=== PATIENT | female | born 1955 | race Caucasian/White ===

== ENCOUNTER 2017-11-04 03:56 | Inpatient (IN) | payer MEDICAID ==
[~2017-11-04] VITALS: Ht 172.7 cm; Wt 124.8 kg
[2017-11-04 04:44] LABS: Hematocrit 39.7 % (36.0-46.0); Hemoglobin 13.3 g/dL (12.2-16.2); Mean Corpuscular Hgb Conc. 33.5 g/dL (32.0-36.0); Mean Corpuscular Volume 98.5 fL (80.0-100.0); Platelet Count (auto) 104 10^3/uL (140-450); Red Blood Cells 4.03 10^6/uL (4.0-5.20); Red Cell Distribution Width 14.5 % (11.8-14.3); White Blood Cell 3.3 10^3/uL (4.4-10.8)
[2017-11-04] MEDS ORDERED: cloNIDine HCL 0.1 MG TAB PO ONE ×2 (04:45→05:15)
[2017-11-04 05:01] LABS: Basophils % (manual) 0 (0.0-2.0); Blast Cells 0; Metamyelocytes % 0; Myelocytes % 0; Promyelocytes % 0; Reactive Lymphocytes 0
[2017-11-04 05:15] LABS: Albumin 3.6 g/dL (3.4-5.0); BUN/Creatinine Ratio 11.1; Bilirubin, Total 0.9 mg/dL (0.2-1.0); Calcium 8.6 mg/dL (8.5-10.1); Potassium 4.1 mmol/L (3.5-5.1)
[2017-11-04 06:27] LABS: Band Neutrophils % (manual) 2; Eosinophils % (manual) 1 (0-7); Lymphocytes % (manual) 14 (10.0-50.0); Monocytes % (manual) 3 (0-12)
[2017-11-04 07:11] LABS: Urine Bacteria None Seen /hpf (None Seen)
[2017-11-04] MEDS ORDERED: SPIRONOLACTONE 25 MG TAB PO ONE (07:30)
[2017-11-04] MEDS ORDERED: FUROSEMIDE 40 MG/4 ML VIAL IV ONE (07:30)
[2017-11-04 07:32] LABS: Urine Blood 1+ /uL (Negative)
[2017-11-04 07:35] LABS: Urine WBC 1 /hpf (0 - 5)
[2017-11-04] MEDS ORDERED: IOHEXOL 350 MG/ML 100ML IJ ONE (08:56)
[2017-11-04] MEDS ORDERED: ACETAMINOPHEN 500 MG TAB PO ONE (09:15)
[2017-11-04] MEDS ORDERED: PROMETHAZINE HCL 25 MG/ML 1ML IV PRN (12:45)
[2017-11-04] MEDS ORDERED: HYDROcodone-ACET 5/325MG TAB PO PRN (12:45)
[2017-11-04] MEDS ORDERED: LORazepam 0.5 MG TAB PO PRN (12:45)
[2017-11-04] MEDS ORDERED: LACTULOSE 20Gm/30ML SOLN PO PRN (12:45)
[2017-11-04] MEDS ORDERED: NITROGLYCERIN 0.4 MG SL TAB SL PRN (12:45)
[2017-11-04] MEDS ORDERED: MORPHINE SULFATE 10 MG/ML INJ 1ML SDV IV PRN ×2 (12:45)
[2017-11-04] MEDS ORDERED: BENAZEPRIL HCL 10 MG TAB PO ONE (13:00)
[2017-11-04] MEDS ORDERED: METOPROLOL TARTRATE 50 MG TAB PO ONE (13:00)
[2017-11-04] MEDS ORDERED: ENALAPRIL MALEATE 2.5 MG TAB PO SCH (13:00)
[2017-11-04] MEDS ORDERED: CARVEDILOL 3.125 MG TAB PO SCH (13:00)
[2017-11-04] MEDS: NITROGLYCERIN 0.2MG/HR TOPICAL PATCH TD SCH (13:15)
[2017-11-04] MEDS: GABAPENTIN 300 MG CAP PO SCH ×2 (13:15→22:28)
[2017-11-04 13:18] LABS: Alcohol, Urine < 3.0 mg/dL (0-5); Amphetamine Screen, Urine NEGATIVE (NEGATIVE); Barbiturate Scree,Urine NEGATIVE (NEGATIVE); Benzodiazephine Screen, Urine NEGATIVE (NEGATIVE); Cannabinoid Screen, Urine NEGATIVE (NEGATIVE); Cocaine Screen, Urine NEGATIVE (NEGATIVE); Opiate Scree,Urine NEGATIVE (NEGATIVE); Phencyclidine Screen, Urine NEGATIVE (NEGATIVE)
[2017-11-04] MEDS: SODIUM CHLOR 0.9% PF (SALINE LOCK) 10ML VIAL IV SCH ×2 (15:17→22:28)
[2017-11-04] MEDS ORDERED: ENALAPRIL MALEATE 10 MG TAB PO ONE (15:45)
[2017-11-04 17:00] VITALS: BP 146/81
[2017-11-04] MEDS ORDERED: GLIM4TAB42 PO (17:08)
[2017-11-04] MEDS ORDERED: FURO40TA PO (17:08)
[2017-11-04] MEDS ORDERED: BENA20TA14 PO (17:08)
[2017-11-04] MEDS ORDERED: SIMV10TA84 PO (17:08)
[2017-11-04] MEDS ORDERED: POTA10TA51 PO (17:08)
[2017-11-04] MEDS ORDERED: METO-159 PO (17:08)
[2017-11-04] MEDS ORDERED: METF-371 PO (17:08)
[2017-11-04] MEDS ORDERED: GABA100C9 PO (17:08)
[2017-11-04] MEDS ORDERED: SITA100T7 PO (17:08)
[2017-11-04] MEDS: FUROSEMIDE 40 MG/4 ML VIAL IV SCH (17:37)
[2017-11-04] MEDS ORDERED: INSLANTI SC (20:22)
[2017-11-04] MEDS ORDERED: FUROSEMIDE 40 MG/4 ML VIAL IV SCH (22:00)
[2017-11-04] MEDS: InsuLIN REG 1unit/0.01ml Soln (100units/ml) SC SCH (22:00)
[2017-11-04] MEDS ORDERED: DEXTROSE (50%) 50ML SYRG IV PRN (22:15)
[2017-11-04 22:16] VITALS: BP 139/74
[2017-11-04] MEDS: ATORVASTATIN 20 MG TAB PO SCH (22:28)
[2017-11-04] MEDS: METOPROLOL TARTRATE 50 MG TAB PO SCH (22:29)
[2017-11-04] MEDS: ACCU-CHEK COMFORT CURVE STRIP VI SCH (22:29)
[2017-11-04] MEDS: POTASSIUM CHL 20 Meq TABLET PO SCH (22:30)
[2017-11-05] MEDS: TEMAZEPAM 15 MG CAP PO PRN ×2 (00:50→21:42)
[2017-11-05 04:50] VITALS: BP 123/58
[2017-11-05] MEDS: SODIUM CHLOR 0.9% PF (SALINE LOCK) 10ML VIAL IV SCH ×3 (05:59→21:43)
[2017-11-05] MEDS: FUROSEMIDE 40 MG/4 ML VIAL IV SCH ×2 (06:00→17:59)
[2017-11-05] MEDS: ACCU-CHEK COMFORT CURVE STRIP VI SCH ×4 (06:01→21:43)
[2017-11-05] MEDS: InsuLIN REG 1unit/0.01ml Soln (100units/ml) SC SCH ×4 (06:21→22:00)
[2017-11-05] MEDS: INSULIN DETEMIR(LEVEMIR) 1unit/0.01ml Soln (100units/ml) SC SCH (06:21)
[2017-11-05 07:24] LABS: Basophils # (auto) 0 uL; Basophils % (auto) 0.6 % (0.0-2.0); Eosinophils # (auto) 0 uL; Eosinophils % (auto) 0.5 % (0.0-7.0); Hematocrit 39.6 % (36.0-46.0); Hemoglobin 13.3 g/dL (12.2-16.2); Lymphocytes # (auto) 0.7 uL; Lymphocytes % (auto) 24.5 % (10.0-50.0); Mean Corpuscular Hemoglobin 32.9 pg (28.0-32.0); Mean Corpuscular Hgb Conc. 33.7 g/dL (32.0-36.0); Mean Corpuscular Volume 97.6 fL (80.0-100.0); Monocytes # (auto) 0.5 uL; Monocytes % (auto) 17.3 % (0.0-12.0); Neutrophils # (auto) 1.6 uL; Neutrophils % (auto) 57.1 % (37.0-80.0); Nucleated Red Blood Cells % 0.1 %; Platelet Count (auto) 98 10^3/uL (140-450); Red Blood Cells 4.05 10^6/uL (4.0-5.20); Red Cell Distribution Width 14.6 % (11.8-14.3); White Blood Cell 2.8 10^3/uL (4.4-10.8)
[2017-11-05 07:47] LABS: Albumin 3.3 g/dL (3.4-5.0); BUN/Creatinine Ratio 14.7; Bilirubin, Total 0.7 mg/dL (0.2-1.0); Calcium 8.7 mg/dL (8.5-10.1); Potassium 3.8 mmol/L (3.5-5.1); Total Protein 7.5 g/dL (6.4-8.2)
[2017-11-05 08:00] VITALS: BP 148/63
[2017-11-05] MEDS ORDERED: ADENOSINE 105 MG in GIVE UN-DILUTED 0 ML IV STA (09:32)
[2017-11-05 10:14] VITALS: BP 151/71
[2017-11-05] MEDS: POTASSIUM CHL 20 Meq TABLET PO SCH ×2 (11:49→21:42)
[2017-11-05] MEDS: GABAPENTIN 300 MG CAP PO SCH ×2 (11:50→21:42)
[2017-11-05] MEDS: BENAZEPRIL HCL 10 MG TAB PO SCH (11:50)
[2017-11-05] MEDS: METOPROLOL TARTRATE 50 MG TAB PO SCH ×2 (11:50→22:06)
[2017-11-05] MEDS: ENOXAPARIN SOD 40 MG/0.4 ML SYRINGE SC SCH (11:51)
[2017-11-05] MEDS: PANTOPRAZOLE 40 MG TAB PO SCH (11:51)
[2017-11-05] MEDS: ENALAPRIL MALEATE 10 MG TAB PO SCH (11:51)
[2017-11-05] MEDS: NITROGLYCERIN 0.2MG/HR TOPICAL PATCH TD SCH (11:51)
[2017-11-05 12:00] VITALS: BP 156/81
[2017-11-05] MEDS: ACETAMINOPHEN 500 MG TAB PO PRN (16:36)
[2017-11-05] MEDS ORDERED: cefTRIAXone 1GM/10ml IVPUSH 10 ML IV ONE (17:15)
[2017-11-05 17:20] VITALS: BP 114/62
[2017-11-05] MEDS ORDERED: ALBUTEROL SULF 2.5 MG/0.5ML(0.5%) NEB SOLN NEB SCH (18:00)
[2017-11-05] MEDS: ALBUTEROL SULF 2.5 MG/0.5ML(0.5%) NEB SOLN NEB SCH ×2 (18:49→22:04)
[2017-11-05] MEDS: ATORVASTATIN 20 MG TAB PO SCH (21:42)
[2017-11-05 22:00] VITALS: BP 139/69
[2017-11-06] MEDS: ALBUTEROL SULF 2.5 MG/0.5ML(0.5%) NEB SOLN NEB SCH ×6 (02:14→23:10)
[2017-11-06 05:00] VITALS: BP 113/44
[2017-11-06 06:24] LABS: Basophils # (auto) 0 uL; Basophils % (auto) 0.5 % (0.0-2.0); Eosinophils # (auto) 0 uL; Hematocrit 38.3 % (36.0-46.0); Hemoglobin 12.7 g/dL (12.2-16.2); Lymphocytes # (auto) 0.8 uL; Lymphocytes % (auto) 28.1 % (10.0-50.0); Mean Corpuscular Hemoglobin 32.3 pg (28.0-32.0); Mean Corpuscular Hgb Conc. 33.1 g/dL (32.0-36.0); Mean Corpuscular Volume 97.5 fL (80.0-100.0); Monocytes # (auto) 0.5 uL; Monocytes % (auto) 16.3 % (0.0-12.0); Neutrophils # (auto) 1.6 uL; Neutrophils % (auto) 54.1 % (37.0-80.0); Nucleated Red Blood Cells % 0.4 %; Platelet Count (auto) 102 10^3/uL (140-450); Red Blood Cells 3.93 10^6/uL (4.0-5.20); Red Cell Distribution Width 14.4 % (11.8-14.3)
[2017-11-06] MEDS: FUROSEMIDE 40 MG/4 ML VIAL IV SCH (06:38)
[2017-11-06] MEDS: ACCU-CHEK COMFORT CURVE STRIP VI SCH ×4 (06:39→22:40)
[2017-11-06] MEDS: SODIUM CHLOR 0.9% PF (SALINE LOCK) 10ML VIAL IV SCH ×3 (06:39→22:39)
[2017-11-06] MEDS: InsuLIN REG 1unit/0.01ml Soln (100units/ml) SC SCH ×4 (06:39→22:40)
[2017-11-06] MEDS: INSULIN DETEMIR(LEVEMIR) 1unit/0.01ml Soln (100units/ml) SC SCH (06:39)
[2017-11-06 06:43] LABS: Albumin 3.1 g/dL (3.4-5.0); BUN/Creatinine Ratio 17.6; Bilirubin, Total 0.7 mg/dL (0.2-1.0); Calcium 8.4 mg/dL (8.5-10.1); Potassium 4.1 mmol/L (3.5-5.1); Total Protein 7.1 g/dL (6.4-8.2)
[2017-11-06 07:57] VITALS: BP 145/66
[2017-11-06] MEDS: ENOXAPARIN SOD 40 MG/0.4 ML SYRINGE SC SCH (08:59)
[2017-11-06] MEDS: GABAPENTIN 300 MG CAP PO SCH ×2 (08:59→22:40)
[2017-11-06] MEDS: BENAZEPRIL HCL 10 MG TAB PO SCH (09:00)
[2017-11-06] MEDS: PANTOPRAZOLE 40 MG TAB PO SCH (09:01)
[2017-11-06] MEDS: POTASSIUM CHL 20 Meq TABLET PO SCH ×2 (09:01→22:39)
[2017-11-06] MEDS: METOPROLOL TARTRATE 50 MG TAB PO SCH ×2 (09:01→22:40)
[2017-11-06] MEDS: ENALAPRIL MALEATE 10 MG TAB PO SCH (09:01)
[2017-11-06] MEDS: cefTRIAXone 1GM/10ml IVPUSH 10 ML IV SCH (09:02)
[2017-11-06] MEDS: NITROGLYCERIN 0.2MG/HR TOPICAL PATCH TD SCH (09:02)
[2017-11-06 12:00] VITALS: BP 141/61
[2017-11-06] MEDS: ACETAMINOPHEN 500 MG TAB PO PRN (12:22)
[2017-11-06 17:00] VITALS: BP 122/66
[2017-11-06] MEDS: ATORVASTATIN 20 MG TAB PO SCH (22:39)
[2017-11-06 23:34] VITALS: BP 148/78
[2017-11-07] MEDS: ALBUTEROL SULF 2.5 MG/0.5ML(0.5%) NEB SOLN NEB SCH ×6 (02:37→22:00)
[2017-11-07 04:55] VITALS: BP 142/83
[2017-11-07 06:06] VITALS: BP 155/73
[2017-11-07] MEDS: SODIUM CHLOR 0.9% PF (SALINE LOCK) 10ML VIAL IV SCH ×2 (06:37→17:42)
[2017-11-07] MEDS: INSULIN DETEMIR(LEVEMIR) 1unit/0.01ml Soln (100units/ml) SC SCH (06:38)
[2017-11-07] MEDS: InsuLIN REG 1unit/0.01ml Soln (100units/ml) SC SCH ×3 (06:38→17:00)
[2017-11-07] MEDS: ACCU-CHEK COMFORT CURVE STRIP VI SCH ×3 (06:38→17:43)
[2017-11-07 08:30] VITALS: BP 146/54
[2017-11-07] MEDS: POTASSIUM CHL 20 Meq TABLET PO SCH (09:12)
[2017-11-07] MEDS: GABAPENTIN 300 MG CAP PO SCH (09:14)
[2017-11-07] MEDS: METOPROLOL TARTRATE 50 MG TAB PO SCH (09:14)
[2017-11-07] MEDS: ENALAPRIL MALEATE 10 MG TAB PO SCH (09:15)
[2017-11-07] MEDS: PANTOPRAZOLE 40 MG TAB PO SCH (09:15)
[2017-11-07] MEDS: BENAZEPRIL HCL 10 MG TAB PO SCH (09:16)
[2017-11-07] MEDS: ENOXAPARIN SOD 40 MG/0.4 ML SYRINGE SC SCH (09:16)
[2017-11-07] MEDS: cefTRIAXone 1GM/10ml IVPUSH 10 ML IV SCH (09:19)
[2017-11-07] MEDS: NITROGLYCERIN 0.2MG/HR TOPICAL PATCH TD SCH (10:00)
[2017-11-07 11:41] VITALS: BP 141/64
[2017-11-07 12:30] VITALS: BP 134/50
== END 2017-11-07 20:40 | disposition home or self-care (01) | DRG 194 ==
LOC: ER 04:02 → TELE 04:03 → TELE-EAST 16:29
PROVIDERS: ADMIT Internal Medicine; ATTEND Internal Medicine
DX: I13.0 Hypertensive heart and chronic kidney disease with heart failure and stage 1 through stage 4 chronic kidney disease, or unspecified chronic kidney disease (principal); E11.21 Type 2 diabetes mellitus with diabetic nephropathy; D69.6 Thrombocytopenia, unspecified; E11.40 Type 2 diabetes mellitus with diabetic neuropathy, unspecified; E44.0 Moderate protein-calorie malnutrition; E11.22 Type 2 diabetes mellitus with diabetic chronic kidney disease; N18.3 Chronic kidney disease, stage 3 (moderate); J20.9 Acute bronchitis, unspecified; I50.33 Acute on chronic diastolic (congestive) heart failure; I16.0 Hypertensive urgency; E66.01 Morbid (severe) obesity due to excess calories; R09.02 Hypoxemia; Z68.41 Body mass index [BMI] 40.0-44.9, adult; Z90.49 Acquired absence of other specified parts of digestive tract; Z79.4 Long term (current) use of insulin; Z79.899 Other long term (current) drug therapy; R09.89 Other specified symptoms and signs involving the circulatory and respiratory systems
CPT/HCPCS: 36415; 36600; 71045; 71275; 78452; 80053; 80061; 80307; 81001; 82550; 82805; 82962; 83735; 83880; 84443; 84484; 85007; 85025; 85027; 85379; 85652; 86141; 87040; 87400; 93005; 93017; 93306; 93970; 94640; 96374; J0153; J1815

== ENCOUNTER 2022-04-24 04:23 | Inpatient (IN) | payer MEDICARE, MEDICAID ==
[2022-04-24] VITALS (30 sets, daily range): BP systolic 127–168; BP diastolic 42–79
[~2022-04-24] VITALS: Ht 167.6 cm; Wt 84.9 kg
[~2022-04-24 04:23] MED LIST: BENA20TA14 PO; FURO1TAB31 PO; GABA100C9 PO; GLIM4TAB42 PO; INSLANTI SC; METF-371 PO; METO-159 PO; POTA10TA51 PO; SIMV10TA84 PO; SITA100T7 PO
[2022-04-24] MEDS ORDERED: ALBUTEROL SULF 2.5 MG/0.5ML(0.5%) NEB SOLN NEB ONE (05:00)
[2022-04-24] MEDS ORDERED: methylPREDNISolone SOD SUCC 125 MG/2 ML VL IV ONE (05:00)
[2022-04-24] MEDS ORDERED: IPRATROPIUM BROM 0.5 MG/2.5ML INH SOL NEB ONE (05:00)
[2022-04-24 05:07] LABS: Basophils # (auto) 0 10 ^3/uL (0-0.2); Basophils % (auto) 0.1 % (0.0-2.0); Eosinophils # (auto) 0.2 10 ^3/uL (0-0.8); Eosinophils % (auto) 1.9 % (0.0-7.0); Lymphocytes % (auto) 7.9 % (10.0-50.0); Mean Corpuscular Hemoglobin 30.1 pg (28.0-32.0); Mean Corpuscular Hgb Conc. 31.7 g/dL (32.0-36.0); Monocytes # (auto) 0.8 10 ^3/uL (0-1.3); Monocytes % (auto) 5.7 % (0.0-12.0); Neutrophils # (auto) 11.2 10 ^3/uL (1.6-8.6); Neutrophils % (auto) 84.4 % (37.0-80.0); Red Blood Cells 4.32 10^6/uL (4.0-5.20); Red Cell Distribution Width 15.9 % (11.8-14.3); White Blood Cell 13.2 10^3/uL (4.4-10.8)
[2022-04-24] MEDS ORDERED: AZITHROMYCIN 500MG/ 250ML 250 ML IV ONE (05:45)
[2022-04-24] MEDS ORDERED: cefTRIAXone 1GM/50ML D5W 50 ML IV ONE (05:45)
[2022-04-24 06:13] LABS: Albumin 2.2 g/dL (3.4-5.0); Calcium 8.4 mg/dL (8.5-10.1); Magnesium 3.2 mg/dL (1.6-2.6); Potassium 4.6 mmol/L (3.5-5.1)
[2022-04-24 06:16] LABS: Bilirubin, Total 1.8 mg/dL (0.2-1.0); Total Protein 8.2 g/dL (6.4-8.2)
[2022-04-24 06:18] LABS: BUN/Creatinine Ratio 40.8
[2022-04-24 07:00] LABS: Partial Thromboplastin Time 31.6 sec (23.6-33.0)
[2022-04-24 07:24] LABS: Urine Bacteria MANY /hpf (None Seen); Urine Blood 3+ /uL (Negative); Urine Budding Yeast OCCASIONAL /hpf (None Seen); Urine Mucus FEW (None Seen); Urine Specific Gravity 1.017 (1.001-1.035); Urine WBC 423 /hpf (0 - 5); Urine WBC Clumps PRESENT /hpf (None Seen)
[2022-04-24] MEDS ORDERED: ONDANSETRON HCL 4 MG/2 ML VIAL IV PRN (11:15)
[2022-04-24] MEDS ORDERED: DEXTROSE (50%) 50ML SYRG IV PRN (11:15)
[2022-04-24] MEDS ORDERED: MORPHINE SULFATE INJ 2 MG/ml SYRG IV PRN ×2 (11:15)
[2022-04-24] MEDS ORDERED: FUROSEMIDE 40 MG/4 ML VIAL IV ONE (11:15)
[2022-04-24] MEDS ORDERED: NITROGLYCERIN 0.4 MG SL TAB SL PRN (11:15)
[2022-04-24 11:32] LABS: Cholesterol 83 mg/dL (< 200)
[2022-04-24 11:35] LABS: HDL Cholesterol 19 mg/dL (40-59); LDL Cholesterol 51 mg/dL (< 100); Triglycerides 162 mg/dL (< 150)
[2022-04-24] MEDS: IPRATROPIUM BROM 0.5 MG/2.5ML INH SOL NEB SCH ×2 (11:57→19:57)
[2022-04-24] MEDS: ALBUTEROL SULF 2.5 MG/0.5ML(0.5%) NEB SOLN NEB SCH ×2 (11:57→19:57)
[2022-04-24] MEDS: ACCU-CHEK COMFORT CURVE STRIP VI SCH ×3 (13:09→22:13)
[2022-04-24] MEDS: InsuLIN REG 1unit/0.01ml Soln (100units/ml) SC SCH ×3 (13:43→22:16)
[2022-04-24] MEDS ORDERED: HEPARIN SODIUM (PORCINE) 5000 UNITS/ML 1ML VIAL IV ONE (15:45)
[2022-04-24 17:01] LABS: Basophils # (auto) 0.1 10 ^3/uL (0-0.2); Basophils % (auto) 1.6 % (0.0-2.0); Eosinophils # (auto) 0 10 ^3/uL (0-0.8); Hematocrit 40.8 % (36.0-46.0); Hemoglobin 12.9 g/dL (12.2-16.2); Lymphocytes # (auto) 0.3 10 ^3/uL (0.4-5.4); Lymphocytes % (auto) 3.7 % (10.0-50.0); Mean Corpuscular Hemoglobin 30.4 pg (28.0-32.0); Mean Corpuscular Hgb Conc. 31.6 g/dL (32.0-36.0); Mean Corpuscular Volume 96.2 fL (80.0-100.0); Monocytes # (auto) 0.2 10 ^3/uL (0-1.3); Monocytes % (auto) 2.1 % (0.0-12.0); Neutrophils # (auto) 8.4 10 ^3/uL (1.6-8.6); Neutrophils % (auto) 92.6 % (37.0-80.0); Nucleated Red Blood Cells % 0.4 %; Red Blood Cells 4.25 10^6/uL (4.0-5.20); Red Cell Distribution Width 15.9 % (11.8-14.3)
[2022-04-24] MEDS: HEPARIN DRIP/D5W 100UNITS/ML 250 ML IV SCH (17:04)
[2022-04-24 17:35] LABS: INR 1.36 (0.9-1.15); Partial Thromboplastin Time 30.9 sec (23.6-33.0)
[2022-04-24] MEDS ORDERED: LORazepam 2MG/ML-1ML VIAL IV ONE (18:00)
[2022-04-24] MEDS ORDERED: FUROSEMIDE 20 MG/2 ML VIAL IV ONE (18:00)
[2022-04-24 19:00] LABS: Urine Bacteria FEW /hpf (None Seen); Urine Blood 3+ /uL (Negative); Urine Mucus FEW (None Seen); Urine WBC 219 /hpf (0 - 5); Urine WBC Clumps PRESENT /hpf (None Seen)
[2022-04-24] MEDS ORDERED: LIDOCAINE 1% (LOCAL ANESTH.) PF 5ml SDV ID ONE (19:30)
[2022-04-24 19:36] LABS: Protein, Urine 20.1 mg/dL (0.0-11.9)
[2022-04-24] MEDS ORDERED: HEPARIN SODIUM (PORCINE) 5000 UNITS/ML 1ML VIAL SC SCH (22:00)
[2022-04-24] MEDS: SODIUM CHLOR 0.9% PF (SALINE LOCK) 10ML VIAL/SYR IV SCH (22:12)
[2022-04-24 23:36] LABS: Basophils # (auto) 0 10 ^3/uL (0-0.2); Basophils % (auto) 0.3 % (0.0-2.0); Eosinophils # (auto) 0 10 ^3/uL (0-0.8); Hematocrit 39.5 % (36.0-46.0); Hemoglobin 12.3 g/dL (12.2-16.2); Lymphocytes # (auto) 0.6 10 ^3/uL (0.4-5.4); Lymphocytes % (auto) 4.7 % (10.0-50.0); Mean Corpuscular Hemoglobin 30.3 pg (28.0-32.0); Mean Corpuscular Hgb Conc. 31.1 g/dL (32.0-36.0); Mean Corpuscular Volume 97.4 fL (80.0-100.0); Monocytes # (auto) 0.5 10 ^3/uL (0-1.3); Monocytes % (auto) 4.7 % (0.0-12.0); Neutrophils # (auto) 10.6 10 ^3/uL (1.6-8.6); Neutrophils % (auto) 90.3 % (37.0-80.0); Nucleated Red Blood Cells % 0.2 %; Red Blood Cells 4.05 10^6/uL (4.0-5.20); Red Cell Distribution Width 16.2 % (11.8-14.3); White Blood Cell 11.7 10^3/uL (4.4-10.8)
[2022-04-24 23:51] LABS: INR 1.37 (0.9-1.15); Partial Thromboplastin Time 53.8 sec (23.6-33.0)
[2022-04-25] VITALS (54 sets, daily range): BP systolic 89–162; BP diastolic 38–81
[2022-04-25] MEDS: guaiFENesin-DM 100/10mg/5ml SYR PO PRN ×3 (00:01→16:08)
[2022-04-25] MEDS: ALBUTEROL SULF 2.5 MG/0.5ML(0.5%) NEB SOLN NEB SCH ×4 (01:50→22:22)
[2022-04-25 05:30] LABS: Basophils # (auto) 0.1 10 ^3/uL (0-0.2); Basophils % (auto) 0.5 % (0.0-2.0); Eosinophils # (auto) 0 10 ^3/uL (0-0.8); Hemoglobin 12.1 g/dL (12.2-16.2); Lymphocytes # (auto) 0.5 10 ^3/uL (0.4-5.4); Lymphocytes % (auto) 3.9 % (10.0-50.0); Mean Corpuscular Hemoglobin 31.4 pg (28.0-32.0); Mean Corpuscular Hgb Conc. 32.8 g/dL (32.0-36.0); Mean Corpuscular Volume 95.8 fL (80.0-100.0); Monocytes # (auto) 0.6 10 ^3/uL (0-1.3); Neutrophils # (auto) 11.6 10 ^3/uL (1.6-8.6); Neutrophils % (auto) 90.6 % (37.0-80.0); Nucleated Red Blood Cells % 0.2 %; Red Blood Cells 3.87 10^6/uL (4.0-5.20); Red Cell Distribution Width 15.8 % (11.8-14.3); White Blood Cell 12.8 10^3/uL (4.4-10.8)
[2022-04-25 05:42] LABS: INR 1.38 (0.9-1.15); Partial Thromboplastin Time 48.1 sec (23.6-33.0)
[2022-04-25 05:56] LABS: Albumin 2.1 g/dL (3.4-5.0); Calcium 8.6 mg/dL (8.5-10.1); Potassium 4.4 mmol/L (3.5-5.1)
[2022-04-25] MEDS ORDERED: methylPREDNISolone SOD SUCC 125 MG/2 ML VL IV SCH (06:00)
[2022-04-25 06:04] LABS: BUN/Creatinine Ratio 53.6; Bilirubin, Direct 0.5 mg/dL (0-0.2); Bilirubin, Total 0.8 mg/dL (0.2-1.0); Phosphorus 5.9 mg/dL (2.5-4.90); Total Protein 7.7 g/dL (6.4-8.2); Uric Acid 22.5 mg/dL (2.6-6.0)
[2022-04-25] MEDS: HEPARIN DRIP/D5W 100UNITS/ML 250 ML IV SCH (06:15)
[2022-04-25] MEDS: InsuLIN REG 1unit/0.01ml Soln (100units/ml) SC SCH ×4 (06:42→22:41)
[2022-04-25] MEDS: ACCU-CHEK COMFORT CURVE STRIP VI SCH ×4 (06:42→22:40)
[2022-04-25] MEDS: IPRATROPIUM BROM 0.5 MG/2.5ML INH SOL NEB SCH ×3 (07:09→22:22)
[2022-04-25] MEDS ORDERED: cefTRIAXone 1GM/50ML D5W 50 ML IV SCH (09:00)
[2022-04-25] MEDS ORDERED: FUROSEMIDE 20 MG/2 ML VIAL IV ONE (09:45)
[2022-04-25] MEDS ORDERED: ENOXAPARIN SOD 40 MG/0.4 ML SYRINGE SC SCH (10:00)
[2022-04-25] MEDS ORDERED: AZITHROMYCIN 500MG/ 250ML 250 ML IV SCH (10:00)
[2022-04-25] MEDS: SODIUM CHLOR 0.9% PF (SALINE LOCK) 10ML VIAL/SYR IV SCH ×2 (10:10→21:21)
[2022-04-25] MEDS: LORazepam 2MG/ML-1ML VIAL IV PRN ×2 (10:18)
[2022-04-25] MEDS: INSULIN LANTUS (GLARGINE) 1 /0.01ml (100units/ml) SC SCH (10:18)
[2022-04-25 11:13] LABS: INR 1.37 (0.9-1.15)
[2022-04-25] MEDS ORDERED: FUROSEMIDE 40 MG/4 ML VIAL IV ONE (11:15)
[2022-04-25] MEDS ORDERED: FAMOTIDINE (10MG/ML) 2ML VL IV ONE (11:15)
[2022-04-25] MEDS: PIPERACILLIN-TAZOB 2.25GM 50 ML IV SCH ×2 (12:00→18:21)
[2022-04-25] MEDS ORDERED: LORazepam 2MG/ML-1ML VIAL IV PRN (14:15)
[2022-04-25] MEDS: hydrALAZINE HCL 20 MG/ML VL IV PRN (14:36)
[2022-04-25] MEDS ORDERED: ETOMIDATE (2MG/ML) 20ML VIAL IV ONE (16:45)
[2022-04-25] MEDS ORDERED: SUCCINYLCHOLINE CHLORIDE 20 MG/ML 10ML VIAL IV ONE ×2 (16:45→17:45)
[2022-04-25] MEDS ORDERED: PROPOFOL 100 ML IV ONE (17:39)
[2022-04-25] MEDS: PROPOFOL 100 ML IV SCH ×3 (17:45→22:15)
[2022-04-25] MEDS: MIDAZOLAM DRIP 50 mg/50mL 50 ML IV SCH ×3 (18:00→22:15)
[2022-04-25] MEDS ORDERED: MIDAZOLAM DRIP 50 mg/50mL 50 ML IV ONE (18:12)
[2022-04-25] MEDS ORDERED: fentaNYL Drip 2500mCg/250mlNS 250 ML IV SCH ×2 (18:15→22:15)
[2022-04-25] MEDS ORDERED: fentaNYL Drip 2500mCg/250mlNS 250 ML IV ONE (18:22)
[2022-04-25] MEDS ORDERED: ROCURONIUM 10MG/ML 10ML VIAL IV ONE (19:00)
[2022-04-25] MEDS ORDERED: ROCURONIUM 10MG/ML 10ML VIAL IV PRN (19:00)
[2022-04-25] MEDS: NOREPINEPHRINE 8 MG/250ML KIT 250 ML IV SCH (19:21)
[2022-04-25 19:22] LABS: INR 1.38 (0.9-1.15); Partial Thromboplastin Time 60.6 sec (23.6-33.0)
[2022-04-25] MEDS: methylPREDNISolone SOD SUCC 40 MG/ML VL IV SCH (21:48)
[2022-04-25] MEDS ORDERED: PROPOFOL 100 ML IV SCH (22:15)
[2022-04-25] MEDS: fentaNYL Drip 2500mCg/250mlNS 250 ML IV SCH (22:15)
[2022-04-25] MEDS ORDERED: MIDAZOLAM DRIP 50 mg/50mL 50 ML IV SCH (22:15)
[2022-04-26] VITALS (98 sets, daily range): BP systolic 96–144; BP diastolic 37–77
[2022-04-26 01:17] LABS: INR 1.41 (0.9-1.15)
[2022-04-26 01:19] LABS: Partial Thromboplastin Time 77.7 sec (23.6-33.0)
[2022-04-26] MEDS: PIPERACILLIN-TAZOB 2.25GM 50 ML IV SCH ×5 (02:46→23:41)
[2022-04-26] MEDS: PROPOFOL 100 ML IV SCH ×3 (02:47→18:25)
[2022-04-26] MEDS: MIDAZOLAM DRIP 50 mg/50mL 50 ML IV SCH ×5 (02:48→22:11)
[2022-04-26 04:56] LABS: Basophils # (auto) 0 10 ^3/uL (0-0.2); Basophils % (auto) 0.3 % (0.0-2.0); Eosinophils # (auto) 0 10 ^3/uL (0-0.8); Hematocrit 37.9 % (36.0-46.0); Hemoglobin 11.9 g/dL (12.2-16.2); Lymphocytes # (auto) 0.3 10 ^3/uL (0.4-5.4); Lymphocytes % (auto) 2.1 % (10.0-50.0); Mean Corpuscular Hemoglobin 30.3 pg (28.0-32.0); Mean Corpuscular Hgb Conc. 31.3 g/dL (32.0-36.0); Mean Corpuscular Volume 96.7 fL (80.0-100.0); Monocytes # (auto) 0.6 10 ^3/uL (0-1.3); Monocytes % (auto) 3.7 % (0.0-12.0); Neutrophils # (auto) 14.3 10 ^3/uL (1.6-8.6); Neutrophils % (auto) 93.9 % (37.0-80.0); Nucleated Red Blood Cells % 0.2 %; Red Blood Cells 3.92 10^6/uL (4.0-5.20); Red Cell Distribution Width 16.9 % (11.8-14.3); White Blood Cell 15.3 10^3/uL (4.4-10.8)
[2022-04-26 05:13] LABS: Potassium 4.3 mmol/L (3.5-5.1)
[2022-04-26 05:19] LABS: BUN/Creatinine Ratio 59.3; Total Protein 7.3 g/dL (6.4-8.2)
[2022-04-26 05:35] LABS: INR 1.44 (0.9-1.15); Partial Thromboplastin Time 39.3 sec (23.6-33.0)
[2022-04-26] MEDS: ACCU-CHEK COMFORT CURVE STRIP VI SCH ×4 (05:42→21:55)
[2022-04-26] MEDS: InsuLIN REG 1unit/0.01ml Soln (100units/ml) SC SCH ×4 (05:43→21:54)
[2022-04-26] MEDS: ALBUTEROL SULF 2.5 MG/0.5ML(0.5%) NEB SOLN NEB SCH ×3 (06:43→20:36)
[2022-04-26] MEDS: IPRATROPIUM BROM 0.5 MG/2.5ML INH SOL NEB SCH ×3 (06:43→20:36)
[2022-04-26] MEDS ORDERED: FUROSEMIDE 20 MG/2 ML VIAL IV SCH (10:00)
[2022-04-26] MEDS: SODIUM CHLOR 0.9% PF (SALINE LOCK) 10ML VIAL/SYR IV SCH ×2 (10:00→21:50)
[2022-04-26] MEDS: INSULIN LANTUS (GLARGINE) 1 /0.01ml (100units/ml) SC SCH (11:12)
[2022-04-26] MEDS: FAMOTIDINE (10MG/ML) 2ML VL IV SCH (11:31)
[2022-04-26] MEDS: methylPREDNISolone SOD SUCC 40 MG/ML VL IV SCH ×2 (11:31→21:49)
[2022-04-26] MEDS ORDERED: FUROSEMIDE 40 MG/4 ML VIAL IV ONE (13:00)
[2022-04-26] MEDS ORDERED: Glucerna 1.2 Cal 1Liter BOTTLE GT SCH (13:00)
[2022-04-26] MEDS: HEPARIN DRIP/D5W 100UNITS/ML 250 ML IV SCH (13:15)
[2022-04-26] MEDS: fentaNYL Drip 2500mCg/250mlNS 250 ML IV SCH (13:59)
[2022-04-26] MEDS: NOREPINEPHRINE 8 MG/250ML KIT 250 ML IV SCH (19:00)
[2022-04-27] VITALS (85 sets, daily range): BP systolic 100–126; BP diastolic 38–47
[2022-04-27] MEDS: MIDAZOLAM DRIP 50 mg/50mL 50 ML IV SCH ×3 (03:25→13:45)
[2022-04-27] MEDS: PROPOFOL 100 ML IV SCH (04:10)
[2022-04-27 05:25] LABS: Basophils # (auto) 0 10 ^3/uL (0-0.2); Basophils % (auto) 0.2 % (0.0-2.0); Eosinophils # (auto) 0 10 ^3/uL (0-0.8); Hemoglobin 10.7 g/dL (12.2-16.2); Lymphocytes # (auto) 0.2 10 ^3/uL (0.4-5.4)
[2022-04-27 05:32] LABS: Hematocrit 33.6 % (36.0-46.0); Lymphocytes % (auto) 2.6 % (10.0-50.0); Mean Corpuscular Hemoglobin 31.2 pg (28.0-32.0); Mean Corpuscular Hgb Conc. 31.8 g/dL (32.0-36.0); Mean Corpuscular Volume 98.1 fL (80.0-100.0); Monocytes # (auto) 0.3 10 ^3/uL (0-1.3); Monocytes % (auto) 3.6 % (0.0-12.0); Neutrophils # (auto) 8.2 10 ^3/uL (1.6-8.6); Neutrophils % (auto) 93.6 % (37.0-80.0); Nucleated Red Blood Cells % 0.3 %; Red Blood Cells 3.43 10^6/uL (4.0-5.20); White Blood Cell 8.8 10^3/uL (4.4-10.8)
[2022-04-27 05:39] LABS: INR 1.27 (0.9-1.15); Partial Thromboplastin Time 30.2 sec (23.6-33.0)
[2022-04-27 06:01] LABS: BUN/Creatinine Ratio 48.3; Calcium 9.3 mg/dL (8.5-10.1); Potassium 4.7 mmol/L (3.5-5.1)
[2022-04-27] MEDS: ALBUTEROL SULF 2.5 MG/0.5ML(0.5%) NEB SOLN NEB SCH ×3 (06:05→18:49)
[2022-04-27] MEDS: IPRATROPIUM BROM 0.5 MG/2.5ML INH SOL NEB SCH ×3 (06:05→18:49)
[2022-04-27] MEDS: PIPERACILLIN-TAZOB 2.25GM 50 ML IV SCH ×4 (06:11→23:56)
[2022-04-27] MEDS: ACCU-CHEK COMFORT CURVE STRIP VI SCH ×4 (06:15→21:41)
[2022-04-27] MEDS: InsuLIN REG 1unit/0.01ml Soln (100units/ml) SC SCH ×4 (06:17→21:57)
[2022-04-27] MEDS ORDERED: FUROSEMIDE 20 MG/2 ML VIAL IV SCH (10:00)
[2022-04-27] MEDS: BUMETANIDE INJECTION 12.5 MG in GIVE UN-DILUTED 0 ML IV SCH ×2 (11:38→21:43)
[2022-04-27] MEDS: methylPREDNISolone SOD SUCC 40 MG/ML VL IV SCH ×2 (11:43→21:42)
[2022-04-27] MEDS: FAMOTIDINE (10MG/ML) 2ML VL IV SCH (11:43)
[2022-04-27] MEDS: NOREPINEPHRINE 8 MG/250ML KIT 250 ML IV SCH (19:00)
[2022-04-27] MEDS: SODIUM CHLOR 0.9% PF (SALINE LOCK) 10ML VIAL/SYR IV SCH ×2 (19:20→21:41)
[2022-04-27] MEDS: INSULIN LANTUS (GLARGINE) 1 /0.01ml (100units/ml) SC SCH (21:55)
[2022-04-27] MEDS: fentaNYL Drip 2500mCg/250mlNS 250 ML IV SCH (22:15)
[2022-04-28] VITALS (58 sets, daily range): BP systolic 113–163; BP diastolic 46–76
[2022-04-28] MEDS: MIDAZOLAM DRIP 50 mg/50mL 50 ML IV SCH ×2 (03:22→09:34)
[2022-04-28] MEDS: ACCU-CHEK COMFORT CURVE STRIP VI SCH ×4 (04:47→21:51)
[2022-04-28] MEDS: PIPERACILLIN-TAZOB 2.25GM 50 ML IV SCH ×4 (04:47→23:41)
[2022-04-28] MEDS: InsuLIN REG 1unit/0.01ml Soln (100units/ml) SC SCH ×4 (04:55→21:51)
[2022-04-28 05:28] LABS: Basophils # (auto) 0 10 ^3/uL (0-0.2); Eosinophils # (auto) 0 10 ^3/uL (0-0.8); Lymphocytes # (auto) 0.2 10 ^3/uL (0.4-5.4); Mean Corpuscular Hemoglobin 30.8 pg (28.0-32.0); Monocytes # (auto) 0.3 10 ^3/uL (0-1.3); Neutrophils # (auto) 7.3 10 ^3/uL (1.6-8.6); Nucleated Red Blood Cells % 0.2 %; White Blood Cell 7.8 10^3/uL (4.4-10.8)
[2022-04-28 05:32] LABS: Basophils % (auto) 0.4 % (0.0-2.0); Hematocrit 33.4 % (36.0-46.0); Hemoglobin 10.6 g/dL (12.2-16.2); Lymphocytes % (auto) 2.4 % (10.0-50.0); Mean Corpuscular Hgb Conc. 31.7 g/dL (32.0-36.0); Mean Corpuscular Volume 97.1 fL (80.0-100.0); Monocytes % (auto) 3.6 % (0.0-12.0); Neutrophils % (auto) 93.6 % (37.0-80.0); Red Blood Cells 3.44 10^6/uL (4.0-5.20); Red Cell Distribution Width 17.4 % (11.8-14.3)
[2022-04-28 05:34] LABS: BUN/Creatinine Ratio 44.7; Calcium 9.3 mg/dL (8.5-10.1); INR 1.27 (0.9-1.15); Partial Thromboplastin Time 27.6 sec (23.6-33.0); Potassium 4.8 mmol/L (3.5-5.1)
[2022-04-28] MEDS: IPRATROPIUM BROM 0.5 MG/2.5ML INH SOL NEB SCH ×3 (06:36→18:14)
[2022-04-28] MEDS: ALBUTEROL SULF 2.5 MG/0.5ML(0.5%) NEB SOLN NEB SCH ×3 (06:36→18:14)
[2022-04-28] MEDS ORDERED: SODIUM BICARBONATE 8.4% INJ 50ML SYRINGE ONE (08:44)
[2022-04-28] MEDS ORDERED: SODIUM BICARBONATE 8.4 % INJ 50ML VIAL IV ONE (08:45)
[2022-04-28] MEDS: FAMOTIDINE (10MG/ML) 2ML VL IV SCH (09:32)
[2022-04-28] MEDS: methylPREDNISolone SOD SUCC 40 MG/ML VL IV SCH ×2 (09:33→21:49)
[2022-04-28] MEDS: INSULIN LANTUS (GLARGINE) 1 /0.01ml (100units/ml) SC SCH ×2 (10:00→21:50)
[2022-04-28] MEDS: DOPamine 1600MCG/ML D5W 250 ML IV SCH ×2 (10:15→21:55)
[2022-04-28] MEDS ORDERED: FUROSEMIDE 100 MG/10ML VIAL IV ONE (13:00)
[2022-04-28] MEDS ORDERED: IODIXANOL 320MG/ML 100ML BTL IV ONE (15:04)
[2022-04-28] MEDS ORDERED: LIDOCAINE 2%HCL (LOCAL ANESTH.) INJ 10ml MDV ONE (15:05)
[2022-04-28] MEDS ORDERED: HEPARIN SODIUM (PORCINE) 5000 UNITS/ML 1ML VIAL ONE (15:37)
[2022-04-28] MEDS: SODIUM CHLOR 0.9% PF (SALINE LOCK) 10ML VIAL/SYR IV SCH ×2 (16:53→21:49)
[2022-04-28] MEDS: ALBUMIN 25% 50 ML IV SCH ×2 (17:27→20:51)
[2022-04-28] MEDS: NOREPINEPHRINE 8 MG/250ML KIT 250 ML IV SCH (19:00)
[2022-04-28] MEDS: PROPOFOL 100 ML IV SCH (22:15)
[2022-04-28] MEDS: fentaNYL Drip 2500mCg/250mlNS 250 ML IV SCH (23:41)
[2022-04-29] VITALS (85 sets, daily range): BP systolic 113–170; BP diastolic 49–76
[2022-04-29] MEDS: ALBUMIN 25% 50 ML IV SCH (01:44)
[2022-04-29 05:37] LABS: Basophils # (auto) 0 10 ^3/uL (0-0.2); Basophils % (auto) 0.2 % (0.0-2.0); Eosinophils # (auto) 0 10 ^3/uL (0-0.8); Lymphocytes # (auto) 0.2 10 ^3/uL (0.4-5.4); Monocytes # (auto) 0.3 10 ^3/uL (0-1.3); Nucleated Red Blood Cells % 0.2 %
[2022-04-29 05:40] LABS: Hematocrit 35.1 % (36.0-46.0); Hemoglobin 11.2 g/dL (12.2-16.2); Lymphocytes % (auto) 2.9 % (10.0-50.0); Mean Corpuscular Hemoglobin 30.6 pg (28.0-32.0); Mean Corpuscular Volume 95.6 fL (80.0-100.0); Monocytes % (auto) 5.8 % (0.0-12.0); Neutrophils # (auto) 5.5 10 ^3/uL (1.6-8.6); Neutrophils % (auto) 91.1 % (37.0-80.0); Red Blood Cells 3.68 10^6/uL (4.0-5.20); Red Cell Distribution Width 16.9 % (11.8-14.3)
[2022-04-29 05:58] LABS: Potassium 4.5 mmol/L (3.5-5.1)
[2022-04-29] MEDS: ALBUTEROL SULF 2.5 MG/0.5ML(0.5%) NEB SOLN NEB SCH ×3 (06:01→18:29)
[2022-04-29] MEDS: IPRATROPIUM BROM 0.5 MG/2.5ML INH SOL NEB SCH ×3 (06:01→18:29)
[2022-04-29 06:05] LABS: Albumin 2.6 g/dL (3.4-5.0); BUN/Creatinine Ratio 51.8; Bilirubin, Total 1.6 mg/dL (0.2-1.0); Calcium 9.5 mg/dL (8.5-10.1); Total Protein 7.3 g/dL (6.4-8.2)
[2022-04-29] MEDS ORDERED: ALBUMIN 25% 100 ML IV ONE (06:15)
[2022-04-29] MEDS ORDERED: ALBUMIN 25% 0 ML IV ONE (06:20)
[2022-04-29] MEDS: PIPERACILLIN-TAZOB 2.25GM 50 ML IV SCH ×4 (06:24→23:46)
[2022-04-29] MEDS: ACCU-CHEK COMFORT CURVE STRIP VI SCH ×4 (06:24→22:38)
[2022-04-29] MEDS: InsuLIN REG 1unit/0.01ml Soln (100units/ml) SC SCH ×4 (06:25→22:41)
[2022-04-29] MEDS: MIDAZOLAM DRIP 50 mg/50mL 50 ML IV SCH (06:27)
[2022-04-29] MEDS ORDERED: SODIUM CHL 0.9% 1000 ML BAG XX ONE (07:00)
[2022-04-29] MEDS: BUMETANIDE INJECTION 12.5 MG in GIVE UN-DILUTED 0 ML IV SCH (08:30)
[2022-04-29] MEDS: INSULIN LANTUS (GLARGINE) 1 /0.01ml (100units/ml) SC SCH ×2 (10:00→22:42)
[2022-04-29] MEDS: methylPREDNISolone SOD SUCC 40 MG/ML VL IV SCH ×2 (10:00→22:37)
[2022-04-29] MEDS: FAMOTIDINE (10MG/ML) 2ML VL IV SCH (10:00)
[2022-04-29] MEDS: NOREPINEPHRINE 8 MG/250ML KIT 250 ML IV SCH (19:00)
[2022-04-29] MEDS: SODIUM CHLOR 0.9% PF (SALINE LOCK) 10ML VIAL/SYR IV SCH ×2 (20:01→22:38)
[2022-04-29] MEDS: PROPOFOL 100 ML IV SCH (22:15)
[2022-04-29] MEDS: fentaNYL Drip 2500mCg/250mlNS 250 ML IV SCH (22:15)
[2022-04-29 22:17] LABS: Basophils # (auto) 0 10 ^3/uL (0-0.2); Eosinophils # (auto) 0 10 ^3/uL (0-0.8); Eosinophils % (auto) 0.1 % (0.0-7.0); Lymphocytes # (auto) 0.1 10 ^3/uL (0.4-5.4); Monocytes # (auto) 0.2 10 ^3/uL (0-1.3); Monocytes % (auto) 2.9 % (0.0-12.0); Neutrophils % (auto) 94.8 % (37.0-80.0)
[2022-04-29 22:18] LABS: Basophils % (auto) 0.2 % (0.0-2.0); Hematocrit 33.8 % (36.0-46.0); Hemoglobin 10.8 g/dL (12.2-16.2); Mean Corpuscular Hemoglobin 30.4 pg (28.0-32.0); Mean Corpuscular Volume 94.8 fL (80.0-100.0); Neutrophils # (auto) 5.9 10 ^3/uL (1.6-8.6); Nucleated Red Blood Cells % 0.2 %; Red Blood Cells 3.56 10^6/uL (4.0-5.20); Red Cell Distribution Width 16.2 % (11.8-14.3); White Blood Cell 6.2 10^3/uL (4.4-10.8)
[2022-04-30] VITALS (104 sets, daily range): BP systolic 128–176; BP diastolic 51–75
[2022-04-30] MEDS: IPRATROPIUM BROM 0.5 MG/2.5ML INH SOL NEB SCH ×4 (00:24→18:18)
[2022-04-30] MEDS: ALBUTEROL SULF 2.5 MG/0.5ML(0.5%) NEB SOLN NEB SCH ×4 (00:24→18:18)
[2022-04-30] MEDS: fentaNYL Drip 2500mCg/250mlNS 250 ML IV SCH (01:58)
[2022-04-30] MEDS: PIPERACILLIN-TAZOB 2.25GM 50 ML IV SCH ×4 (05:25→23:45)
[2022-04-30] MEDS: BUMETANIDE INJECTION 12.5 MG in GIVE UN-DILUTED 0 ML IV SCH ×2 (05:25→17:16)
[2022-04-30 05:45] LABS: Basophils # (auto) 0 10 ^3/uL (0-0.2); Eosinophils # (auto) 0 10 ^3/uL (0-0.8); Hemoglobin 11.7 g/dL (12.2-16.2); Lymphocytes # (auto) 0.2 10 ^3/uL (0.4-5.4); Monocytes # (auto) 0.2 10 ^3/uL (0-1.3); Neutrophils % (auto) 92.5 % (37.0-80.0)
[2022-04-30 05:50] LABS: Basophils % (auto) 0.2 % (0.0-2.0); Hematocrit 36.1 % (36.0-46.0); Lymphocytes % (auto) 3.2 % (10.0-50.0); Mean Corpuscular Hemoglobin 30.7 pg (28.0-32.0); Mean Corpuscular Hgb Conc. 32.2 g/dL (32.0-36.0); Mean Corpuscular Volume 95.3 fL (80.0-100.0); Monocytes % (auto) 4.1 % (0.0-12.0); Neutrophils # (auto) 4.9 10 ^3/uL (1.6-8.6); Nucleated Red Blood Cells % 0.1 %; Red Blood Cells 3.79 10^6/uL (4.0-5.20); Red Cell Distribution Width 16.5 % (11.8-14.3); White Blood Cell 5.3 10^3/uL (4.4-10.8)
[2022-04-30 05:53] LABS: BUN/Creatinine Ratio 47.3; Calcium 9.5 mg/dL (8.5-10.1); Potassium 4.5 mmol/L (3.5-5.1)
[2022-04-30] MEDS: ACCU-CHEK COMFORT CURVE STRIP VI SCH ×4 (07:49→21:22)
[2022-04-30] MEDS: InsuLIN REG 1unit/0.01ml Soln (100units/ml) SC SCH ×4 (07:51→21:24)
[2022-04-30] MEDS ORDERED: ALBUMIN 25% 100 ML IV PRN (09:15)
[2022-04-30] MEDS ORDERED: metOLazone 5 MG TAB PO ONE (09:15)
[2022-04-30] MEDS: FAMOTIDINE (10MG/ML) 2ML VL IV SCH (09:54)
[2022-04-30] MEDS: SODIUM CHLOR 0.9% PF (SALINE LOCK) 10ML VIAL/SYR IV SCH ×2 (09:55→21:30)
[2022-04-30] MEDS: methylPREDNISolone SOD SUCC 40 MG/ML VL IV SCH ×2 (09:55→21:30)
[2022-04-30] MEDS: INSULIN LANTUS (GLARGINE) 1 /0.01ml (100units/ml) SC SCH ×2 (09:59→21:22)
[2022-04-30] MEDS: MIDAZOLAM DRIP 50 mg/50mL 50 ML IV SCH ×2 (12:53→23:49)
[2022-04-30 13:03] LABS: Hemoglobin 11.4 g/dL (12.2-16.2)
[2022-04-30 13:07] LABS: Hematocrit 35.4 % (36.0-46.0)
[2022-04-30 18:10] LABS: Hematocrit 35.3 % (36.0-46.0); Hemoglobin 11.3 g/dL (12.2-16.2)
[2022-04-30] MEDS: NOREPINEPHRINE 8 MG/250ML KIT 250 ML IV SCH (19:00)
[2022-04-30] MEDS: PROPOFOL 100 ML IV SCH (22:15)
[2022-05-01] VITALS (95 sets, daily range): BP systolic 78–177; BP diastolic 41–78
[2022-05-01 00:53] LABS: Hemoglobin 11.8 g/dL (12.2-16.2)
[2022-05-01 00:55] LABS: Hematocrit 36.5 % (36.0-46.0)
[2022-05-01] MEDS: hydrALAZINE HCL 20 MG/ML VL IV PRN (01:04)
[2022-05-01 01:11] LABS: BUN/Creatinine Ratio 51.5; Calcium 9.8 mg/dL (8.5-10.1); Potassium 4.9 mmol/L (3.5-5.1)
[2022-05-01] MEDS: ALBUTEROL SULF 2.5 MG/0.5ML(0.5%) NEB SOLN NEB SCH ×3 (05:38→18:21)
[2022-05-01] MEDS: IPRATROPIUM BROM 0.5 MG/2.5ML INH SOL NEB SCH ×3 (05:38→18:21)
[2022-05-01] MEDS: PIPERACILLIN-TAZOB 2.25GM 50 ML IV SCH ×3 (05:38→18:31)
[2022-05-01] MEDS: InsuLIN REG 1unit/0.01ml Soln (100units/ml) SC SCH ×3 (05:43→18:00)
[2022-05-01] MEDS: ACCU-CHEK COMFORT CURVE STRIP VI SCH ×2 (05:57→11:15)
[2022-05-01] MEDS ORDERED: LABETALOL HCL 5 MG/ML 4ML SYRINGE IV ONE (06:30)
[2022-05-01] MEDS ORDERED: SODIUM CHL 0.9% 1000 ML BAG XX ONE (07:00)
[2022-05-01] MEDS: fentaNYL Drip 2500mCg/250mlNS 250 ML IV SCH (07:20)
[2022-05-01] MEDS: methylPREDNISolone SOD SUCC 40 MG/ML VL IV SCH (10:10)
[2022-05-01] MEDS: SODIUM CHLOR 0.9% PF (SALINE LOCK) 10ML VIAL/SYR IV SCH ×2 (10:10→22:34)
[2022-05-01] MEDS: FAMOTIDINE (10MG/ML) 2ML VL IV SCH ×2 (10:10→18:25)
[2022-05-01] MEDS: INSULIN LANTUS (GLARGINE) 1 /0.01ml (100units/ml) SC SCH ×2 (10:14→21:17)
[2022-05-01] MEDS ORDERED: TPN PER PHARMACY 0 ML IV SCH (11:00)
[2022-05-01 12:01] LABS: Albumin 2.5 g/dL (3.4-5.0); Calcium 9.7 mg/dL (8.5-10.1); Magnesium 2.9 mg/dL (1.6-2.6); Potassium 4.7 mmol/L (3.5-5.1)
[2022-05-01 12:10] LABS: Bilirubin, Total 1.4 mg/dL (0.2-1.0); Phosphorus 7.6 mg/dL (2.5-4.90)
[2022-05-01 12:47] LABS: BUN/Creatinine Ratio 56.6
[2022-05-01] MEDS: MIDAZOLAM DRIP 50 mg/50mL 50 ML IV SCH (15:36)
[2022-05-01] MEDS: FUROSEMIDE 100 MG/10ML VIAL IV SCH (18:00)
[2022-05-01] MEDS ORDERED: ALBUMIN 25% 100 ML IV ONE ×2 (18:00→20:00)
[2022-05-01] MEDS: NOREPINEPHRINE 8 MG/250ML KIT 250 ML IV SCH (19:00)
[2022-05-01] MEDS ORDERED: TPN PER PHARMACY IV NR ×7 (20:00)
[2022-05-01] MEDS ORDERED: EPOETIN ALFA-EPBX 10,000 UNIT/1ML VIAL SC ONE (21:00)
[2022-05-01] MEDS: PROPOFOL 100 ML IV SCH (22:15)
[2022-05-02] VITALS (102 sets, daily range): BP systolic 86–158; BP diastolic 31–58
[2022-05-02] MEDS ORDERED: DEXTROSE (50%) 50ML SYRG IV SCH
[2022-05-02] MEDS: fentaNYL Drip 2500mCg/250mlNS 250 ML IV SCH ×2 (02:48→15:23)
[2022-05-02] MEDS: MIDAZOLAM DRIP 50 mg/50mL 50 ML IV SCH ×2 (02:49→15:04)
[2022-05-02 05:10] LABS: Basophils # (auto) 0 10 ^3/uL (0-0.2); Hemoglobin 10.4 g/dL (12.2-16.2); Lymphocytes # (auto) 0.8 10 ^3/uL (0.4-5.4); Neutrophils # (auto) 7.8 10 ^3/uL (1.6-8.6); Red Cell Distribution Width 17.1 % (11.8-14.3)
[2022-05-02 05:20] LABS: Basophils % (auto) 0.1 % (0.0-2.0); Eosinophils # (auto) 0.3 10 ^3/uL (0-0.8); Eosinophils % (auto) 3.3 % (0.0-7.0); Hematocrit 33.2 % (36.0-46.0); Mean Corpuscular Hemoglobin 30.5 pg (28.0-32.0); Mean Corpuscular Hgb Conc. 31.4 g/dL (32.0-36.0); Neutrophils % (auto) 78.6 % (37.0-80.0); Nucleated Red Blood Cells % 0.3 %; Red Blood Cells 3.42 10^6/uL (4.0-5.20)
[2022-05-02 05:28] LABS: Potassium 4.6 mmol/L (3.5-5.1)
[2022-05-02 05:33] LABS: Albumin 3.2 g/dL (3.4-5.0); BUN/Creatinine Ratio 35.5; Calcium 9.2 mg/dL (8.5-10.1); Magnesium 2.5 mg/dL (1.6-2.6)
[2022-05-02 05:36] LABS: Bilirubin, Total 1.6 mg/dL (0.2-1.0); Phosphorus 6.9 mg/dL (2.5-4.90); Total Protein 6.9 g/dL (6.4-8.2)
[2022-05-02] MEDS: FUROSEMIDE 100 MG/10ML VIAL IV SCH ×2 (06:15→17:49)
[2022-05-02] MEDS: PIPERACILLIN-TAZOB 2.25GM 50 ML IV SCH ×4 (06:16→17:49)
[2022-05-02] MEDS: ACCU-CHEK COMFORT CURVE STRIP VI SCH ×4 (06:17→17:49)
[2022-05-02] MEDS: ALBUTEROL SULF 2.5 MG/0.5ML(0.5%) NEB SOLN NEB SCH ×3 (06:33→18:24)
[2022-05-02] MEDS: IPRATROPIUM BROM 0.5 MG/2.5ML INH SOL NEB SCH ×3 (06:33→18:24)
[2022-05-02] MEDS: InsuLIN REG 1unit/0.01ml Soln (100units/ml) SC SCH ×3 (06:51→17:53)
[2022-05-02] MEDS ORDERED: SODIUM CHL 0.9% 1000 ML BAG XX ONE (07:00)
[2022-05-02] MEDS ORDERED: ALBUMIN 25% 100 ML IV ONE (10:34)
[2022-05-02] MEDS: NOREPINEPHRINE 8 MG/250ML KIT 250 ML IV SCH (10:59)
[2022-05-02] MEDS: SODIUM CHLOR 0.9% PF (SALINE LOCK) 10ML VIAL/SYR IV SCH ×2 (11:58→22:00)
[2022-05-02 15:23] LABS: Hepatitis A Ab IgM Negative; Hepatitis B Core IgM Negative
[2022-05-02 15:53] LABS: Hepatitis C Antibody Negative (Negative)
[2022-05-02] MEDS: PROPOFOL 100 ML IV SCH (18:00)
[2022-05-02] MEDS: TPN PER PHARMACY IV NR ×9 (20:19)
[2022-05-02] MEDS: INSULIN LANTUS (GLARGINE) 1 /0.01ml (100units/ml) SC SCH (22:36)
[2022-05-03] VITALS (106 sets, daily range): BP systolic 99–183; BP diastolic 41–77
[2022-05-03] MEDS: PIPERACILLIN-TAZOB 2.25GM 50 ML IV SCH ×4 (00:06→17:46)
[2022-05-03] MEDS: InsuLIN REG 1unit/0.01ml Soln (100units/ml) SC SCH ×4 (00:07→17:51)
[2022-05-03] MEDS: ACCU-CHEK COMFORT CURVE STRIP VI SCH ×4 (00:08→18:07)
[2022-05-03] MEDS: MIDAZOLAM DRIP 50 mg/50mL 50 ML IV SCH (04:53)
[2022-05-03] MEDS: ALBUTEROL SULF 2.5 MG/0.5ML(0.5%) NEB SOLN NEB SCH ×4 (05:52→23:59)
[2022-05-03] MEDS: IPRATROPIUM BROM 0.5 MG/2.5ML INH SOL NEB SCH ×4 (05:52→23:58)
[2022-05-03 06:04] LABS: Basophils # (auto) 0 10 ^3/uL (0-0.2); Basophils % (auto) 0.2 % (0.0-2.0); Eosinophils # (auto) 0.6 10 ^3/uL (0-0.8); Lymphocytes # (auto) 0.7 10 ^3/uL (0.4-5.4); Monocytes # (auto) 0.9 10 ^3/uL (0-1.3)
[2022-05-03 06:07] LABS: Eosinophils % (auto) 4.4 % (0.0-7.0); Hematocrit 35.1 % (36.0-46.0); Hemoglobin 11.2 g/dL (12.2-16.2); Lymphocytes % (auto) 5.3 % (10.0-50.0); Mean Corpuscular Hemoglobin 30.3 pg (28.0-32.0); Mean Corpuscular Volume 94.7 fL (80.0-100.0); Monocytes % (auto) 6.7 % (0.0-12.0); Neutrophils # (auto) 10.7 10 ^3/uL (1.6-8.6); Neutrophils % (auto) 83.4 % (37.0-80.0); Nucleated Red Blood Cells % 0.2 %; Red Blood Cells 3.71 10^6/uL (4.0-5.20); Red Cell Distribution Width 16.5 % (11.8-14.3); White Blood Cell 12.8 10^3/uL (4.4-10.8)
[2022-05-03] MEDS: FUROSEMIDE 100 MG/10ML VIAL IV SCH ×2 (06:19→17:48)
[2022-05-03 06:25] LABS: Calcium 8.8 mg/dL (8.5-10.1); Magnesium 2.2 mg/dL (1.6-2.6); Potassium 3.9 mmol/L (3.5-5.1)
[2022-05-03 06:29] LABS: BUN/Creatinine Ratio 28.7; Phosphorus 4.6 mg/dL (2.5-4.90); Total Protein 7.1 g/dL (6.4-8.2)
[2022-05-03] MEDS: INSULIN LANTUS (GLARGINE) 1 /0.01ml (100units/ml) SC SCH ×2 (10:12→22:08)
[2022-05-03] MEDS: FAMOTIDINE (10MG/ML) 2ML VL IV SCH (10:13)
[2022-05-03] MEDS: SODIUM CHLOR 0.9% PF (SALINE LOCK) 10ML VIAL/SYR IV SCH ×2 (10:13→22:07)
[2022-05-03] MEDS ORDERED: METOCLOPRAMIDE HCL 5MG/ml INJ 2ml VIAL IV ONE (10:45)
[2022-05-03] MEDS ORDERED: DEXTROSE (50%) 50ML SYRG IV PRN (10:45)
[2022-05-03] MEDS: LABETALOL HCL 5 MG/ML 4ML SYRINGE IV PRN (11:07)
[2022-05-03] MEDS: fentaNYL Drip 2500mCg/250mlNS 250 ML IV SCH ×2 (11:42→22:57)
[2022-05-03] MEDS ORDERED: Glucerna 1.2 Cal 1Liter BOTTLE GT SCH (12:30)
[2022-05-03] MEDS: METOCLOPRAMIDE HCL 5MG/ml INJ 2ml VIAL IV SCH ×2 (14:09→22:07)
[2022-05-03] MEDS: TPN PER PHARMACY IV NR ×9 (19:21)
[2022-05-03] MEDS ORDERED: TPN PER PHARMACY IV NR ×10 (20:00)
[2022-05-03] MEDS: PROPOFOL 100 ML IV SCH (22:15)
[2022-05-04] VITALS (101 sets, daily range): BP systolic 83–158; BP diastolic 39–76
[2022-05-04] MEDS: ACCU-CHEK COMFORT CURVE STRIP VI SCH ×4 (00:07→17:37)
[2022-05-04] MEDS: PIPERACILLIN-TAZOB 2.25GM 50 ML IV SCH ×4 (00:07→21:42)
[2022-05-04] MEDS: InsuLIN REG 1unit/0.01ml Soln (100units/ml) SC SCH ×4 (00:16→17:37)
[2022-05-04 05:03] LABS: Eosinophils # (auto) 0.7 10 ^3/uL (0-0.8); Hemoglobin 11.7 g/dL (12.2-16.2); Monocytes # (auto) 1.1 10 ^3/uL (0-1.3); Neutrophils % (auto) 79.4 % (37.0-80.0)
[2022-05-04 05:05] LABS: Basophils # (auto) 0 10 ^3/uL (0-0.2); Basophils % (auto) 0.3 % (0.0-2.0); Eosinophils % (auto) 5.6 % (0.0-7.0); Hematocrit 35.7 % (36.0-46.0); Lymphocytes # (auto) 0.7 10 ^3/uL (0.4-5.4); Lymphocytes % (auto) 5.5 % (10.0-50.0); Mean Corpuscular Hemoglobin 30.8 pg (28.0-32.0); Mean Corpuscular Hgb Conc. 32.8 g/dL (32.0-36.0); Mean Corpuscular Volume 93.8 fL (80.0-100.0); Monocytes % (auto) 9.2 % (0.0-12.0); Neutrophils # (auto) 9.5 10 ^3/uL (1.6-8.6); Nucleated Red Blood Cells % 0.2 %; Red Blood Cells 3.81 10^6/uL (4.0-5.20); Red Cell Distribution Width 16.3 % (11.8-14.3)
[2022-05-04 05:18] LABS: Albumin 2.6 g/dL (3.4-5.0); Magnesium 2.2 mg/dL (1.6-2.6); Potassium 4.1 mmol/L (3.5-5.1)
[2022-05-04 05:21] LABS: BUN/Creatinine Ratio 31.7; Bilirubin, Total 2.1 mg/dL (0.2-1.0); Phosphorus 8.3 mg/dL (2.5-4.90); Total Protein 7.1 g/dL (6.4-8.2)
[2022-05-04] MEDS: FUROSEMIDE 100 MG/10ML VIAL IV SCH ×2 (05:43→17:38)
[2022-05-04] MEDS: METOCLOPRAMIDE HCL 5MG/ml INJ 2ml VIAL IV SCH ×3 (05:44→22:45)
[2022-05-04] MEDS: IPRATROPIUM BROM 0.5 MG/2.5ML INH SOL NEB SCH ×3 (05:47→18:16)
[2022-05-04] MEDS: ALBUTEROL SULF 2.5 MG/0.5ML(0.5%) NEB SOLN NEB SCH ×3 (05:47→18:16)
[2022-05-04] MEDS ORDERED: SODIUM CHL 0.9% 1000 ML BAG XX ONE (07:00)
[2022-05-04] MEDS ORDERED: DEXTROSE (50%) 50ML SYRG IV PRN (09:45)
[2022-05-04] MEDS: INSULIN LANTUS (GLARGINE) 1 /0.01ml (100units/ml) SC SCH ×2 (09:50→22:05)
[2022-05-04] MEDS: SODIUM CHLOR 0.9% PF (SALINE LOCK) 10ML VIAL/SYR IV SCH ×2 (09:51→22:45)
[2022-05-04] MEDS: FAMOTIDINE (10MG/ML) 2ML VL IV SCH (09:51)
[2022-05-04] MEDS: ALBUMIN 25% 100 ML IV SCH ×2 (11:00→12:00)
[2022-05-04] MEDS: fentaNYL Drip 2500mCg/250mlNS 250 ML IV SCH (13:43)
[2022-05-04] MEDS: FLUCONAZOLE 200MG/100ML 100 ML IV SCH (14:39)
[2022-05-04] MEDS ORDERED: TPN PER PHARMACY IV NR ×10 (20:00)
[2022-05-04] MEDS ORDERED: EPOETIN ALFA-EPBX 10,000 UNIT/1ML VIAL SC ONE (21:00)
[2022-05-04] MEDS: MIDAZOLAM DRIP 50 mg/50mL 50 ML IV SCH (22:15)
[2022-05-04] MEDS: PROPOFOL 100 ML IV SCH (22:15)
[2022-05-05] VITALS (102 sets, daily range): BP systolic 105–184; BP diastolic 44–67
[2022-05-05] MEDS: PIPERACILLIN-TAZOB 2.25GM 50 ML IV SCH ×4 (00:28→18:11)
[2022-05-05] MEDS: ACCU-CHEK COMFORT CURVE STRIP VI SCH ×4 (00:29→18:00)
[2022-05-05] MEDS: InsuLIN REG 1unit/0.01ml Soln (100units/ml) SC SCH ×4 (00:34→18:00)
[2022-05-05] MEDS: fentaNYL Drip 2500mCg/250mlNS 250 ML IV SCH (05:11)
[2022-05-05 05:20] LABS: Albumin 2.7 g/dL (3.4-5.0); BUN/Creatinine Ratio 26.5; Magnesium 2.2 mg/dL (1.6-2.6); Potassium 3.8 mmol/L (3.5-5.1)
[2022-05-05 05:26] LABS: Bilirubin, Total 1.8 mg/dL (0.2-1.0); Phosphorus 5.4 mg/dL (2.5-4.90); Total Protein 6.2 g/dL (6.4-8.2)
[2022-05-05] MEDS: FUROSEMIDE 100 MG/10ML VIAL IV SCH ×2 (05:49→18:12)
[2022-05-05] MEDS: METOCLOPRAMIDE HCL 5MG/ml INJ 2ml VIAL IV SCH ×3 (05:49→21:30)
[2022-05-05] MEDS: ALBUTEROL SULF 2.5 MG/0.5ML(0.5%) NEB SOLN NEB SCH ×3 (06:16→19:43)
[2022-05-05] MEDS: IPRATROPIUM BROM 0.5 MG/2.5ML INH SOL NEB SCH ×3 (06:16→19:43)
[2022-05-05 06:57] LABS: Hemoglobin 9.5 g/dL (12.2-16.2); White Blood Cell 4.6 10^3/uL (4.4-10.8)
[2022-05-05 06:59] LABS: Hematocrit 28.9 % (36.0-46.0); Red Blood Cells 3.08 10^6/uL (4.0-5.20); Red Cell Distribution Width 16.4 % (11.8-14.3)
[2022-05-05 07:04] LABS: Basophils % (manual) 0 (0.0-2.0); Blast Cells 0; Metamyelocytes % 0; Myelocytes % 0; Promyelocytes % 0; Reactive Lymphocytes 0
[2022-05-05 07:31] LABS: Band Neutrophils % (manual) 3; Eosinophils % (manual) 4 (0-7); Lymphocytes % (manual) 12 (10.0-50.0); Monocytes % (manual) 16 (0-12)
[2022-05-05] MEDS: INSULIN LANTUS (GLARGINE) 1 /0.01ml (100units/ml) SC SCH ×2 (10:00→21:38)
[2022-05-05] MEDS: FAMOTIDINE (10MG/ML) 2ML VL IV SCH (10:03)
[2022-05-05] MEDS: FLUCONAZOLE 200MG/100ML 100 ML IV SCH (10:03)
[2022-05-05] MEDS: SODIUM CHLOR 0.9% PF (SALINE LOCK) 10ML VIAL/SYR IV SCH ×2 (10:03→21:30)
[2022-05-05] MEDS: LABETALOL HCL 5 MG/ML 4ML SYRINGE IV PRN ×3 (14:50→15:56)
[2022-05-05] MEDS: PROPOFOL 100 ML IV SCH (22:15)
[2022-05-05] MEDS: MIDAZOLAM DRIP 50 mg/50mL 50 ML IV SCH (22:15)
[2022-05-06] VITALS (101 sets, daily range): BP systolic 107–182; BP diastolic 45–80
[2022-05-06] MEDS: PIPERACILLIN-TAZOB 2.25GM 50 ML IV SCH ×4 (00:32→17:26)
[2022-05-06 04:51] LABS: White Blood Cell 4.2 10^3/uL (4.4-10.8)
[2022-05-06 04:54] LABS: Hematocrit 30.7 % (36.0-46.0); Mean Corpuscular Hemoglobin 30.6 pg (28.0-32.0); Mean Corpuscular Hgb Conc. 32.7 g/dL (32.0-36.0); Mean Corpuscular Volume 93.6 fL (80.0-100.0); Red Blood Cells 3.28 10^6/uL (4.0-5.20)
[2022-05-06 05:00] LABS: Basophils % (manual) 0 (0.0-2.0); Blast Cells 0; Metamyelocytes % 0; Myelocytes % 0; Promyelocytes % 0; Reactive Lymphocytes 0
[2022-05-06 05:03] LABS: Calcium 8.9 mg/dL (8.5-10.1)
[2022-05-06 05:04] LABS: BUN/Creatinine Ratio 29.6
[2022-05-06] MEDS ORDERED: HEPARIN SODIUM (PORCINE) 5000 UNITS/ML 1ML VIAL ONE (05:14)
[2022-05-06] MEDS: ACCU-CHEK COMFORT CURVE STRIP VI SCH ×4 (06:00→17:27)
[2022-05-06] MEDS: InsuLIN REG 1unit/0.01ml Soln (100units/ml) SC SCH ×4 (06:00→17:27)
[2022-05-06] MEDS: IPRATROPIUM BROM 0.5 MG/2.5ML INH SOL NEB SCH ×3 (06:28→18:36)
[2022-05-06] MEDS: ALBUTEROL SULF 2.5 MG/0.5ML(0.5%) NEB SOLN NEB SCH ×3 (06:28→18:36)
[2022-05-06] MEDS: METOCLOPRAMIDE HCL 5MG/ml INJ 2ml VIAL IV SCH ×3 (06:36→22:48)
[2022-05-06] MEDS: FUROSEMIDE 100 MG/10ML VIAL IV SCH (06:36)
[2022-05-06 07:11] LABS: Band Neutrophils % (manual) 2; Eosinophils % (manual) 1 (0-7); Lymphocytes % (manual) 19 (10.0-50.0); Monocytes % (manual) 4 (0-12)
[2022-05-06] MEDS: FAMOTIDINE (10MG/ML) 2ML VL IV SCH (09:26)
[2022-05-06] MEDS: FLUCONAZOLE 200MG/100ML 100 ML IV SCH (09:27)
[2022-05-06] MEDS: INSULIN LANTUS (GLARGINE) 1 /0.01ml (100units/ml) SC SCH (10:00)
[2022-05-06] MEDS: LABETALOL HCL 5 MG/ML 4ML SYRINGE IV PRN ×2 (10:27→17:21)
[2022-05-06] MEDS: SODIUM CHLOR 0.9% PF (SALINE LOCK) 10ML VIAL/SYR IV SCH ×2 (10:29→22:00)
[2022-05-06] MEDS: BUMETANIDE INJECTION 12.5 MG in GIVE UN-DILUTED 0 ML IV SCH (14:51)
[2022-05-06] MEDS: fentaNYL Drip 2500mCg/250mlNS 250 ML IV SCH (22:15)
[2022-05-06] MEDS: PROPOFOL 100 ML IV SCH (22:15)
[2022-05-06] MEDS: MIDAZOLAM DRIP 50 mg/50mL 50 ML IV SCH (22:15)
[2022-05-07] VITALS (105 sets, daily range): BP systolic 133–183; BP diastolic 56–79
[2022-05-07] MEDS: LABETALOL HCL 5 MG/ML 4ML SYRINGE IV PRN ×3 (03:34→23:13)
[2022-05-07 04:54] LABS: Basophils # (auto) 0.1 10 ^3/uL (0-0.2); Eosinophils # (auto) 0.3 10 ^3/uL (0-0.8); Monocytes # (auto) 0.7 10 ^3/uL (0-1.3); Nucleated Red Blood Cells % 0.1 %
[2022-05-07 04:55] LABS: Eosinophils % (auto) 5.1 % (0.0-7.0); Hematocrit 32.5 % (36.0-46.0); Hemoglobin 10.7 g/dL (12.2-16.2); Lymphocytes # (auto) 0.7 10 ^3/uL (0.4-5.4); Lymphocytes % (auto) 10.5 % (10.0-50.0); Mean Corpuscular Hemoglobin 30.5 pg (28.0-32.0); Mean Corpuscular Volume 92.5 fL (80.0-100.0); Neutrophils # (auto) 4.5 10 ^3/uL (1.6-8.6); Neutrophils % (auto) 72.4 % (37.0-80.0); Red Blood Cells 3.52 10^6/uL (4.0-5.20); Red Cell Distribution Width 16.8 % (11.8-14.3); White Blood Cell 6.2 10^3/uL (4.4-10.8)
[2022-05-07 05:15] LABS: Potassium 3.4 mmol/L (3.5-5.1)
[2022-05-07 05:22] LABS: BUN/Creatinine Ratio 29.6; Calcium 8.8 mg/dL (8.5-10.1)
[2022-05-07] MEDS: PIPERACILLIN-TAZOB 2.25GM 50 ML IV SCH ×3 (06:00→12:40)
[2022-05-07] MEDS: InsuLIN REG 1unit/0.01ml Soln (100units/ml) SC SCH ×4 (06:00→17:18)
[2022-05-07] MEDS: ACCU-CHEK COMFORT CURVE STRIP VI SCH ×4 (06:00→18:00)
[2022-05-07] MEDS: METOCLOPRAMIDE HCL 5MG/ml INJ 2ml VIAL IV SCH ×3 (06:00→22:00)
[2022-05-07] MEDS: IPRATROPIUM BROM 0.5 MG/2.5ML INH SOL NEB SCH ×3 (06:21→18:39)
[2022-05-07] MEDS: ALBUTEROL SULF 2.5 MG/0.5ML(0.5%) NEB SOLN NEB SCH ×3 (06:21→18:39)
[2022-05-07] MEDS: BUMETANIDE INJECTION 12.5 MG in GIVE UN-DILUTED 0 ML IV SCH (08:19)
[2022-05-07] MEDS: FAMOTIDINE (10MG/ML) 2ML VL IV SCH (09:35)
[2022-05-07] MEDS: POTASSIUM CHL 20MEQ/100ML 100 ML IV SCH ×2 (09:36→12:39)
[2022-05-07] MEDS: FLUCONAZOLE 200MG/100ML 100 ML IV SCH (09:36)
[2022-05-07] MEDS: SODIUM CHLOR 0.9% PF (SALINE LOCK) 10ML VIAL/SYR IV SCH ×2 (09:39→22:00)
[2022-05-07] MEDS ORDERED: levoFLOXacin 500MG 100 ML IV ONE (13:30)
[2022-05-07] MEDS: ceFAZolin 1GM/50ML 50 ML IV SCH ×2 (15:53→22:30)
[2022-05-07] MEDS: PROPOFOL 100 ML IV SCH (22:15)
[2022-05-07] MEDS: MIDAZOLAM DRIP 50 mg/50mL 50 ML IV SCH (22:15)
[2022-05-07] MEDS: fentaNYL Drip 2500mCg/250mlNS 250 ML IV SCH (22:15)
[2022-05-08] VITALS (105 sets, daily range): BP systolic 113–175; BP diastolic 52–84
[2022-05-08] MEDS: IPRATROPIUM BROM 0.5 MG/2.5ML INH SOL NEB SCH ×3 (05:48→18:13)
[2022-05-08] MEDS: ALBUTEROL SULF 2.5 MG/0.5ML(0.5%) NEB SOLN NEB SCH ×3 (05:48→18:13)
[2022-05-08] MEDS: ACCU-CHEK COMFORT CURVE STRIP VI SCH ×4 (06:00→18:03)
[2022-05-08] MEDS: METOCLOPRAMIDE HCL 5MG/ml INJ 2ml VIAL IV SCH ×3 (06:00→20:48)
[2022-05-08] MEDS: InsuLIN REG 1unit/0.01ml Soln (100units/ml) SC SCH ×4 (06:00→18:01)
[2022-05-08] MEDS: BUMETANIDE INJECTION 12.5 MG in GIVE UN-DILUTED 0 ML IV SCH (08:12)
[2022-05-08 08:29] LABS: BUN/Creatinine Ratio 31.5; Calcium 9.7 mg/dL (8.5-10.1); Potassium 3.6 mmol/L (3.5-5.1)
[2022-05-08 08:34] LABS: Basophils # (auto) 0.1 10 ^3/uL (0-0.2); Basophils % (auto) 0.8 % (0.0-2.0); Eosinophils # (auto) 0.2 10 ^3/uL (0-0.8); Eosinophils % (auto) 1.9 % (0.0-7.0); Hemoglobin 10.9 g/dL (12.2-16.2); Lymphocytes # (auto) 0.7 10 ^3/uL (0.4-5.4); Lymphocytes % (auto) 6.7 % (10.0-50.0); Mean Corpuscular Hgb Conc. 33.2 g/dL (32.0-36.0); Mean Corpuscular Volume 93.4 fL (80.0-100.0); Monocytes # (auto) 0.9 10 ^3/uL (0-1.3); Monocytes % (auto) 8.5 % (0.0-12.0); Neutrophils # (auto) 8.7 10 ^3/uL (1.6-8.6); Neutrophils % (auto) 82.1 % (37.0-80.0); Nucleated Red Blood Cells % 0.1 %; Red Blood Cells 3.53 10^6/uL (4.0-5.20); Red Cell Distribution Width 17.5 % (11.8-14.3); White Blood Cell 10.6 10^3/uL (4.4-10.8)
[2022-05-08] MEDS: FLUCONAZOLE 200MG/100ML 100 ML IV SCH (08:35)
[2022-05-08] MEDS: ceFAZolin 1GM/50ML 50 ML IV SCH (09:41)
[2022-05-08] MEDS ORDERED: levoFLOXacin 250MG 50 ML IV SCH (10:00)
[2022-05-08] MEDS: SODIUM CHLOR 0.9% PF (SALINE LOCK) 10ML VIAL/SYR IV SCH ×2 (10:00→20:50)
[2022-05-08] MEDS: FAMOTIDINE (10MG/ML) 2ML VL IV SCH (10:41)
[2022-05-08] MEDS ORDERED: diphenhdrAMINE HCL 50 MG/1 ML VL IV ONE (12:00)
[2022-05-08] MEDS: DOXYCYCLINE 100MG/250ML 250 ML IV SCH (12:43)
[2022-05-08] MEDS: LABETALOL HCL 5 MG/ML 4ML SYRINGE IV PRN (14:39)
[2022-05-08] MEDS: fentaNYL Drip 2500mCg/250mlNS 250 ML IV SCH (20:48)
[2022-05-08] MEDS: MIDAZOLAM DRIP 50 mg/50mL 50 ML IV SCH (20:49)
[2022-05-08] MEDS: PROPOFOL 100 ML IV SCH (20:49)
[2022-05-09] VITALS (71 sets, daily range): BP systolic 90–164; BP diastolic 39–70
[2022-05-09] MEDS: DOXYCYCLINE 100MG/250ML 250 ML IV SCH ×3 (01:42→23:25)
[2022-05-09] MEDS: InsuLIN REG 1unit/0.01ml Soln (100units/ml) SC SCH ×4 (01:43→18:00)
[2022-05-09 05:17] LABS: Basophils # (auto) 0.2 10 ^3/uL (0-0.2); Basophils % (auto) 1.3 % (0.0-2.0); Eosinophils # (auto) 0.3 10 ^3/uL (0-0.8); Hematocrit 30.9 % (36.0-46.0); Hemoglobin 10.1 g/dL (12.2-16.2); Lymphocytes # (auto) 1.2 10 ^3/uL (0.4-5.4); Lymphocytes % (auto) 9.3 % (10.0-50.0); Mean Corpuscular Hemoglobin 30.7 pg (28.0-32.0); Mean Corpuscular Hgb Conc. 32.7 g/dL (32.0-36.0); Mean Corpuscular Volume 94.1 fL (80.0-100.0); Monocytes % (auto) 7.3 % (0.0-12.0); Neutrophils # (auto) 10.6 10 ^3/uL (1.6-8.6); Neutrophils % (auto) 80.1 % (37.0-80.0); Nucleated Red Blood Cells % 0.2 %; Red Blood Cells 3.28 10^6/uL (4.0-5.20); Red Cell Distribution Width 17.6 % (11.8-14.3); White Blood Cell 13.2 10^3/uL (4.4-10.8)
[2022-05-09 05:40] LABS: Calcium 9.2 mg/dL (8.5-10.1); Potassium 3.3 mmol/L (3.5-5.1)
[2022-05-09] MEDS: METOCLOPRAMIDE HCL 5MG/ml INJ 2ml VIAL IV SCH (06:00)
[2022-05-09] MEDS: ACCU-CHEK COMFORT CURVE STRIP VI SCH ×4 (06:00→18:00)
[2022-05-09] MEDS: IPRATROPIUM BROM 0.5 MG/2.5ML INH SOL NEB SCH ×3 (06:10→18:29)
[2022-05-09] MEDS: ALBUTEROL SULF 2.5 MG/0.5ML(0.5%) NEB SOLN NEB SCH ×3 (06:10→18:29)
[2022-05-09] MEDS ORDERED: BENZOCAINE (DENTAL) 20 % SPRAY 60ML MT ONE (08:50)
[2022-05-09] MEDS ORDERED: SODIUM CHLORIDE LOCK 0 ML ONE (08:50)
[2022-05-09] MEDS ORDERED: EPINEPHrine HCL 1 MG/1 ML AMP ONE (08:51)
[2022-05-09] MEDS ORDERED: MIDAZOLAM HCL 5 MG/ML-1ML VIAL ONE (08:51)
[2022-05-09] MEDS ORDERED: GLYCOPYRROLATE 0.2 MG/ML 1ML VIAL ONE (08:51)
[2022-05-09] MEDS ORDERED: LIDOCAINE HCL 2% TOP JELLY 5ML TOP ONE (08:51)
[2022-05-09] MEDS ORDERED: fentaNYL CITRATE 100 MCG/2 ML VL ONE (08:52)
[2022-05-09] MEDS ORDERED: SODIUM CHL 0.9% 1000 ML BAG XX ONE (10:00)
[2022-05-09] MEDS: SODIUM CHLOR 0.9% PF (SALINE LOCK) 10ML VIAL/SYR IV SCH ×2 (10:10→22:00)
[2022-05-09] MEDS: FAMOTIDINE (10MG/ML) 2ML VL IV SCH (10:25)
[2022-05-09] MEDS: FLUCONAZOLE 200MG/100ML 100 ML IV SCH (10:25)
[2022-05-09] MEDS ORDERED: ALBUMIN 25% 100 ML IV ONE (10:30)
[2022-05-09] MEDS: ALBUMIN 25% 100 ML IV SCH ×2 (13:00→22:34)
[2022-05-09] MEDS ORDERED: NOREPINEPHRINE 8 MG/250ML KIT 250 ML IV PRN (13:30)
[2022-05-09] MEDS ORDERED: EPOETIN ALFA-EPBX 10,000 UNIT/1ML VIAL SC ONE (21:00)
[2022-05-09] MEDS: fentaNYL Drip 2500mCg/250mlNS 250 ML IV SCH (22:15)
[2022-05-09] MEDS: PROPOFOL 100 ML IV SCH (22:15)
[2022-05-09] MEDS: MIDAZOLAM DRIP 50 mg/50mL 50 ML IV SCH (22:15)
[2022-05-10] VITALS (61 sets, daily range): BP systolic 102–143; BP diastolic 39–56
[2022-05-10] MEDS: ACCU-CHEK COMFORT CURVE STRIP VI SCH ×4 (01:14→17:40)
[2022-05-10] MEDS: InsuLIN REG 1unit/0.01ml Soln (100units/ml) SC SCH ×4 (01:14→17:41)
[2022-05-10 05:48] LABS: Basophils # (auto) 0.1 10 ^3/uL (0-0.2); Basophils % (auto) 0.6 % (0.0-2.0); Eosinophils # (auto) 0.3 10 ^3/uL (0-0.8); Hemoglobin 9.9 g/dL (12.2-16.2); Lymphocytes # (auto) 1.1 10 ^3/uL (0.4-5.4); Lymphocytes % (auto) 10.4 % (10.0-50.0); Monocytes # (auto) 0.9 10 ^3/uL (0-1.3); Red Cell Distribution Width 17.3 % (11.8-14.3)
[2022-05-10 05:50] LABS: Eosinophils % (auto) 3.1 % (0.0-7.0); Hematocrit 29.5 % (36.0-46.0); Mean Corpuscular Hemoglobin 31.5 pg (28.0-32.0); Mean Corpuscular Hgb Conc. 33.6 g/dL (32.0-36.0); Mean Corpuscular Volume 93.6 fL (80.0-100.0); Monocytes % (auto) 8.6 % (0.0-12.0); Neutrophils # (auto) 8.1 10 ^3/uL (1.6-8.6); Neutrophils % (auto) 77.3 % (37.0-80.0); Nucleated Red Blood Cells % 0.1 %; Red Blood Cells 3.15 10^6/uL (4.0-5.20); White Blood Cell 10.5 10^3/uL (4.4-10.8)
[2022-05-10] MEDS: IPRATROPIUM BROM 0.5 MG/2.5ML INH SOL NEB SCH ×3 (05:58→18:02)
[2022-05-10] MEDS: ALBUTEROL SULF 2.5 MG/0.5ML(0.5%) NEB SOLN NEB SCH ×3 (05:58→18:02)
[2022-05-10 06:01] LABS: Albumin 3.2 g/dL (3.4-5.0); Calcium 9.8 mg/dL (8.5-10.1); Potassium 3.5 mmol/L (3.5-5.1)
[2022-05-10 06:04] LABS: BUN/Creatinine Ratio 19.7; Bilirubin, Total 1.9 mg/dL (0.2-1.0); Total Protein 8.6 g/dL (6.4-8.2)
[2022-05-10] MEDS: SODIUM CHLOR 0.9% PF (SALINE LOCK) 10ML VIAL/SYR IV SCH ×2 (09:43→21:28)
[2022-05-10] MEDS: FAMOTIDINE (10MG/ML) 2ML VL IV SCH (09:43)
[2022-05-10] MEDS: FLUCONAZOLE 200MG/100ML 100 ML IV SCH (09:43)
[2022-05-10] MEDS: DOXYCYCLINE 100MG/250ML 250 ML IV SCH (11:45)
[2022-05-10 15:08] LABS: Urine Bacteria NONE SEEN /hpf (None Seen); Urine Blood 2+ /uL (Negative); Urine Specific Gravity 1.024 (1.001-1.035); Urine WBC 1534 /hpf (0 - 5); Urine WBC Clumps PRESENT /hpf (None Seen)
[2022-05-10] MEDS: Vital AF 1.2 Cal 1 liter bottle GT SCH (15:30)
[2022-05-10] MEDS: PROPOFOL 100 ML IV SCH (22:15)
[2022-05-10] MEDS: MIDAZOLAM DRIP 50 mg/50mL 50 ML IV SCH (22:15)
[2022-05-10] MEDS: fentaNYL Drip 2500mCg/250mlNS 250 ML IV SCH (22:49)
[2022-05-11] VITALS (88 sets, daily range): BP systolic 101–150; BP diastolic 35–69
[2022-05-11] MEDS: DOXYCYCLINE 100MG/250ML 250 ML IV SCH ×3 (00:16→22:50)
[2022-05-11] MEDS: ACCU-CHEK COMFORT CURVE STRIP VI SCH ×5 (00:16→22:54)
[2022-05-11] MEDS: InsuLIN REG 1unit/0.01ml Soln (100units/ml) SC SCH ×5 (00:17→22:54)
[2022-05-11 05:11] LABS: Basophils # (auto) 0.1 10 ^3/uL (0-0.2); Eosinophils # (auto) 0.4 10 ^3/uL (0-0.8); Lymphocytes # (auto) 1.2 10 ^3/uL (0.4-5.4); Monocytes # (auto) 0.6 10 ^3/uL (0-1.3); Nucleated Red Blood Cells % 0.1 %; White Blood Cell 8.3 10^3/uL (4.4-10.8)
[2022-05-11 05:14] LABS: Basophils % (auto) 0.8 % (0.0-2.0); Eosinophils % (auto) 4.6 % (0.0-7.0); Hematocrit 30.3 % (36.0-46.0); Mean Corpuscular Hemoglobin 30.8 pg (28.0-32.0); Mean Corpuscular Hgb Conc. 33.1 g/dL (32.0-36.0); Mean Corpuscular Volume 93.2 fL (80.0-100.0); Neutrophils # (auto) 6.1 10 ^3/uL (1.6-8.6); Neutrophils % (auto) 73.6 % (37.0-80.0); Red Blood Cells 3.25 10^6/uL (4.0-5.20); Red Cell Distribution Width 16.9 % (11.8-14.3)
[2022-05-11 05:22] LABS: BUN/Creatinine Ratio 22.3; Calcium 9.5 mg/dL (8.5-10.1); Potassium 3.6 mmol/L (3.5-5.1)
[2022-05-11] MEDS: IPRATROPIUM BROM 0.5 MG/2.5ML INH SOL NEB SCH ×3 (05:52→18:36)
[2022-05-11] MEDS: ALBUTEROL SULF 2.5 MG/0.5ML(0.5%) NEB SOLN NEB SCH ×3 (05:52→18:36)
[2022-05-11] MEDS: FLUCONAZOLE 200MG/100ML 100 ML IV SCH (09:40)
[2022-05-11] MEDS: FAMOTIDINE (10MG/ML) 2ML VL IV SCH (09:40)
[2022-05-11] MEDS: SODIUM CHLOR 0.9% PF (SALINE LOCK) 10ML VIAL/SYR IV SCH ×2 (09:41→20:39)
[2022-05-11] MEDS ORDERED: LOPERAMIDE 1 mg/7.5ml ORAL soln PO PRN (10:45)
[2022-05-11 13:47] LABS: INR 1.3 (0.9-1.15); Partial Thromboplastin Time 35.8 sec (24.6-33.4)
[2022-05-12] VITALS (84 sets, daily range): BP systolic 84–164; BP diastolic 38–65
[2022-05-12] MEDS: InsuLIN REG 1unit/0.01ml Soln (100units/ml) SC SCH ×3 (05:06→18:37)
[2022-05-12] MEDS: ACCU-CHEK COMFORT CURVE STRIP VI SCH ×3 (06:14→18:36)
[2022-05-12] MEDS ORDERED: SODIUM CHL 0.9% 1000 ML BAG XX ONE (07:00)
[2022-05-12] MEDS: LIDOCAINE 1%HCL (LOCAL ANESTH) 10 ML MDV ONE ×2 (07:08→08:43)
[2022-05-12] MEDS: EPINEPHrine HCL 1 MG/1 ML AMP ONE ×2 (07:08→08:43)
[2022-05-12] MEDS ORDERED: ceFAZolin 1GM/50ML 100 ML IV ONE (07:10)
[2022-05-12] MEDS ORDERED: fentaNYL CITRATE 100 MCG/2 ML VL ONE (07:58)
[2022-05-12] MEDS ORDERED: MIDAZOLAM HCL 2MG/2ML 2ml VIAL (1mg/ml) ONE (07:58)
[2022-05-12] MEDS ORDERED: PROPOFOL 10 MG/ML 20 ML IV ONE (07:58)
[2022-05-12] MEDS ORDERED: ROCURONIUM 10MG/ML 10ML VIAL IV ONE (07:58)
[2022-05-12] MEDS ORDERED: PHENYLEPHRINE HCL 10 MG/ML VL ONE (07:58)
[2022-05-12 10:20] LABS: Basophils # (auto) 0.1 10 ^3/uL (0-0.2); Basophils % (auto) 0.6 % (0.0-2.0); Eosinophils # (auto) 0.5 10 ^3/uL (0-0.8); Eosinophils % (auto) 6.2 % (0.0-7.0); Hematocrit 31.4 % (36.0-46.0); Hemoglobin 10.4 g/dL (12.2-16.2); Lymphocytes # (auto) 1.1 10 ^3/uL (0.4-5.4); Lymphocytes % (auto) 13.9 % (10.0-50.0); Mean Corpuscular Hemoglobin 31.2 pg (28.0-32.0); Mean Corpuscular Hgb Conc. 32.9 g/dL (32.0-36.0); Mean Corpuscular Volume 94.6 fL (80.0-100.0); Monocytes # (auto) 0.7 10 ^3/uL (0-1.3); Monocytes % (auto) 8.5 % (0.0-12.0); Neutrophils # (auto) 5.7 10 ^3/uL (1.6-8.6); Neutrophils % (auto) 70.8 % (37.0-80.0); Nucleated Red Blood Cells % 0.1 %; Red Blood Cells 3.32 10^6/uL (4.0-5.20); Red Cell Distribution Width 16.7 % (11.8-14.3); White Blood Cell 8.1 10^3/uL (4.4-10.8)
[2022-05-12] MEDS: FAMOTIDINE (10MG/ML) 2ML VL IV SCH (10:24)
[2022-05-12] MEDS: FLUCONAZOLE 200MG/100ML 100 ML IV SCH (10:25)
[2022-05-12 10:32] LABS: BUN/Creatinine Ratio 28.8; Calcium 9.4 mg/dL (8.5-10.1); Potassium 3.7 mmol/L (3.5-5.1)
[2022-05-12] MEDS: SODIUM CHLOR 0.9% PF (SALINE LOCK) 10ML VIAL/SYR IV SCH ×2 (10:47→22:33)
[2022-05-12 10:54] LABS: INR 1.22 (0.9-1.15); Partial Thromboplastin Time 36.2 sec (24.6-33.4)
[2022-05-12] MEDS: DOXYCYCLINE 100MG/250ML 250 ML IV SCH (11:41)
[2022-05-12 16:48] LABS: Basophils # (auto) 0 10 ^3/uL (0-0.2); Basophils % (auto) 0.6 % (0.0-2.0); Eosinophils # (auto) 0.1 10 ^3/uL (0-0.8); Eosinophils % (auto) 3.8 % (0.0-7.0); Hemoglobin 10.3 g/dL (12.2-16.2); Lymphocytes # (auto) 0.8 10 ^3/uL (0.4-5.4); Lymphocytes % (auto) 26.9 % (10.0-50.0); Mean Corpuscular Hemoglobin 30.2 pg (28.0-32.0); Mean Corpuscular Hgb Conc. 32.1 g/dL (32.0-36.0); Mean Corpuscular Volume 93.9 fL (80.0-100.0); Monocytes # (auto) 0 10 ^3/uL (0-1.3); Monocytes % (auto) 0.7 % (0.0-12.0); Nucleated Red Blood Cells % 0.2 %; Red Blood Cells 3.41 10^6/uL (4.0-5.20); Red Cell Distribution Width 17.3 % (11.8-14.3)
[2022-05-12] MEDS: IPRATROPIUM BROM 0.5 MG/2.5ML INH SOL NEB SCH (18:19)
[2022-05-12] MEDS: ALBUTEROL SULF 2.5 MG/0.5ML(0.5%) NEB SOLN NEB SCH (18:19)
[2022-05-12] MEDS ORDERED: EPOETIN ALFA-EPBX 10,000 UNIT/1ML VIAL SC ONE (21:00)
[2022-05-13] VITALS (99 sets, daily range): BP systolic 100–141; BP diastolic 38–62
[2022-05-13] MEDS: ACCU-CHEK COMFORT CURVE STRIP VI SCH ×4 (00:41→18:07)
[2022-05-13] MEDS: InsuLIN REG 1unit/0.01ml Soln (100units/ml) SC SCH ×4 (01:02→18:11)
[2022-05-13] MEDS: fentaNYL Drip 2500mCg/250mlNS 250 ML IV SCH ×2 (04:44→22:15)
[2022-05-13 05:14] LABS: Basophils # (auto) 0.1 10 ^3/uL (0-0.2); Eosinophils # (auto) 0.5 10 ^3/uL (0-0.8); Eosinophils % (auto) 5.9 % (0.0-7.0); Hemoglobin 10.2 g/dL (12.2-16.2); Nucleated Red Blood Cells % 0.1 %
[2022-05-13 05:16] LABS: Hematocrit 31.5 % (36.0-46.0); Lymphocytes # (auto) 1.6 10 ^3/uL (0.4-5.4); Lymphocytes % (auto) 19.4 % (10.0-50.0); Mean Corpuscular Hemoglobin 30.6 pg (28.0-32.0); Mean Corpuscular Hgb Conc. 32.3 g/dL (32.0-36.0); Mean Corpuscular Volume 94.5 fL (80.0-100.0); Monocytes % (auto) 11.5 % (0.0-12.0); Neutrophils # (auto) 5.3 10 ^3/uL (1.6-8.6); Neutrophils % (auto) 62.2 % (37.0-80.0); Red Blood Cells 3.34 10^6/uL (4.0-5.20); Red Cell Distribution Width 17.1 % (11.8-14.3); White Blood Cell 8.4 10^3/uL (4.4-10.8)
[2022-05-13 05:34] LABS: Potassium 3.9 mmol/L (3.5-5.1)
[2022-05-13 05:40] LABS: Albumin 2.8 g/dL (3.4-5.0); BUN/Creatinine Ratio 21.3; Calcium 8.9 mg/dL (8.5-10.1)
[2022-05-13 05:43] LABS: Bilirubin, Total 1.4 mg/dL (0.2-1.0); Total Protein 8.2 g/dL (6.4-8.2)
[2022-05-13] MEDS: ALBUTEROL SULF 2.5 MG/0.5ML(0.5%) NEB SOLN NEB SCH ×3 (06:20→18:24)
[2022-05-13] MEDS: IPRATROPIUM BROM 0.5 MG/2.5ML INH SOL NEB SCH ×3 (06:20→18:25)
[2022-05-13] MEDS: PROPOFOL 100 ML IV SCH (07:43)
[2022-05-13] MEDS: MIDAZOLAM DRIP 50 mg/50mL 50 ML IV SCH (07:43)
[2022-05-13] MEDS: FLUCONAZOLE 200MG/100ML 100 ML IV SCH (10:51)
[2022-05-13] MEDS: FAMOTIDINE (10MG/ML) 2ML VL IV SCH (10:51)
[2022-05-13] MEDS: DOXYCYCLINE 100MG/250ML 250 ML IV SCH ×3 (10:51→23:44)
[2022-05-13] MEDS: SODIUM CHLOR 0.9% PF (SALINE LOCK) 10ML VIAL/SYR IV SCH ×2 (10:51→22:00)
[2022-05-13] MEDS ORDERED: ENOXAPARIN SOD 40 MG/0.4 ML SYRINGE SC ONE (15:15)
[2022-05-13] MEDS ORDERED: ENOXAPARIN SOD 30 MG/0.3 ML SYRINGE SC SCH (16:00)
[2022-05-14] VITALS (102 sets, daily range): BP systolic 98–148; BP diastolic 38–66
[2022-05-14] MEDS: InsuLIN REG 1unit/0.01ml Soln (100units/ml) SC SCH ×4 (01:05→18:00)
[2022-05-14] MEDS: fentaNYL Drip 2500mCg/250mlNS 250 ML IV SCH ×2 (01:50→20:01)
[2022-05-14] MEDS: IPRATROPIUM BROM 0.5 MG/2.5ML INH SOL NEB SCH ×3 (06:00→18:04)
[2022-05-14] MEDS: ACCU-CHEK COMFORT CURVE STRIP VI SCH ×4 (06:00→18:00)
[2022-05-14] MEDS: ALBUTEROL SULF 2.5 MG/0.5ML(0.5%) NEB SOLN NEB SCH ×3 (06:00→18:04)
[2022-05-14 08:07] LABS: Basophils # (auto) 0 10 ^3/uL (0-0.2); Eosinophils # (auto) 0.4 10 ^3/uL (0-0.8); Lymphocytes # (auto) 1.1 10 ^3/uL (0.4-5.4); Monocytes # (auto) 0.6 10 ^3/uL (0-1.3); Neutrophils # (auto) 3.5 10 ^3/uL (1.6-8.6); White Blood Cell 5.6 10^3/uL (4.4-10.8)
[2022-05-14 08:13] LABS: Basophils % (auto) 0.7 % (0.0-2.0); Eosinophils % (auto) 7.1 % (0.0-7.0); Hemoglobin 8.9 g/dL (12.2-16.2); Lymphocytes % (auto) 19.2 % (10.0-50.0); Mean Corpuscular Hemoglobin 30.4 pg (28.0-32.0); Mean Corpuscular Volume 95.3 fL (80.0-100.0); Nucleated Red Blood Cells % 0.2 %; Red Blood Cells 2.94 10^6/uL (4.0-5.20); Red Cell Distribution Width 18.2 % (11.8-14.3)
[2022-05-14 09:03] LABS: Albumin 2.3 g/dL (3.4-5.0); Calcium 8.8 mg/dL (8.5-10.1); Potassium 3.7 mmol/L (3.5-5.1)
[2022-05-14 09:08] LABS: BUN/Creatinine Ratio 25.6; Total Protein 7.8 g/dL (6.4-8.2)
[2022-05-14] MEDS: FAMOTIDINE (10MG/ML) 2ML VL IV SCH (09:10)
[2022-05-14] MEDS: FLUCONAZOLE 200MG/100ML 100 ML IV SCH (09:10)
[2022-05-14] MEDS: SODIUM CHLOR 0.9% PF (SALINE LOCK) 10ML VIAL/SYR IV SCH ×2 (09:11→22:20)
[2022-05-14 10:04] LABS: % Iron Saturation 65.5 % (15-50)
[2022-05-14] MEDS: DOXYCYCLINE 100MG/250ML 250 ML IV SCH (12:07)
[2022-05-14] MEDS: Vital AF 1.2 Cal 1 liter bottle GT SCH (13:01)
[2022-05-14] MEDS ORDERED: PANTOPRAZOLE 40 MG/10 ML VIAL INJ IV ONE (16:00)
[2022-05-14] MEDS: PROPOFOL 100 ML IV SCH (21:10)
[2022-05-14] MEDS ORDERED: diphenhdrAMINE HCL 25 MG CAP PO ONE ×2 (21:30→22:26)
[2022-05-14] MEDS: MIDAZOLAM DRIP 50 mg/50mL 50 ML IV SCH (22:15)
[2022-05-14] MEDS: PANTOPRAZOLE 40 MG/10 ML VIAL INJ IV SCH (22:20)
[2022-05-15] VITALS (73 sets, daily range): BP systolic 96–145; BP diastolic 37–60
[2022-05-15] MEDS: IPRATROPIUM BROM 0.5 MG/2.5ML INH SOL NEB PRN (00:22)
[2022-05-15] MEDS: ALBUTEROL SULF 2.5 MG/0.5ML(0.5%) NEB SOLN NEB PRN (00:22)
[2022-05-15] MEDS: DOXYCYCLINE 100MG/250ML 250 ML IV SCH ×3 (00:41→23:30)
[2022-05-15] MEDS: ACCU-CHEK COMFORT CURVE STRIP VI SCH ×5 (00:41→23:31)
[2022-05-15 04:40] LABS: Basophils # (auto) 0 10 ^3/uL (0-0.2); Eosinophils # (auto) 0.3 10 ^3/uL (0-0.8); Hemoglobin 8.3 g/dL (12.2-16.2); Lymphocytes # (auto) 1.4 10 ^3/uL (0.4-5.4); Monocytes # (auto) 0.6 10 ^3/uL (0-1.3); Nucleated Red Blood Cells % 0.2 %
[2022-05-15 04:41] LABS: Basophils % (auto) 0.6 % (0.0-2.0); Eosinophils % (auto) 5.8 % (0.0-7.0); Hematocrit 24.6 % (36.0-46.0); Lymphocytes % (auto) 25.1 % (10.0-50.0); Mean Corpuscular Hemoglobin 31.9 pg (28.0-32.0); Mean Corpuscular Hgb Conc. 33.9 g/dL (32.0-36.0); Mean Corpuscular Volume 94.2 fL (80.0-100.0); Monocytes % (auto) 11.7 % (0.0-12.0); Neutrophils # (auto) 3.1 10 ^3/uL (1.6-8.6); Neutrophils % (auto) 56.8 % (37.0-80.0); Red Blood Cells 2.61 10^6/uL (4.0-5.20); Red Cell Distribution Width 17.3 % (11.8-14.3); White Blood Cell 5.5 10^3/uL (4.4-10.8)
[2022-05-15 04:56] LABS: BUN/Creatinine Ratio 26.9; Calcium 8.8 mg/dL (8.5-10.1); Potassium 3.9 mmol/L (3.5-5.1)
[2022-05-15] MEDS: InsuLIN REG 1unit/0.01ml Soln (100units/ml) SC SCH ×5 (05:38→23:40)
[2022-05-15] MEDS: FLUCONAZOLE 200MG/100ML 100 ML IV SCH (11:40)
[2022-05-15] MEDS: SUCRALFATE 1 GM/10 ML ORAL SUSP GT SCH ×2 (11:40→17:12)
[2022-05-15] MEDS: SODIUM CHLOR 0.9% PF (SALINE LOCK) 10ML VIAL/SYR IV SCH ×2 (11:40→22:00)
[2022-05-15] MEDS: PANTOPRAZOLE 40 MG/10 ML VIAL INJ IV SCH ×2 (11:40→23:29)
[2022-05-15] MEDS: METOCLOPRAMIDE HCL 5MG/ml INJ 2ml VIAL IV SCH ×2 (13:40→23:29)
[2022-05-15] MEDS: ALBUTEROL SULF 2.5 MG/0.5ML(0.5%) NEB SOLN NEB SCH ×3 (15:09→18:12)
[2022-05-15] MEDS: IPRATROPIUM BROM 0.5 MG/2.5ML INH SOL NEB SCH ×3 (15:09→18:12)
[2022-05-15] MEDS: MIDAZOLAM DRIP 50 mg/50mL 50 ML IV SCH (22:15)
[2022-05-15] MEDS: fentaNYL Drip 2500mCg/250mlNS 250 ML IV SCH (22:15)
[2022-05-15] MEDS: PROPOFOL 100 ML IV SCH (22:15)
[2022-05-16] VITALS (62 sets, daily range): BP systolic 100–167; BP diastolic 38–70
[2022-05-16 06:00] LABS: Potassium 4.1 mmol/L (3.5-5.1)
[2022-05-16] MEDS: METOCLOPRAMIDE HCL 5MG/ml INJ 2ml VIAL IV SCH ×3 (06:00→22:13)
[2022-05-16] MEDS: ACCU-CHEK COMFORT CURVE STRIP VI SCH ×3 (06:00→18:36)
[2022-05-16 06:05] LABS: BUN/Creatinine Ratio 27.8; Calcium 8.7 mg/dL (8.5-10.1)
[2022-05-16] MEDS: InsuLIN REG 1unit/0.01ml Soln (100units/ml) SC SCH ×3 (06:30→18:00)
[2022-05-16] MEDS: IPRATROPIUM BROM 0.5 MG/2.5ML INH SOL NEB SCH ×3 (06:52→19:48)
[2022-05-16] MEDS: ALBUTEROL SULF 2.5 MG/0.5ML(0.5%) NEB SOLN NEB SCH ×3 (06:52→19:48)
[2022-05-16] MEDS ORDERED: SODIUM CHL 0.9% 1000 ML BAG XX ONE (07:00)
[2022-05-16 13:55] LABS: Basophils # (auto) 0.1 10 ^3/uL (0-0.2); Eosinophils # (auto) 0.2 10 ^3/uL (0-0.8); Eosinophils % (auto) 3.8 % (0.0-7.0); Hematocrit 30.9 % (36.0-46.0); Hemoglobin 10.1 g/dL (12.2-16.2); Lymphocytes # (auto) 0.9 10 ^3/uL (0.4-5.4); Lymphocytes % (auto) 14.3 % (10.0-50.0); Mean Corpuscular Hemoglobin 30.1 pg (28.0-32.0); Mean Corpuscular Hgb Conc. 32.6 g/dL (32.0-36.0); Mean Corpuscular Volume 92.5 fL (80.0-100.0); Monocytes # (auto) 0.8 10 ^3/uL (0-1.3); Neutrophils # (auto) 4.4 10 ^3/uL (1.6-8.6); Neutrophils % (auto) 67.9 % (37.0-80.0); Nucleated Red Blood Cells % 0.3 %; Red Blood Cells 3.35 10^6/uL (4.0-5.20); Red Cell Distribution Width 17.3 % (11.8-14.3); White Blood Cell 6.4 10^3/uL (4.4-10.8)
[2022-05-16 14:09] LABS: INR 1.23 (0.9-1.15); Partial Thromboplastin Time 32.7 sec (24.6-33.4)
[2022-05-16] MEDS: SUCRALFATE 1 GM/10 ML ORAL SUSP GT SCH ×3 (17:00→18:35)
[2022-05-16] MEDS: DOXYCYCLINE 100MG/250ML 250 ML IV SCH (18:24)
[2022-05-16] MEDS: FLUCONAZOLE 200MG/100ML 100 ML IV SCH (18:26)
[2022-05-16] MEDS: SODIUM CHLOR 0.9% PF (SALINE LOCK) 10ML VIAL/SYR IV SCH ×2 (18:27→22:13)
[2022-05-16] MEDS: PANTOPRAZOLE 40 MG/10 ML VIAL INJ IV SCH ×2 (18:27→22:13)
[2022-05-16] MEDS: MIDAZOLAM DRIP 50 mg/50mL 50 ML IV SCH (22:15)
[2022-05-16] MEDS: fentaNYL Drip 2500mCg/250mlNS 250 ML IV SCH (22:15)
[2022-05-16] MEDS: PROPOFOL 100 ML IV SCH (22:15)
[2022-05-16] MEDS ORDERED: ONDANSETRON HCL 4 MG/2 ML VIAL ONE (23:09)
[2022-05-17] VITALS (46 sets, daily range): BP systolic 90–162; BP diastolic 9–69
[2022-05-17] MEDS: ACCU-CHEK COMFORT CURVE STRIP VI SCH ×4 (00:30→18:20)
[2022-05-17] MEDS: InsuLIN REG 1unit/0.01ml Soln (100units/ml) SC SCH ×4 (00:30→18:18)
[2022-05-17] MEDS: ONDANSETRON HCL 4 MG/2 ML VIAL IV PRN (03:10)
[2022-05-17] MEDS: ALBUTEROL SULF 2.5 MG/0.5ML(0.5%) NEB SOLN NEB PRN (03:11)
[2022-05-17] MEDS: IPRATROPIUM BROM 0.5 MG/2.5ML INH SOL NEB PRN (03:11)
[2022-05-17] MEDS: MORPHINE SULFATE INJ 2 MG/ml SYRG IV PRN (03:20)
[2022-05-17 05:20] LABS: Basophils # (auto) 0.1 10 ^3/uL (0-0.2); Eosinophils # (auto) 0.3 10 ^3/uL (0-0.8); Eosinophils % (auto) 5.6 % (0.0-7.0); Hemoglobin 9.3 g/dL (12.2-16.2); Lymphocytes % (auto) 16.6 % (10.0-50.0); Mean Corpuscular Hemoglobin 30.5 pg (28.0-32.0); Mean Corpuscular Hgb Conc. 33.1 g/dL (32.0-36.0); Monocytes # (auto) 0.7 10 ^3/uL (0-1.3); Monocytes % (auto) 12.5 % (0.0-12.0); Neutrophils # (auto) 3.8 10 ^3/uL (1.6-8.6); Neutrophils % (auto) 64.3 % (37.0-80.0); Nucleated Red Blood Cells % 0.2 %; Red Blood Cells 3.04 10^6/uL (4.0-5.20); Red Cell Distribution Width 16.8 % (11.8-14.3); White Blood Cell 5.9 10^3/uL (4.4-10.8)
[2022-05-17 05:45] LABS: Calcium 8.7 mg/dL (8.5-10.1); Potassium 3.7 mmol/L (3.5-5.1)
[2022-05-17] MEDS: IPRATROPIUM BROM 0.5 MG/2.5ML INH SOL NEB SCH ×3 (06:20→18:25)
[2022-05-17] MEDS: ALBUTEROL SULF 2.5 MG/0.5ML(0.5%) NEB SOLN NEB SCH ×3 (06:20→18:25)
[2022-05-17] MEDS: METOCLOPRAMIDE HCL 5MG/ml INJ 2ml VIAL IV SCH ×3 (06:26→21:54)
[2022-05-17] MEDS ORDERED: NOREPINEPHRINE 8 MG/250ML KIT 250 ML IV ONE (06:50)
[2022-05-17] MEDS: SUCRALFATE 1 GM/10 ML ORAL SUSP GT SCH ×3 (07:00→16:59)
[2022-05-17] MEDS: FLUCONAZOLE 200MG/100ML 100 ML IV SCH (09:21)
[2022-05-17] MEDS: PANTOPRAZOLE 40 MG/10 ML VIAL INJ IV SCH ×2 (09:21→21:54)
[2022-05-17] MEDS: SODIUM CHLOR 0.9% PF (SALINE LOCK) 10ML VIAL/SYR IV SCH ×2 (09:22→21:54)
[2022-05-17] MEDS: DOXYCYCLINE 100MG/250ML 250 ML IV SCH ×2 (11:06)
[2022-05-17] MEDS ORDERED: LIDOCAINE 2%HCL (LOCAL ANESTH.) INJ 20ML MDV ONE (13:30)
[2022-05-17] MEDS ORDERED: HEPARIN SODIUM (PORCINE) 5000 UNITS/ML 1ML VIAL ONE (13:41)
[2022-05-17] MEDS ORDERED: fentaNYL CITRATE 100 MCG/2 ML VL ONE (13:42)
[2022-05-17] MEDS ORDERED: MIDAZOLAM HCL 2MG/2ML 2ml VIAL (1mg/ml) ONE (13:42)
[2022-05-18] VITALS (32 sets, daily range): BP systolic 113–141; BP diastolic 46–67
[2022-05-18] MEDS: DOXYCYCLINE 100MG/250ML 250 ML IV SCH ×2 (00:31→11:31)
[2022-05-18] MEDS: ACCU-CHEK COMFORT CURVE STRIP VI SCH ×4 (00:48→17:36)
[2022-05-18] MEDS: InsuLIN REG 1unit/0.01ml Soln (100units/ml) SC SCH ×4 (00:49→17:37)
[2022-05-18] MEDS: PROPOFOL 100 ML IV SCH ×2 (00:50→22:15)
[2022-05-18] MEDS: fentaNYL Drip 2500mCg/250mlNS 250 ML IV SCH ×2 (00:50→22:15)
[2022-05-18] MEDS: MIDAZOLAM DRIP 50 mg/50mL 50 ML IV SCH ×2 (00:51→22:15)
[2022-05-18 05:04] LABS: Eosinophils # (auto) 0.3 10 ^3/uL (0-0.8); Hematocrit 24.6 % (36.0-46.0); Hemoglobin 8.2 g/dL (12.2-16.2); Lymphocytes # (auto) 1.1 10 ^3/uL (0.4-5.4); Monocytes # (auto) 0.5 10 ^3/uL (0-1.3); White Blood Cell 4.4 10^3/uL (4.4-10.8)
[2022-05-18 05:06] LABS: Basophils # (auto) 0.1 10 ^3/uL (0-0.2); Basophils % (auto) 1.3 % (0.0-2.0); Eosinophils % (auto) 6.8 % (0.0-7.0); Mean Corpuscular Hemoglobin 30.8 pg (28.0-32.0); Mean Corpuscular Hgb Conc. 33.5 g/dL (32.0-36.0); Mean Corpuscular Volume 91.9 fL (80.0-100.0); Monocytes % (auto) 11.3 % (0.0-12.0); Neutrophils # (auto) 2.4 10 ^3/uL (1.6-8.6); Neutrophils % (auto) 55.6 % (37.0-80.0); Nucleated Red Blood Cells % 0.7 %; Red Blood Cells 2.67 10^6/uL (4.0-5.20); Red Cell Distribution Width 16.2 % (11.8-14.3)
[2022-05-18 05:19] LABS: Calcium 8.4 mg/dL (8.5-10.1); Potassium 3.6 mmol/L (3.5-5.1)
[2022-05-18 05:22] LABS: BUN/Creatinine Ratio 22.7
[2022-05-18] MEDS: SUCRALFATE 1 GM/10 ML ORAL SUSP GT SCH ×3 (05:54→18:04)
[2022-05-18] MEDS: METOCLOPRAMIDE HCL 5MG/ml INJ 2ml VIAL IV SCH ×3 (05:54→20:14)
[2022-05-18] MEDS ORDERED: SODIUM CHL 0.9% 1000 ML BAG XX ONE (07:00)
[2022-05-18] MEDS: ALBUTEROL SULF 2.5 MG/0.5ML(0.5%) NEB SOLN NEB SCH ×3 (07:22→20:34)
[2022-05-18] MEDS: IPRATROPIUM BROM 0.5 MG/2.5ML INH SOL NEB SCH ×3 (07:23→20:34)
[2022-05-18] MEDS: FLUCONAZOLE 200MG/100ML 100 ML IV SCH (09:46)
[2022-05-18] MEDS: PANTOPRAZOLE 40 MG/10 ML VIAL INJ IV SCH ×2 (09:46→20:15)
[2022-05-18] MEDS: SODIUM CHLOR 0.9% PF (SALINE LOCK) 10ML VIAL/SYR IV SCH (09:47)
[2022-05-18] MEDS ORDERED: EPOETIN ALFA-EPBX 10,000 UNIT/1ML VIAL SC ONE (21:00)
[2022-05-19] VITALS (29 sets, daily range): BP systolic 111–146; BP diastolic 51–75
[2022-05-19] MEDS: DOXYCYCLINE 100MG/250ML 250 ML IV SCH ×2 (00:35→11:50)
[2022-05-19] MEDS: SODIUM CHLOR 0.9% PF (SALINE LOCK) 10ML VIAL/SYR IV SCH ×3 (00:35→22:48)
[2022-05-19] MEDS: ACCU-CHEK COMFORT CURVE STRIP VI SCH ×4 (00:35→17:24)
[2022-05-19] MEDS: InsuLIN REG 1unit/0.01ml Soln (100units/ml) SC SCH ×4 (00:49→17:20)
[2022-05-19 05:03] LABS: Basophils # (auto) 0 10 ^3/uL (0-0.2); Basophils % (auto) 0.8 % (0.0-2.0); Eosinophils # (auto) 0.3 10 ^3/uL (0-0.8); Eosinophils % (auto) 5.8 % (0.0-7.0); Hematocrit 27.2 % (36.0-46.0); Hemoglobin 9.2 g/dL (12.2-16.2); Lymphocytes % (auto) 22.6 % (10.0-50.0); Mean Corpuscular Hemoglobin 30.7 pg (28.0-32.0); Mean Corpuscular Hgb Conc. 33.8 g/dL (32.0-36.0); Mean Corpuscular Volume 90.8 fL (80.0-100.0); Monocytes # (auto) 0.7 10 ^3/uL (0-1.3); Monocytes % (auto) 16.3 % (0.0-12.0); Neutrophils # (auto) 2.4 10 ^3/uL (1.6-8.6); Neutrophils % (auto) 54.5 % (37.0-80.0); Nucleated Red Blood Cells % 0.6 %; Red Cell Distribution Width 16.3 % (11.8-14.3); White Blood Cell 4.5 10^3/uL (4.4-10.8)
[2022-05-19 05:21] LABS: BUN/Creatinine Ratio 13.9; Calcium 8.6 mg/dL (8.5-10.1); Potassium 3.4 mmol/L (3.5-5.1)
[2022-05-19] MEDS: SUCRALFATE 1 GM/10 ML ORAL SUSP GT SCH ×2 (05:44→11:44)
[2022-05-19] MEDS: METOCLOPRAMIDE HCL 5MG/ml INJ 2ml VIAL IV SCH ×3 (05:44→22:00)
[2022-05-19] MEDS: ALBUTEROL SULF 2.5 MG/0.5ML(0.5%) NEB SOLN NEB SCH ×3 (05:49→18:23)
[2022-05-19] MEDS: IPRATROPIUM BROM 0.5 MG/2.5ML INH SOL NEB SCH ×3 (05:49→18:23)
[2022-05-19] MEDS: Vital AF 1.2 Cal 1 liter bottle GT SCH (06:09)
[2022-05-19] MEDS: PANTOPRAZOLE 40 MG/10 ML VIAL INJ IV SCH ×2 (09:21→22:45)
[2022-05-19] MEDS: FLUCONAZOLE 200MG/100ML 100 ML IV SCH (09:21)
[2022-05-19] MEDS: fentaNYL Drip 2500mCg/250mlNS 250 ML IV SCH (22:00)
[2022-05-19] MEDS: PROPOFOL 100 ML IV SCH (22:15)
[2022-05-19] MEDS: MIDAZOLAM DRIP 50 mg/50mL 50 ML IV SCH (22:15)
[2022-05-20] VITALS (29 sets, daily range): BP systolic 107–157; BP diastolic 31–74
[2022-05-20] MEDS: ACCU-CHEK COMFORT CURVE STRIP VI SCH ×4 (00:01→17:22)
[2022-05-20] MEDS: InsuLIN REG 1unit/0.01ml Soln (100units/ml) SC SCH ×4 (00:12→17:20)
[2022-05-20 05:10] LABS: BUN/Creatinine Ratio 15.8; Calcium 8.8 mg/dL (8.5-10.1); Potassium 3.2 mmol/L (3.5-5.1)
[2022-05-20] MEDS: ALBUTEROL SULF 2.5 MG/0.5ML(0.5%) NEB SOLN NEB SCH ×3 (05:34→18:51)
[2022-05-20] MEDS: IPRATROPIUM BROM 0.5 MG/2.5ML INH SOL NEB SCH ×3 (05:34→18:51)
[2022-05-20] MEDS: METOCLOPRAMIDE HCL 5MG/ml INJ 2ml VIAL IV SCH ×4 (05:47→20:19)
[2022-05-20] MEDS: SUCRALFATE 1 GM/10 ML ORAL SUSP GT SCH ×3 (05:47→16:43)
[2022-05-20] MEDS: FLUCONAZOLE 200MG/100ML 100 ML IV SCH (09:09)
[2022-05-20] MEDS: SODIUM CHLOR 0.9% PF (SALINE LOCK) 10ML VIAL/SYR IV SCH ×2 (09:09→22:00)
[2022-05-20] MEDS: PANTOPRAZOLE 40 MG/10 ML VIAL INJ IV SCH ×2 (09:09→22:45)
[2022-05-20] MEDS: DOXYCYCLINE 100MG/250ML 250 ML IV SCH ×2 (11:34)
[2022-05-20] MEDS: MIDAZOLAM DRIP 50 mg/50mL 50 ML IV SCH (20:17)
[2022-05-20] MEDS: fentaNYL Drip 2500mCg/250mlNS 250 ML IV SCH (20:17)
[2022-05-20] MEDS: PROPOFOL 100 ML IV SCH (20:17)
[2022-05-21] VITALS (26 sets, daily range): BP systolic 96–145; BP diastolic 34–70
[2022-05-21] MEDS: ACCU-CHEK COMFORT CURVE STRIP VI SCH ×4 (01:52→17:47)
[2022-05-21] MEDS: IPRATROPIUM BROM 0.5 MG/2.5ML INH SOL NEB SCH ×3 (05:53→17:37)
[2022-05-21] MEDS: ALBUTEROL SULF 2.5 MG/0.5ML(0.5%) NEB SOLN NEB SCH ×3 (05:53→17:37)
[2022-05-21] MEDS: InsuLIN REG 1unit/0.01ml Soln (100units/ml) SC SCH ×4 (06:00→17:47)
[2022-05-21] MEDS: SUCRALFATE 1 GM/10 ML ORAL SUSP GT SCH ×3 (07:00→17:00)
[2022-05-21] MEDS: FLUCONAZOLE 200MG/100ML 100 ML IV SCH (09:12)
[2022-05-21] MEDS: PANTOPRAZOLE 40 MG/10 ML VIAL INJ IV SCH ×2 (09:13→22:00)
[2022-05-21] MEDS: SODIUM CHLOR 0.9% PF (SALINE LOCK) 10ML VIAL/SYR IV SCH ×2 (09:13→22:00)
[2022-05-21] MEDS: DOXYCYCLINE 100MG/250ML 250 ML IV SCH ×2 (12:48)
[2022-05-21] MEDS: METOCLOPRAMIDE HCL 5MG/ml INJ 2ml VIAL IV SCH ×2 (16:56→22:00)
[2022-05-21] MEDS: MIDAZOLAM DRIP 50 mg/50mL 50 ML IV SCH (22:15)
[2022-05-21] MEDS: fentaNYL Drip 2500mCg/250mlNS 250 ML IV SCH (22:15)
[2022-05-21] MEDS: PROPOFOL 100 ML IV SCH (22:15)
[2022-05-22] VITALS (22 sets, daily range): BP systolic 89–154; BP diastolic 35–69
[2022-05-22] MEDS: DOXYCYCLINE 100MG/250ML 250 ML IV SCH ×2 (00:22→12:14)
[2022-05-22] MEDS: ONDANSETRON HCL 4 MG/2 ML VIAL IV PRN (00:35)
[2022-05-22] MEDS: MORPHINE SULFATE INJ 2 MG/ml SYRG IV PRN (02:21)
[2022-05-22] MEDS: ACCU-CHEK COMFORT CURVE STRIP VI SCH ×4 (06:00→18:13)
[2022-05-22] MEDS: IPRATROPIUM BROM 0.5 MG/2.5ML INH SOL NEB SCH ×3 (06:00→18:23)
[2022-05-22] MEDS: METOCLOPRAMIDE HCL 5MG/ml INJ 2ml VIAL IV SCH ×3 (06:00→22:00)
[2022-05-22] MEDS: ALBUTEROL SULF 2.5 MG/0.5ML(0.5%) NEB SOLN NEB SCH ×3 (06:00→18:24)
[2022-05-22] MEDS: InsuLIN REG 1unit/0.01ml Soln (100units/ml) SC SCH ×4 (06:00→17:33)
[2022-05-22 08:23] LABS: Eosinophils # (auto) 0.2 10 ^3/uL (0-0.8); Lymphocytes # (auto) 1.1 10 ^3/uL (0.4-5.4); Mean Corpuscular Volume 91.3 fL (80.0-100.0); Monocytes # (auto) 0.5 10 ^3/uL (0-1.3)
[2022-05-22 08:25] LABS: Basophils # (auto) 0 10 ^3/uL (0-0.2); Basophils % (auto) 1.2 % (0.0-2.0); Eosinophils % (auto) 5.3 % (0.0-7.0); Hematocrit 23.6 % (36.0-46.0); Hemoglobin 7.8 g/dL (12.2-16.2); Lymphocytes % (auto) 27.6 % (10.0-50.0); Mean Corpuscular Hemoglobin 30.3 pg (28.0-32.0); Mean Corpuscular Hgb Conc. 33.2 g/dL (32.0-36.0); Monocytes % (auto) 12.6 % (0.0-12.0); Neutrophils # (auto) 2.1 10 ^3/uL (1.6-8.6); Neutrophils % (auto) 53.3 % (37.0-80.0); Nucleated Red Blood Cells % 0.5 %; Red Blood Cells 2.59 10^6/uL (4.0-5.20)
[2022-05-22 08:45] LABS: Calcium 8.1 mg/dL (8.5-10.1)
[2022-05-22 08:51] LABS: Albumin 1.9 g/dL (3.4-5.0); BUN/Creatinine Ratio 22.8; Bilirubin, Total 0.9 mg/dL (0.2-1.0); Total Protein 6.5 g/dL (6.4-8.2)
[2022-05-22 09:00] LABS: Potassium 2.8 mmol/L (3.5-5.1)
[2022-05-22] MEDS: IPRATROPIUM BROM 0.5 MG/2.5ML INH SOL NEB PRN (10:25)
[2022-05-22] MEDS: ALBUTEROL SULF 2.5 MG/0.5ML(0.5%) NEB SOLN NEB PRN (10:25)
[2022-05-22] MEDS: FLUCONAZOLE 200MG/100ML 100 ML IV SCH (10:32)
[2022-05-22] MEDS: SUCRALFATE 1 GM/10 ML ORAL SUSP GT SCH ×3 (10:32→17:35)
[2022-05-22] MEDS: PANTOPRAZOLE 40 MG/10 ML VIAL INJ IV SCH ×2 (10:32→22:51)
[2022-05-22] MEDS: SODIUM CHLOR 0.9% PF (SALINE LOCK) 10ML VIAL/SYR IV SCH ×2 (10:33→22:00)
[2022-05-22] MEDS ORDERED: B-COMPLEX W/ C & FOLIC ACID(NEPHROVITE TAB) PO ONE (11:45)
[2022-05-22] MEDS: POTASSIUM EFFERVESENT TAB 25 MEQ NG SCH ×3 (12:03→17:36)
[2022-05-23] VITALS (8 sets, daily range): BP systolic 122–151; BP diastolic 51–71
[2022-05-23] MEDS: DOXYCYCLINE 100MG/250ML 250 ML IV SCH ×2 (00:12→11:56)
[2022-05-23] MEDS ORDERED: TEMAZEPAM 15 MG CAP PO ONE (00:15)
[2022-05-23] MEDS: ACCU-CHEK COMFORT CURVE STRIP VI SCH ×4 (06:00→17:25)
[2022-05-23] MEDS: InsuLIN REG 1unit/0.01ml Soln (100units/ml) SC SCH ×4 (06:00→17:24)
[2022-05-23] MEDS: METOCLOPRAMIDE HCL 5MG/ml INJ 2ml VIAL IV SCH ×3 (06:00→22:01)
[2022-05-23] MEDS: IPRATROPIUM BROM 0.5 MG/2.5ML INH SOL NEB SCH ×3 (06:07→18:31)
[2022-05-23] MEDS: ALBUTEROL SULF 2.5 MG/0.5ML(0.5%) NEB SOLN NEB SCH ×3 (06:07→18:30)
[2022-05-23] MEDS: SUCRALFATE 1 GM/10 ML ORAL SUSP GT SCH ×3 (07:00→17:23)
[2022-05-23 07:44] LABS: Basophils # (auto) 0 10 ^3/uL (0-0.2); Basophils % (auto) 1.1 % (0.0-2.0); Eosinophils # (auto) 0.2 10 ^3/uL (0-0.8); Eosinophils % (auto) 4.2 % (0.0-7.0); Hematocrit 26.5 % (36.0-46.0); Hemoglobin 8.7 g/dL (12.2-16.2); Lymphocytes # (auto) 1.1 10 ^3/uL (0.4-5.4); Lymphocytes % (auto) 27.5 % (10.0-50.0); Mean Corpuscular Hemoglobin 29.6 pg (28.0-32.0); Mean Corpuscular Hgb Conc. 32.7 g/dL (32.0-36.0); Mean Corpuscular Volume 90.6 fL (80.0-100.0); Monocytes # (auto) 0.6 10 ^3/uL (0-1.3); Monocytes % (auto) 15.3 % (0.0-12.0); Neutrophils # (auto) 2.1 10 ^3/uL (1.6-8.6); Neutrophils % (auto) 51.9 % (37.0-80.0); Nucleated Red Blood Cells % 0.3 %; Red Blood Cells 2.92 10^6/uL (4.0-5.20); Red Cell Distribution Width 16.2 % (11.8-14.3)
[2022-05-23 07:59] LABS: BUN/Creatinine Ratio 21.5; Calcium 8.5 mg/dL (8.5-10.1); Potassium 4.3 mmol/L (3.5-5.1)
[2022-05-23] MEDS: FLUCONAZOLE 200MG/100ML 100 ML IV SCH (10:31)
[2022-05-23] MEDS: SODIUM CHLOR 0.9% PF (SALINE LOCK) 10ML VIAL/SYR IV SCH ×2 (10:32→22:01)
[2022-05-23] MEDS: PANTOPRAZOLE 40 MG/10 ML VIAL INJ IV SCH ×2 (10:32→22:00)
[2022-05-23] MEDS: B-COMPLEX W/ C & FOLIC ACID(NEPHROVITE TAB) PO SCH (10:32)
[2022-05-23] MEDS ORDERED: DOCUSATE ORAL LIQUID 100 MG/10 ML UD GT PRN (13:00)
[2022-05-24] VITALS (13 sets, daily range): BP systolic 118–146; BP diastolic 48–68
[2022-05-24] MEDS: InsuLIN REG 1unit/0.01ml Soln (100units/ml) SC SCH ×4 (00:38→17:38)
[2022-05-24] MEDS: ALBUTEROL SULF 2.5 MG/0.5ML(0.5%) NEB SOLN NEB PRN (04:39)
[2022-05-24] MEDS: IPRATROPIUM BROM 0.5 MG/2.5ML INH SOL NEB PRN (04:39)
[2022-05-24] MEDS: ACCU-CHEK COMFORT CURVE STRIP VI SCH ×4 (05:35→17:38)
[2022-05-24] MEDS: METOCLOPRAMIDE HCL 5MG/ml INJ 2ml VIAL IV SCH (05:38)
[2022-05-24] MEDS: IPRATROPIUM BROM 0.5 MG/2.5ML INH SOL NEB SCH ×3 (06:19→18:15)
[2022-05-24] MEDS: ALBUTEROL SULF 2.5 MG/0.5ML(0.5%) NEB SOLN NEB SCH ×3 (06:19→18:15)
[2022-05-24 08:47] LABS: Basophils # (auto) 0 10 ^3/uL (0-0.2); Eosinophils # (auto) 0.1 10 ^3/uL (0-0.8); Lymphocytes # (auto) 1.2 10 ^3/uL (0.4-5.4); Monocytes # (auto) 0.5 10 ^3/uL (0-1.3); Monocytes % (auto) 13.2 % (0.0-12.0)
[2022-05-24 08:49] LABS: Albumin 1.8 g/dL (3.4-5.0); BUN/Creatinine Ratio 22.5; Basophils % (auto) 1.2 % (0.0-2.0); Calcium 8.4 mg/dL (8.5-10.1); Eosinophils % (auto) 3.2 % (0.0-7.0); Hemoglobin 8.2 g/dL (12.2-16.2); Lymphocytes % (auto) 30.6 % (10.0-50.0); Mean Corpuscular Hemoglobin 28.7 pg (28.0-32.0); Mean Corpuscular Hgb Conc. 31.6 g/dL (32.0-36.0); Neutrophils % (auto) 51.8 % (37.0-80.0); Red Blood Cells 2.85 10^6/uL (4.0-5.20); Red Cell Distribution Width 16.4 % (11.8-14.3); Total Protein 6.8 g/dL (6.4-8.2); White Blood Cell 3.8 10^3/uL (4.4-10.8)
[2022-05-24] MEDS: FLUCONAZOLE 200MG/100ML 100 ML IV SCH (09:41)
[2022-05-24] MEDS: B-COMPLEX W/ C & FOLIC ACID(NEPHROVITE TAB) PO SCH (09:41)
[2022-05-24] MEDS: SUCRALFATE 1 GM/10 ML ORAL SUSP GT SCH ×3 (09:41→17:00)
[2022-05-24] MEDS: PANTOPRAZOLE 40 MG/10 ML VIAL INJ IV SCH ×2 (09:41→21:52)
[2022-05-24] MEDS: SODIUM CHLOR 0.9% PF (SALINE LOCK) 10ML VIAL/SYR IV SCH ×2 (09:42→21:52)
[2022-05-24 11:13] LABS: Band Neutrophils % (manual) 0; Basophils % (manual) 0 (0.0-2.0); Blast Cells 0; Metamyelocytes % 0; Myelocytes % 0; Promyelocytes % 0; Reactive Lymphocytes 0
[2022-05-24 12:20] LABS: Eosinophils % (manual) 1 (0-7); Lymphocytes % (manual) 33 (10.0-50.0); Monocytes % (manual) 7 (0-12)
[2022-05-24] MEDS: DOXYCYCLINE 100MG/250ML 250 ML IV SCH ×3 (17:38→23:32)
[2022-05-25] VITALS (24 sets, daily range): BP systolic 121–155; BP diastolic 48–79
[2022-05-25] MEDS: ACCU-CHEK COMFORT CURVE STRIP VI SCH ×5 (00:51→23:33)
[2022-05-25] MEDS: InsuLIN REG 1unit/0.01ml Soln (100units/ml) SC SCH ×5 (00:51→23:33)
[2022-05-25] MEDS: IPRATROPIUM BROM 0.5 MG/2.5ML INH SOL NEB SCH ×3 (06:16→18:19)
[2022-05-25] MEDS: ALBUTEROL SULF 2.5 MG/0.5ML(0.5%) NEB SOLN NEB SCH ×3 (06:16→18:20)
[2022-05-25] MEDS: SUCRALFATE 1 GM/10 ML ORAL SUSP GT SCH ×3 (06:57→17:00)
[2022-05-25 09:21] LABS: BUN/Creatinine Ratio 22.9; Calcium 8.6 mg/dL (8.5-10.1); Potassium 3.8 mmol/L (3.5-5.1)
[2022-05-25] MEDS: MORPHINE SULFATE INJ 2 MG/ml SYRG IV PRN ×2 (09:38→19:09)
[2022-05-25] MEDS: PANTOPRAZOLE 40 MG/10 ML VIAL INJ IV SCH ×2 (09:55→21:56)
[2022-05-25] MEDS: FLUCONAZOLE 200MG/100ML 100 ML IV SCH (09:55)
[2022-05-25] MEDS: B-COMPLEX W/ C & FOLIC ACID(NEPHROVITE TAB) PO SCH (09:56)
[2022-05-25] MEDS: SODIUM CHLOR 0.9% PF (SALINE LOCK) 10ML VIAL/SYR IV SCH ×2 (09:56→21:56)
[2022-05-25] MEDS: DOXYCYCLINE 100MG/250ML 250 ML IV SCH ×2 (11:49→23:33)
[2022-05-26] VITALS (16 sets, daily range): BP systolic 119–157; BP diastolic 45–69
[2022-05-26] MEDS: ALBUTEROL SULF 2.5 MG/0.5ML(0.5%) NEB SOLN NEB SCH ×3 (06:16→17:58)
[2022-05-26] MEDS: IPRATROPIUM BROM 0.5 MG/2.5ML INH SOL NEB SCH ×3 (06:16→17:58)
[2022-05-26] MEDS: InsuLIN REG 1unit/0.01ml Soln (100units/ml) SC SCH ×5 (06:22→23:54)
[2022-05-26] MEDS: ACCU-CHEK COMFORT CURVE STRIP VI SCH ×4 (06:22→23:53)
[2022-05-26] MEDS: SUCRALFATE 1 GM/10 ML ORAL SUSP GT SCH ×3 (06:44→18:30)
[2022-05-26] MEDS: B-COMPLEX W/ C & FOLIC ACID(NEPHROVITE TAB) PO SCH (10:05)
[2022-05-26] MEDS: FLUCONAZOLE 200MG/100ML 100 ML IV SCH (10:05)
[2022-05-26] MEDS ORDERED: LIDOCAINE 2%HCL (LOCAL ANESTH.) INJ 10ml MDV ONE (10:16)
[2022-05-26] MEDS: SODIUM CHLOR 0.9% PF (SALINE LOCK) 10ML VIAL/SYR IV SCH ×2 (12:37→23:53)
[2022-05-26] MEDS: FAMOTIDINE 20 MG TAB PO SCH (13:12)
[2022-05-27] VITALS (8 sets, daily range): BP systolic 124–161; BP diastolic 55–75
[2022-05-27] MEDS: MORPHINE SULFATE INJ 2 MG/ml SYRG IV PRN (00:09)
[2022-05-27] MEDS: ACCU-CHEK COMFORT CURVE STRIP VI SCH ×3 (06:18→18:00)
[2022-05-27] MEDS: InsuLIN REG 1unit/0.01ml Soln (100units/ml) SC SCH ×3 (06:19→18:00)
[2022-05-27] MEDS: SUCRALFATE 1 GM/10 ML ORAL SUSP GT SCH ×4 (06:21→17:00)
[2022-05-27] MEDS: ONDANSETRON HCL 4 MG/2 ML VIAL IV PRN ×2 (07:10→12:09)
[2022-05-27] MEDS: ALBUTEROL SULF 2.5 MG/0.5ML(0.5%) NEB SOLN NEB SCH ×3 (07:21→18:37)
[2022-05-27] MEDS: IPRATROPIUM BROM 0.5 MG/2.5ML INH SOL NEB SCH ×3 (07:21→18:37)
[2022-05-27] MEDS: B-COMPLEX W/ C & FOLIC ACID(NEPHROVITE TAB) PO SCH (10:06)
[2022-05-27] MEDS: FLUCONAZOLE 200MG/100ML 100 ML IV SCH (10:06)
[2022-05-27] MEDS: FAMOTIDINE 20 MG TAB PO SCH (10:07)
[2022-05-27] MEDS: SODIUM CHLOR 0.9% PF (SALINE LOCK) 10ML VIAL/SYR IV SCH ×2 (10:14→22:00)
[2022-05-27 12:47] LABS: BUN/Creatinine Ratio 24.5; Calcium 8.7 mg/dL (8.5-10.1); Potassium 4.1 mmol/L (3.5-5.1)
[2022-05-27] MEDS ORDERED: METOCLOPRAMIDE HCL 5MG/ml INJ 2ml VIAL IV ONE (15:30)
[2022-05-28] VITALS (7 sets, daily range): BP systolic 136–157; BP diastolic 68–76
[2022-05-28] MEDS: InsuLIN REG 1unit/0.01ml Soln (100units/ml) SC SCH ×4 (06:00→18:00)
[2022-05-28] MEDS: ACCU-CHEK COMFORT CURVE STRIP VI SCH ×4 (06:00→18:00)
[2022-05-28 06:03] LABS: BUN/Creatinine Ratio 23.7; Calcium 8.6 mg/dL (8.5-10.1)
[2022-05-28] MEDS: ALBUTEROL SULF 2.5 MG/0.5ML(0.5%) NEB SOLN NEB SCH ×3 (06:17→18:33)
[2022-05-28] MEDS: IPRATROPIUM BROM 0.5 MG/2.5ML INH SOL NEB SCH ×3 (06:17→18:33)
[2022-05-28] MEDS: SUCRALFATE 1 GM/10 ML ORAL SUSP GT SCH ×3 (06:46→17:00)
[2022-05-28] MEDS: SODIUM CHLOR 0.9% PF (SALINE LOCK) 10ML VIAL/SYR IV SCH ×2 (09:40→22:00)
[2022-05-28] MEDS: B-COMPLEX W/ C & FOLIC ACID(NEPHROVITE TAB) PO SCH (09:42)
[2022-05-28] MEDS: FAMOTIDINE 20 MG TAB PO SCH (09:42)
[2022-05-28] MEDS: Glucerna Carbsteady SHAKE Vanilla 8oz PO SCH (18:00)
[2022-05-28] MEDS: MORPHINE SULFATE INJ 2 MG/ml SYRG IV PRN (23:26)
[2022-05-28] MEDS: ONDANSETRON HCL 4 MG/2 ML VIAL IV PRN (23:26)
[2022-05-29] VITALS: BP 140/61
[2022-05-29] MEDS: ACCU-CHEK COMFORT CURVE STRIP VI SCH ×5 (00:01→23:34)
[2022-05-29] MEDS: InsuLIN REG 1unit/0.01ml Soln (100units/ml) SC SCH ×5 (00:02→23:34)
[2022-05-29 05:00] VITALS: BP 138/62
[2022-05-29] MEDS: IPRATROPIUM BROM 0.5 MG/2.5ML INH SOL NEB SCH ×3 (05:57→18:16)
[2022-05-29] MEDS: ALBUTEROL SULF 2.5 MG/0.5ML(0.5%) NEB SOLN NEB SCH ×3 (05:57→18:16)
[2022-05-29] MEDS: SUCRALFATE 1 GM/10 ML ORAL SUSP GT SCH ×3 (06:06→17:56)
[2022-05-29 06:53] LABS: Basophils # (auto) 0 10 ^3/uL (0-0.2); Basophils % (auto) 0.8 % (0.0-2.0); Eosinophils # (auto) 0.1 10 ^3/uL (0-0.8); Lymphocytes # (auto) 1.1 10 ^3/uL (0.4-5.4); Monocytes # (auto) 0.6 10 ^3/uL (0-1.3); Neutrophils # (auto) 1.7 10 ^3/uL (1.6-8.6); White Blood Cell 3.5 10^3/uL (4.4-10.8)
[2022-05-29 06:57] LABS: Eosinophils % (auto) 4.1 % (0.0-7.0); Hemoglobin 7.8 g/dL (12.2-16.2); Lymphocytes % (auto) 30.5 % (10.0-50.0); Mean Corpuscular Hemoglobin 29.6 pg (28.0-32.0); Mean Corpuscular Hgb Conc. 32.7 g/dL (32.0-36.0); Mean Corpuscular Volume 90.5 fL (80.0-100.0); Monocytes % (auto) 16.7 % (0.0-12.0); Neutrophils % (auto) 47.9 % (37.0-80.0); Nucleated Red Blood Cells % 0.1 %; Red Blood Cells 2.65 10^6/uL (4.0-5.20); Red Cell Distribution Width 16.4 % (11.8-14.3)
[2022-05-29 07:08] LABS: Calcium 8.6 mg/dL (8.5-10.1); Potassium 3.9 mmol/L (3.5-5.1)
[2022-05-29 07:11] LABS: BUN/Creatinine Ratio 20.3
[2022-05-29] MEDS: Glucerna Carbsteady SHAKE Vanilla 8oz PO SCH ×2 (08:00→18:07)
[2022-05-29 09:00] VITALS: BP 147/71
[2022-05-29] MEDS: SODIUM CHLOR 0.9% PF (SALINE LOCK) 10ML VIAL/SYR IV SCH ×2 (10:08→22:00)
[2022-05-29] MEDS: B-COMPLEX W/ C & FOLIC ACID(NEPHROVITE TAB) PO SCH (10:08)
[2022-05-29] MEDS: FAMOTIDINE 20 MG TAB PO SCH (10:08)
[2022-05-29] MEDS ORDERED: ALPRAZolam 0.25 MG TAB PO PRN (12:45)
[2022-05-29 13:00] VITALS: BP 158/75
[2022-05-29 17:00] VITALS: BP 152/63
[2022-05-29 21:06] VITALS: BP 139/76
[2022-05-30 05:31] VITALS: BP 143/64
[2022-05-30 05:31] LABS: Basophils # (auto) 0 10 ^3/uL (0-0.2); Eosinophils # (auto) 0.1 10 ^3/uL (0-0.8); Hemoglobin 7.9 g/dL (12.2-16.2); Lymphocytes # (auto) 0.9 10 ^3/uL (0.4-5.4); Monocytes # (auto) 0.6 10 ^3/uL (0-1.3); Monocytes % (auto) 17.4 % (0.0-12.0); Neutrophils # (auto) 1.6 10 ^3/uL (1.6-8.6); White Blood Cell 3.3 10^3/uL (4.4-10.8)
[2022-05-30 05:33] LABS: Eosinophils % (auto) 3.4 % (0.0-7.0); Hematocrit 25.1 % (36.0-46.0); Lymphocytes % (auto) 28.1 % (10.0-50.0); Mean Corpuscular Hemoglobin 28.6 pg (28.0-32.0); Mean Corpuscular Hgb Conc. 31.5 g/dL (32.0-36.0); Mean Corpuscular Volume 90.7 fL (80.0-100.0); Neutrophils % (auto) 50.1 % (37.0-80.0); Nucleated Red Blood Cells % 0.2 %; Red Blood Cells 2.77 10^6/uL (4.0-5.20); Red Cell Distribution Width 16.2 % (11.8-14.3)
[2022-05-30 05:46] LABS: Calcium 8.4 mg/dL (8.5-10.1); Potassium 3.8 mmol/L (3.5-5.1)
[2022-05-30] MEDS: InsuLIN REG 1unit/0.01ml Soln (100units/ml) SC SCH ×3 (06:00→18:00)
[2022-05-30] MEDS: ALBUTEROL SULF 2.5 MG/0.5ML(0.5%) NEB SOLN NEB SCH ×3 (06:19→18:41)
[2022-05-30] MEDS: IPRATROPIUM BROM 0.5 MG/2.5ML INH SOL NEB SCH ×3 (06:19→18:41)
[2022-05-30] MEDS: ACCU-CHEK COMFORT CURVE STRIP VI SCH ×3 (06:26→18:11)
[2022-05-30] MEDS: SUCRALFATE 1 GM/10 ML ORAL SUSP GT SCH ×3 (06:26→17:30)
[2022-05-30] MEDS: Glucerna Carbsteady SHAKE Vanilla 8oz PO SCH ×2 (08:00→17:49)
[2022-05-30] MEDS: SODIUM CHLOR 0.9% PF (SALINE LOCK) 10ML VIAL/SYR IV SCH (09:19)
[2022-05-30] MEDS: B-COMPLEX W/ C & FOLIC ACID(NEPHROVITE TAB) PO SCH (10:41)
[2022-05-30] MEDS: FAMOTIDINE 20 MG TAB PO SCH (10:42)
[2022-05-30 17:00] VITALS: BP 164/72
[2022-05-30] MEDS: METOPROLOL TARTRATE 25 MG TAB PO SCH (21:45)
[2022-05-30 21:46] VITALS: BP 133/66
[2022-05-30 22:58] VITALS: BP 133/66
[2022-05-31] MEDS: ACCU-CHEK COMFORT CURVE STRIP VI SCH ×4 (00:41→17:59)
[2022-05-31] MEDS: SODIUM CHLOR 0.9% PF (SALINE LOCK) 10ML VIAL/SYR IV SCH ×3 (00:43→22:00)
[2022-05-31 04:53] VITALS: BP 139/62
[2022-05-31] MEDS: InsuLIN REG 1unit/0.01ml Soln (100units/ml) SC SCH ×4 (06:00→17:59)
[2022-05-31] MEDS: ALBUTEROL SULF 2.5 MG/0.5ML(0.5%) NEB SOLN NEB SCH ×3 (06:57→18:36)
[2022-05-31] MEDS: IPRATROPIUM BROM 0.5 MG/2.5ML INH SOL NEB SCH ×3 (06:57→18:36)
[2022-05-31 08:18] VITALS: BP 149/68
[2022-05-31] MEDS: Glucerna Carbsteady SHAKE Vanilla 8oz PO SCH ×2 (08:28→17:59)
[2022-05-31] MEDS: IPRATROPIUM BROM 0.5 MG/2.5ML INH SOL NEB PRN (09:04)
[2022-05-31] MEDS: ALBUTEROL SULF 2.5 MG/0.5ML(0.5%) NEB SOLN NEB PRN (09:04)
[2022-05-31] MEDS: SUCRALFATE 1 GM/10 ML ORAL SUSP GT SCH (09:47)
[2022-05-31] MEDS: METOPROLOL TARTRATE 25 MG TAB PO SCH ×2 (09:47→21:11)
[2022-05-31] MEDS: B-COMPLEX W/ C & FOLIC ACID(NEPHROVITE TAB) PO SCH (09:48)
[2022-05-31] MEDS: FAMOTIDINE 20 MG TAB PO SCH (09:48)
[2022-05-31 12:24] VITALS: BP 150/70
[2022-05-31] MEDS ORDERED: FUROSEMIDE 40 MG/4 ML VIAL IV ONE (12:45)
[2022-05-31] MEDS: ALPRAZolam 0.25 MG TAB PO PRN (12:56)
[2022-05-31 16:57] VITALS: BP 132/48
[2022-05-31 22:00] VITALS: BP 118/45
[2022-06-01] MEDS: ACCU-CHEK COMFORT CURVE STRIP VI SCH ×5 (00:01→23:41)
[2022-06-01] MEDS: InsuLIN REG 1unit/0.01ml Soln (100units/ml) SC SCH ×5 (00:04→23:42)
[2022-06-01] MEDS: ALBUTEROL SULF 2.5 MG/0.5ML(0.5%) NEB SOLN NEB PRN ×2 (03:46→14:47)
[2022-06-01 05:00] VITALS: BP 132/46
[2022-06-01 05:33] LABS: Basophils # (auto) 0 10 ^3/uL (0-0.2); Eosinophils # (auto) 0.2 10 ^3/uL (0-0.8); Hemoglobin 8.3 g/dL (12.2-16.2); Monocytes # (auto) 0.7 10 ^3/uL (0-1.3)
[2022-06-01 05:36] LABS: Basophils % (auto) 0.9 % (0.0-2.0); Eosinophils % (auto) 3.9 % (0.0-7.0); Hematocrit 24.8 % (36.0-46.0); Lymphocytes % (auto) 25.5 % (10.0-50.0); Mean Corpuscular Hemoglobin 29.8 pg (28.0-32.0); Mean Corpuscular Hgb Conc. 33.5 g/dL (32.0-36.0); Mean Corpuscular Volume 89.2 fL (80.0-100.0); Neutrophils # (auto) 2.1 10 ^3/uL (1.6-8.6); Neutrophils % (auto) 51.5 % (37.0-80.0); Nucleated Red Blood Cells % 0.1 %; Red Blood Cells 2.78 10^6/uL (4.0-5.20); Red Cell Distribution Width 16.2 % (11.8-14.3)
[2022-06-01 05:41] LABS: Monocytes % (auto) 18.2 % (0.0-12.0)
[2022-06-01 05:49] LABS: BUN/Creatinine Ratio 18.6; Calcium 8.7 mg/dL (8.5-10.1); Potassium 3.4 mmol/L (3.5-5.1)
[2022-06-01] MEDS: IPRATROPIUM BROM 0.5 MG/2.5ML INH SOL NEB SCH ×4 (06:13→22:16)
[2022-06-01] MEDS: ALBUTEROL SULF 2.5 MG/0.5ML(0.5%) NEB SOLN NEB SCH ×4 (06:13→22:16)
[2022-06-01] MEDS: Glucerna Carbsteady SHAKE Vanilla 8oz PO SCH ×2 (08:00→18:24)
[2022-06-01 09:00] VITALS: BP 146/67
[2022-06-01] MEDS: B-COMPLEX W/ C & FOLIC ACID(NEPHROVITE TAB) PO SCH (10:10)
[2022-06-01] MEDS: METOPROLOL TARTRATE 25 MG TAB PO SCH ×2 (10:10→22:10)
[2022-06-01] MEDS: SODIUM CHLOR 0.9% PF (SALINE LOCK) 10ML VIAL/SYR IV SCH ×2 (10:10→22:23)
[2022-06-01] MEDS: guaiFENesin-DM 100/10mg/5ml SYR PO PRN ×2 (10:10→15:00)
[2022-06-01] MEDS: FAMOTIDINE 20 MG TAB PO SCH (10:10)
[2022-06-01] MEDS: ALPRAZolam 0.25 MG TAB PO PRN (12:52)
[2022-06-01] MEDS: IPRATROPIUM BROM 0.5 MG/2.5ML INH SOL NEB PRN (14:47)
[2022-06-01] MEDS ORDERED: FUROSEMIDE 40 MG/4 ML VIAL IV ONE (15:00)
[2022-06-01] MEDS ORDERED: POTASSIUM CHL 20 Meq TABLET PO ONE (15:00)
[2022-06-01 22:05] VITALS: BP 120/50
[2022-06-02 00:20] VITALS: BP 139/76
[2022-06-02 05:17] VITALS: BP 130/56
[2022-06-02 05:49] LABS: BUN/Creatinine Ratio 17.8; Calcium 8.6 mg/dL (8.5-10.1); Potassium 4.1 mmol/L (3.5-5.1)
[2022-06-02] MEDS: InsuLIN REG 1unit/0.01ml Soln (100units/ml) SC SCH ×3 (06:00→17:34)
[2022-06-02] MEDS: ACCU-CHEK COMFORT CURVE STRIP VI SCH ×3 (06:17→17:34)
[2022-06-02] MEDS: ALBUTEROL SULF 2.5 MG/0.5ML(0.5%) NEB SOLN NEB SCH ×5 (07:17→22:42)
[2022-06-02] MEDS: IPRATROPIUM BROM 0.5 MG/2.5ML INH SOL NEB SCH ×5 (07:17→22:42)
[2022-06-02] MEDS: Glucerna Carbsteady SHAKE Vanilla 8oz PO SCH ×2 (08:30→18:00)
[2022-06-02 09:00] VITALS: BP 112/49
[2022-06-02] MEDS ORDERED: POTASSIUM CHL 20 Meq TABLET PO SCH (10:00)
[2022-06-02] MEDS: FUROSEMIDE 40 MG/4 ML VIAL IV SCH (10:58)
[2022-06-02] MEDS: SODIUM CHLOR 0.9% PF (SALINE LOCK) 10ML VIAL/SYR IV SCH ×2 (10:58→21:14)
[2022-06-02] MEDS: METOPROLOL TARTRATE 25 MG TAB PO SCH (10:59)
[2022-06-02] MEDS: FAMOTIDINE 20 MG TAB PO SCH (11:00)
[2022-06-02] MEDS: B-COMPLEX W/ C & FOLIC ACID(NEPHROVITE TAB) PO SCH (11:00)
[2022-06-02 13:00] VITALS: BP_SYST 99; BP_DIAS 54; BP_DIAS 59
[2022-06-02] MEDS ORDERED: TEMAZEPAM 15 MG CAP PO PRN (14:45)
[2022-06-02 17:00] VITALS: BP 119/47
[2022-06-02] MEDS: ACETAMINOPHEN 325 MG TAB PO PRN (18:56)
[2022-06-02 22:00] VITALS: BP 129/58
[2022-06-03] MEDS: ACCU-CHEK COMFORT CURVE STRIP VI SCH ×4 (01:59→18:02)
[2022-06-03 04:21] LABS: Calcium 8.6 mg/dL (8.5-10.1)
[2022-06-03 04:25] LABS: BUN/Creatinine Ratio 17.7
[2022-06-03 05:00] VITALS: BP 137/55
[2022-06-03] MEDS: InsuLIN REG 1unit/0.01ml Soln (100units/ml) SC SCH ×4 (06:00→18:07)
[2022-06-03] MEDS: ALBUTEROL SULF 2.5 MG/0.5ML(0.5%) NEB SOLN NEB SCH ×5 (06:25→22:10)
[2022-06-03] MEDS: IPRATROPIUM BROM 0.5 MG/2.5ML INH SOL NEB SCH ×5 (06:25→22:10)
[2022-06-03] MEDS: Glucerna Carbsteady SHAKE Vanilla 8oz PO SCH ×2 (08:30→18:02)
[2022-06-03 09:00] VITALS: BP 136/49
[2022-06-03] MEDS: SODIUM CHLOR 0.9% PF (SALINE LOCK) 10ML VIAL/SYR IV SCH ×2 (09:55→22:03)
[2022-06-03] MEDS: BUDESONIDE (INHALATION) 0.5 MG/2 ML NEB NEB SCH ×2 (09:59→18:55)
[2022-06-03] MEDS: FAMOTIDINE 20 MG TAB PO SCH (10:30)
[2022-06-03] MEDS: methylPREDNISolone SOD SUCC 40 MG/ML VL IV SCH ×2 (10:30→22:04)
[2022-06-03] MEDS: FUROSEMIDE 40 MG/4 ML VIAL IV SCH (10:30)
[2022-06-03] MEDS: B-COMPLEX W/ C & FOLIC ACID(NEPHROVITE TAB) PO SCH (10:30)
[2022-06-03 12:37] VITALS: BP 181/84
[2022-06-03] MEDS: hydrALAZINE HCL 20 MG/ML VL IV PRN (12:58)
[2022-06-03 16:56] VITALS: BP 116/59
[2022-06-03 22:00] VITALS: BP 132/60
[2022-06-04 05:00] VITALS: BP 131/111
[2022-06-04] MEDS: IPRATROPIUM BROM 0.5 MG/2.5ML INH SOL NEB SCH ×5 (06:21→23:16)
[2022-06-04] MEDS: ALBUTEROL SULF 2.5 MG/0.5ML(0.5%) NEB SOLN NEB SCH ×5 (06:21→23:16)
[2022-06-04] MEDS: InsuLIN REG 1unit/0.01ml Soln (100units/ml) SC SCH ×4 (06:40→17:45)
[2022-06-04] MEDS: ACCU-CHEK COMFORT CURVE STRIP VI SCH ×4 (06:41→17:40)
[2022-06-04] MEDS: hydrALAZINE HCL 20 MG/ML VL IV PRN (06:41)
[2022-06-04] MEDS: Glucerna Carbsteady SHAKE Vanilla 8oz PO SCH ×2 (08:00→17:45)
[2022-06-04 09:00] VITALS: BP 105/52
[2022-06-04] MEDS: BUDESONIDE (INHALATION) 0.5 MG/2 ML NEB NEB SCH ×2 (09:52→23:16)
[2022-06-04] MEDS: methylPREDNISolone SOD SUCC 40 MG/ML VL IV SCH ×2 (10:39→22:19)
[2022-06-04] MEDS: FUROSEMIDE 40 MG/4 ML VIAL IV SCH (10:39)
[2022-06-04] MEDS: SODIUM CHLOR 0.9% PF (SALINE LOCK) 10ML VIAL/SYR IV SCH ×2 (10:40→22:18)
[2022-06-04] MEDS: B-COMPLEX W/ C & FOLIC ACID(NEPHROVITE TAB) PO SCH (10:40)
[2022-06-04] MEDS: FAMOTIDINE 20 MG TAB PO SCH (10:40)
[2022-06-04] MEDS: ACETAMINOPHEN 325 MG TAB PO PRN (10:47)
[2022-06-04 13:00] VITALS: BP 143/75
[2022-06-04 17:00] VITALS: BP 154/71
[2022-06-04 20:53] VITALS: BP 154/71
[2022-06-04 22:00] VITALS: BP 154/77
[2022-06-05] MEDS: ACCU-CHEK COMFORT CURVE STRIP VI SCH ×4 (00:21→17:40)
[2022-06-05] MEDS: InsuLIN REG 1unit/0.01ml Soln (100units/ml) SC SCH ×4 (00:33→17:57)
[2022-06-05 05:00] VITALS: BP 152/70
[2022-06-05] MEDS: ALBUTEROL SULF 2.5 MG/0.5ML(0.5%) NEB SOLN NEB SCH ×5 (07:33→22:54)
[2022-06-05] MEDS: IPRATROPIUM BROM 0.5 MG/2.5ML INH SOL NEB SCH ×5 (07:33→22:55)
[2022-06-05] MEDS: Glucerna Carbsteady SHAKE Vanilla 8oz PO SCH ×2 (08:00→17:41)
[2022-06-05 08:30] VITALS: BP 142/68
[2022-06-05] MEDS: FUROSEMIDE 40 MG/4 ML VIAL IV SCH (10:37)
[2022-06-05] MEDS: SODIUM CHLOR 0.9% PF (SALINE LOCK) 10ML VIAL/SYR IV SCH ×2 (10:38→22:30)
[2022-06-05] MEDS: B-COMPLEX W/ C & FOLIC ACID(NEPHROVITE TAB) PO SCH (10:38)
[2022-06-05] MEDS: FAMOTIDINE 20 MG TAB PO SCH (10:38)
[2022-06-05] MEDS: methylPREDNISolone SOD SUCC 40 MG/ML VL IV SCH ×2 (10:38→22:30)
[2022-06-05] MEDS: BUDESONIDE (INHALATION) 0.5 MG/2 ML NEB NEB SCH ×2 (11:48→22:55)
[2022-06-05 12:30] VITALS: BP 165/83
[2022-06-05 15:00] VITALS: BP 141/62
[2022-06-05 17:00] VITALS: BP 166/85
[2022-06-05 22:00] VITALS: BP_SYST 152; BP_SYST 158; BP_DIAS 72; BP_DIAS 81
[2022-06-06] MEDS: ACCU-CHEK COMFORT CURVE STRIP VI SCH ×5 (00:02→23:12)
[2022-06-06] MEDS: InsuLIN REG 1unit/0.01ml Soln (100units/ml) SC SCH ×5 (00:06→23:16)
[2022-06-06 04:32] VITALS: BP 116/50
[2022-06-06] MEDS: IPRATROPIUM BROM 0.5 MG/2.5ML INH SOL NEB SCH ×4 (06:26→18:51)
[2022-06-06] MEDS: ALBUTEROL SULF 2.5 MG/0.5ML(0.5%) NEB SOLN NEB SCH ×4 (06:26→18:51)
[2022-06-06] MEDS: Glucerna Carbsteady SHAKE Vanilla 8oz PO SCH ×2 (08:14→17:50)
[2022-06-06 09:02] VITALS: BP 137/68
[2022-06-06] MEDS: FUROSEMIDE 40 MG/4 ML VIAL IV SCH (09:43)
[2022-06-06] MEDS: SODIUM CHLOR 0.9% PF (SALINE LOCK) 10ML VIAL/SYR IV SCH ×2 (09:43→21:19)
[2022-06-06] MEDS: methylPREDNISolone SOD SUCC 40 MG/ML VL IV SCH ×2 (09:44→21:20)
[2022-06-06] MEDS: B-COMPLEX W/ C & FOLIC ACID(NEPHROVITE TAB) PO SCH (09:44)
[2022-06-06] MEDS: FAMOTIDINE 20 MG TAB PO SCH (09:44)
[2022-06-06] MEDS: BUDESONIDE (INHALATION) 0.5 MG/2 ML NEB NEB SCH ×2 (09:45→18:51)
[2022-06-06 12:54] VITALS: BP 161/83
[2022-06-06] MEDS: hydrALAZINE HCL 20 MG/ML VL IV PRN (20:55)
[2022-06-06 22:00] VITALS: BP 168/81
[2022-06-06 23:53] LABS: Basophils # (auto) 0 10 ^3/uL (0-0.2); Basophils % (auto) 0.1 % (0.0-2.0); Eosinophils # (auto) 0 10 ^3/uL (0-0.8); Hemoglobin 7.7 g/dL (12.2-16.2); Lymphocytes # (auto) 0.5 10 ^3/uL (0.4-5.4); Lymphocytes % (auto) 10.1 % (10.0-50.0); Neutrophils # (auto) 4.2 10 ^3/uL (1.6-8.6); Red Blood Cells 2.74 10^6/uL (4.0-5.20)
[2022-06-06 23:55] LABS: Hematocrit 25.2 % (36.0-46.0); Mean Corpuscular Hemoglobin 28.2 pg (28.0-32.0); Mean Corpuscular Hgb Conc. 30.7 g/dL (32.0-36.0); Mean Corpuscular Volume 91.7 fL (80.0-100.0); Monocytes # (auto) 0.4 10 ^3/uL (0-1.3); Monocytes % (auto) 7.8 % (0.0-12.0); Red Cell Distribution Width 17.5 % (11.8-14.3); White Blood Cell 5.1 10^3/uL (4.4-10.8)
[2022-06-07 00:11] LABS: Albumin 2.1 g/dL (3.4-5.0); BUN/Creatinine Ratio 31.1; Calcium 9.1 mg/dL (8.5-10.1); Potassium 3.9 mmol/L (3.5-5.1)
[2022-06-07 00:14] LABS: Bilirubin, Total 0.4 mg/dL (0.2-1.0); Total Protein 7.3 g/dL (6.4-8.2)
[2022-06-07 05:00] VITALS: BP 132/54
[2022-06-07] MEDS: ALBUTEROL SULF 2.5 MG/0.5ML(0.5%) NEB SOLN NEB SCH ×5 (05:53→22:07)
[2022-06-07] MEDS: IPRATROPIUM BROM 0.5 MG/2.5ML INH SOL NEB SCH ×5 (05:53→22:07)
[2022-06-07] MEDS: BUDESONIDE (INHALATION) 0.5 MG/2 ML NEB NEB SCH ×2 (05:54→19:22)
[2022-06-07] MEDS: ACCU-CHEK COMFORT CURVE STRIP VI SCH ×4 (05:58→23:44)
[2022-06-07] MEDS: InsuLIN REG 1unit/0.01ml Soln (100units/ml) SC SCH ×4 (05:59→23:47)
[2022-06-07] MEDS: Glucerna Carbsteady SHAKE Vanilla 8oz PO SCH ×2 (08:00→18:00)
[2022-06-07 09:00] VITALS: BP 144/68
[2022-06-07] MEDS: B-COMPLEX W/ C & FOLIC ACID(NEPHROVITE TAB) PO SCH (10:00)
[2022-06-07] MEDS: FAMOTIDINE 20 MG TAB PO SCH (10:00)
[2022-06-07] MEDS: methylPREDNISolone SOD SUCC 40 MG/ML VL IV SCH (10:00)
[2022-06-07] MEDS: SODIUM CHLOR 0.9% PF (SALINE LOCK) 10ML VIAL/SYR IV SCH ×2 (10:01→21:48)
[2022-06-07] MEDS: FUROSEMIDE 40 MG/4 ML VIAL IV SCH (10:03)
[2022-06-07] MEDS ORDERED: FERROUS SULFATE 325mg EC TAB PO ONE (11:45)
[2022-06-07 13:00] VITALS: BP 156/82
[2022-06-07 14:52] LABS: BUN/Creatinine Ratio 34.5; Calcium 9.4 mg/dL (8.5-10.1)
[2022-06-07 17:00] VITALS: BP 166/75
[2022-06-07] MEDS: FERROUS SULFATE 325mg EC TAB PO SCH (18:00)
[2022-06-07 22:00] VITALS: BP 158/83
[2022-06-08] MEDS: hydrALAZINE HCL 20 MG/ML VL IV PRN (05:00)
[2022-06-08] MEDS: ACCU-CHEK COMFORT CURVE STRIP VI SCH ×4 (05:04→23:37)
[2022-06-08] MEDS: InsuLIN REG 1unit/0.01ml Soln (100units/ml) SC SCH ×4 (05:08→23:37)
[2022-06-08 05:30] VITALS: BP 179/89
[2022-06-08] MEDS: IPRATROPIUM BROM 0.5 MG/2.5ML INH SOL NEB SCH ×5 (06:17→22:50)
[2022-06-08] MEDS: ALBUTEROL SULF 2.5 MG/0.5ML(0.5%) NEB SOLN NEB SCH ×5 (06:17→22:50)
[2022-06-08] MEDS: BUDESONIDE (INHALATION) 0.5 MG/2 ML NEB NEB SCH ×2 (06:17→22:49)
[2022-06-08] MEDS: Glucerna Carbsteady SHAKE Vanilla 8oz PO SCH ×2 (08:14→17:55)
[2022-06-08] MEDS: SODIUM CHLOR 0.9% PF (SALINE LOCK) 10ML VIAL/SYR IV SCH ×2 (08:14→21:11)
[2022-06-08] MEDS: B-COMPLEX W/ C & FOLIC ACID(NEPHROVITE TAB) PO SCH (08:18)
[2022-06-08] MEDS: predniSONE 20 MG TAB PO SCH (08:18)
[2022-06-08] MEDS: FAMOTIDINE 20 MG TAB PO SCH (08:18)
[2022-06-08 08:22] VITALS: BP 115/43
[2022-06-08 11:32] VITALS: BP 140/66
[2022-06-08] MEDS: FERROUS SULFATE 325mg EC TAB PO SCH ×2 (12:18→17:55)
[2022-06-08 16:56] VITALS: BP 154/75
[2022-06-08 22:00] VITALS: BP 133/55
[2022-06-09 05:30] VITALS: BP 144/66
[2022-06-09] MEDS: ACCU-CHEK COMFORT CURVE STRIP VI SCH ×3 (05:34→18:06)
[2022-06-09] MEDS: InsuLIN REG 1unit/0.01ml Soln (100units/ml) SC SCH ×3 (05:41→18:05)
[2022-06-09 06:54] LABS: Basophils # (auto) 0 10 ^3/uL (0-0.2); Basophils % (auto) 0.1 % (0.0-2.0); Eosinophils # (auto) 0.1 10 ^3/uL (0-0.8); Hemoglobin 7.8 g/dL (12.2-16.2); Lymphocytes # (auto) 1.1 10 ^3/uL (0.4-5.4); Mean Corpuscular Hemoglobin 28.9 pg (28.0-32.0); Monocytes # (auto) 0.4 10 ^3/uL (0-1.3)
[2022-06-09 06:59] LABS: Eosinophils % (auto) 2.4 % (0.0-7.0); Hematocrit 24.2 % (36.0-46.0); Lymphocytes % (auto) 24.7 % (10.0-50.0); Mean Corpuscular Hgb Conc. 32.2 g/dL (32.0-36.0); Mean Corpuscular Volume 89.7 fL (80.0-100.0); Monocytes % (auto) 9.3 % (0.0-12.0); Neutrophils # (auto) 2.9 10 ^3/uL (1.6-8.6); Neutrophils % (auto) 63.5 % (37.0-80.0); Nucleated Red Blood Cells % 0.1 %; Red Cell Distribution Width 18.3 % (11.8-14.3); White Blood Cell 4.5 10^3/uL (4.4-10.8)
[2022-06-09 07:15] LABS: Potassium 3.2 mmol/L (3.5-5.1)
[2022-06-09 07:20] LABS: BUN/Creatinine Ratio 53.8; Calcium 9.3 mg/dL (8.5-10.1)
[2022-06-09] MEDS: Glucerna Carbsteady SHAKE Vanilla 8oz PO SCH (08:00)
[2022-06-09] MEDS: BUDESONIDE (INHALATION) 0.5 MG/2 ML NEB NEB SCH ×2 (08:12→18:44)
[2022-06-09] MEDS: IPRATROPIUM BROM 0.5 MG/2.5ML INH SOL NEB SCH ×4 (08:12→22:07)
[2022-06-09] MEDS: ALBUTEROL SULF 2.5 MG/0.5ML(0.5%) NEB SOLN NEB SCH ×4 (08:12→22:07)
[2022-06-09 09:00] VITALS: BP 129/67
[2022-06-09] MEDS: FERROUS SULFATE 325mg EC TAB PO SCH ×2 (09:32→18:00)
[2022-06-09] MEDS: SODIUM CHLOR 0.9% PF (SALINE LOCK) 10ML VIAL/SYR IV SCH ×2 (10:00→21:52)
[2022-06-09] MEDS: B-COMPLEX W/ C & FOLIC ACID(NEPHROVITE TAB) PO SCH (11:34)
[2022-06-09] MEDS: FAMOTIDINE 20 MG TAB PO SCH (11:34)
[2022-06-09] MEDS: predniSONE 20 MG TAB PO SCH (11:37)
[2022-06-09 13:00] VITALS: BP 132/60
[2022-06-09] MEDS ORDERED: POTASSIUM CHL 20 Meq TABLET PO ONE (13:30)
[2022-06-09] MEDS ORDERED: DOCUSATE SOD 100 MG CAP PO ONE (13:30)
[2022-06-09 17:00] VITALS: BP 132/68
[2022-06-09] MEDS: DOCUSATE SOD 100 MG CAP PO SCH (21:52)
[2022-06-09 22:00] VITALS: BP 146/74
[2022-06-10] MEDS: ACCU-CHEK COMFORT CURVE STRIP VI SCH ×5 (00:03→23:03)
[2022-06-10] MEDS: InsuLIN REG 1unit/0.01ml Soln (100units/ml) SC SCH ×5 (00:05→23:06)
[2022-06-10 05:00] VITALS: BP 133/58
[2022-06-10] MEDS: IPRATROPIUM BROM 0.5 MG/2.5ML INH SOL NEB SCH ×5 (07:13→22:18)
[2022-06-10] MEDS: BUDESONIDE (INHALATION) 0.5 MG/2 ML NEB NEB SCH ×2 (07:13→22:18)
[2022-06-10] MEDS: ALBUTEROL SULF 2.5 MG/0.5ML(0.5%) NEB SOLN NEB SCH ×5 (07:13→22:18)
[2022-06-10 09:00] VITALS: BP 144/68
[2022-06-10] MEDS: FAMOTIDINE 20 MG TAB PO SCH (10:30)
[2022-06-10] MEDS: FERROUS SULFATE 325mg EC TAB PO SCH ×2 (10:31→18:00)
[2022-06-10] MEDS: SODIUM CHLOR 0.9% PF (SALINE LOCK) 10ML VIAL/SYR IV SCH ×2 (10:31→22:39)
[2022-06-10] MEDS: B-COMPLEX W/ C & FOLIC ACID(NEPHROVITE TAB) PO SCH (10:31)
[2022-06-10] MEDS: predniSONE 20 MG TAB PO SCH (10:31)
[2022-06-10] MEDS: DOCUSATE SOD 100 MG CAP PO SCH ×3 (10:31→22:40)
[2022-06-10 13:00] VITALS: BP 135/59
[2022-06-10] MEDS ORDERED: DEXTROSE (50%) 50ML SYRG IV PRN ×2 (15:00)
[2022-06-10 17:00] VITALS: BP 146/71
[2022-06-10] MEDS ORDERED: ACCU-CHEK COMFORT CURVE STRIP VI SCH (17:00)
[2022-06-10] MEDS ORDERED: InsuLIN REG 1unit/0.01ml Soln (100units/ml) SC SCH ×2 (17:00→22:00)
[2022-06-10] MEDS: INSULIN LANTUS (GLARGINE) 1 /0.01ml (100units/ml) SC SCH (23:07)
[2022-06-10 23:48] VITALS: BP_SYST 140; BP_SYST 80; BP_DIAS 51; BP_DIAS 64
[2022-06-11 01:17] VITALS: BP 140/64
[2022-06-11 05:42] VITALS: BP 146/69
[2022-06-11] MEDS: ACCU-CHEK COMFORT CURVE STRIP VI SCH ×3 (06:09→17:47)
[2022-06-11] MEDS: InsuLIN REG 1unit/0.01ml Soln (100units/ml) SC SCH ×4 (06:13→23:29)
[2022-06-11] MEDS: IPRATROPIUM BROM 0.5 MG/2.5ML INH SOL NEB SCH ×5 (06:44→22:24)
[2022-06-11] MEDS: ALBUTEROL SULF 2.5 MG/0.5ML(0.5%) NEB SOLN NEB SCH ×5 (06:44→22:24)
[2022-06-11] MEDS: FERROUS SULFATE 325mg EC TAB PO SCH ×2 (08:00→17:46)
[2022-06-11 08:57] LABS: Basophils # (auto) 0 10 ^3/uL (0-0.2); Basophils % (auto) 0.2 % (0.0-2.0); Eosinophils # (auto) 0.1 10 ^3/uL (0-0.8); Hemoglobin 7.6 g/dL (12.2-16.2); Lymphocytes # (auto) 1.1 10 ^3/uL (0.4-5.4); Monocytes # (auto) 0.5 10 ^3/uL (0-1.3); Neutrophils # (auto) 4.2 10 ^3/uL (1.6-8.6); Red Cell Distribution Width 18.6 % (11.8-14.3)
[2022-06-11 08:59] LABS: Eosinophils % (auto) 1.7 % (0.0-7.0); Hematocrit 23.9 % (36.0-46.0); Mean Corpuscular Hemoglobin 28.5 pg (28.0-32.0); Mean Corpuscular Hgb Conc. 31.7 g/dL (32.0-36.0); Monocytes % (auto) 8.1 % (0.0-12.0); Nucleated Red Blood Cells % 0.1 %; Red Blood Cells 2.65 10^6/uL (4.0-5.20); White Blood Cell 5.9 10^3/uL (4.4-10.8)
[2022-06-11 09:04] LABS: Calcium 8.9 mg/dL (8.5-10.1); Potassium 3.7 mmol/L (3.5-5.1)
[2022-06-11 09:23] VITALS: BP 134/66
[2022-06-11] MEDS: DOCUSATE SOD 100 MG CAP PO SCH ×2 (09:31→21:41)
[2022-06-11] MEDS: SODIUM CHLOR 0.9% PF (SALINE LOCK) 10ML VIAL/SYR IV SCH ×2 (09:31→21:41)
[2022-06-11] MEDS: B-COMPLEX W/ C & FOLIC ACID(NEPHROVITE TAB) PO SCH (09:31)
[2022-06-11] MEDS: FAMOTIDINE 20 MG TAB PO SCH (09:31)
[2022-06-11] MEDS: predniSONE 20 MG TAB PO SCH (09:32)
[2022-06-11] MEDS: BUDESONIDE (INHALATION) 0.5 MG/2 ML NEB NEB SCH ×2 (10:17→22:24)
[2022-06-11 13:00] VITALS: BP 134/63
[2022-06-11 17:26] VITALS: BP 110/53
[2022-06-11 22:51] VITALS: BP 115/56
[2022-06-11] MEDS: INSULIN LANTUS (GLARGINE) 1 /0.01ml (100units/ml) SC SCH (23:00)
[2022-06-12] MEDS: InsuLIN REG 1unit/0.01ml Soln (100units/ml) SC SCH ×2 (06:00→12:37)
[2022-06-12] MEDS: ACCU-CHEK COMFORT CURVE STRIP VI SCH ×3 (06:05→12:36)
[2022-06-12] MEDS: IPRATROPIUM BROM 0.5 MG/2.5ML INH SOL NEB SCH ×3 (06:53→14:28)
[2022-06-12] MEDS: ALBUTEROL SULF 2.5 MG/0.5ML(0.5%) NEB SOLN NEB SCH ×3 (06:53→14:28)
[2022-06-12] MEDS: BUDESONIDE (INHALATION) 0.5 MG/2 ML NEB NEB SCH (06:53)
[2022-06-12 09:00] VITALS: BP 148/69
[2022-06-12] MEDS: FERROUS SULFATE 325mg EC TAB PO SCH (09:08)
[2022-06-12] MEDS: SODIUM CHLOR 0.9% PF (SALINE LOCK) 10ML VIAL/SYR IV SCH (09:08)
[2022-06-12] MEDS: DOCUSATE SOD 100 MG CAP PO SCH (09:09)
[2022-06-12] MEDS: B-COMPLEX W/ C & FOLIC ACID(NEPHROVITE TAB) PO SCH (09:09)
[2022-06-12] MEDS: predniSONE 20 MG TAB PO SCH (09:09)
[2022-06-12] MEDS: FAMOTIDINE 20 MG TAB PO SCH (09:09)
[2022-06-12 13:00] VITALS: BP 145/67
== END 2022-06-12 16:44 | DRG 4 ==
LOC: ER 04:23 → EDBD 04:23 → TELE 11:01 → DOU IN ICU 14:32 → ICU CENTRL 04-26 04:17 → DOU IN ICU 05-22 18:11 → TELE-WESTW 05-29 01:30
PROVIDERS: ADMIT Registered Nurse; ATTEND Internal Medicine
PROC: 05HB33Z Insertion of Infusion Device into Right Basilic Vein, Percutaneous Approach (ICD-10-PCS; 2022-04-24)
PROC: B54MZZA Ultrasonography of Right Upper Extremity Veins, Guidance (ICD-10-PCS; 2022-04-24)
PROC: 5A09457 Assistance with Respiratory Ventilation, 24-96 Consecutive Hours, Continuous Positive Airway Pressure (ICD-10-PCS; 2022-04-24)
PROC: 5A1955Z Respiratory Ventilation, Greater than 96 Consecutive Hours (ICD-10-PCS; 2022-04-25)
PROC: 0BH17EZ Insertion of Endotracheal Airway into Trachea, Via Natural or Artificial Opening (ICD-10-PCS; 2022-04-25)
PROC: 5A1D70Z Performance of Urinary Filtration, Intermittent, Less than 6 Hours Per Day (ICD-10-PCS; 2022-04-28)
PROC: 06H03DZ Insertion of Intraluminal Device into Inferior Vena Cava, Percutaneous Approach (ICD-10-PCS; 2022-04-30)
PROC: 06HM33Z Insertion of Infusion Device into Right Femoral Vein, Percutaneous Approach (ICD-10-PCS; 2022-04-30)
PROC: 5A1D70Z Performance of Urinary Filtration, Intermittent, Less than 6 Hours Per Day (ICD-10-PCS; 2022-05-01)
PROC: 5A1D70Z Performance of Urinary Filtration, Intermittent, Less than 6 Hours Per Day (ICD-10-PCS; 2022-05-02)
PROC: 5A1D70Z Performance of Urinary Filtration, Intermittent, Less than 6 Hours Per Day (ICD-10-PCS; 2022-05-04)
PROC: 0BJ08ZZ Inspection of Tracheobronchial Tree, Via Natural or Artificial Opening Endoscopic (ICD-10-PCS; 2022-05-09)
PROC: 5A1D70Z Performance of Urinary Filtration, Intermittent, Less than 6 Hours Per Day (ICD-10-PCS; 2022-05-09)
PROC: 30233R1 Transfusion of Nonautologous Platelets into Peripheral Vein, Percutaneous Approach (ICD-10-PCS; 2022-05-12)
PROC: 5A1D70Z Performance of Urinary Filtration, Intermittent, Less than 6 Hours Per Day (ICD-10-PCS; 2022-05-12)
PROC: 0B110F4 Bypass Trachea to Cutaneous with Tracheostomy Device, Open Approach (ICD-10-PCS; principal; 2022-05-12 08:24)
PROC: 5A1D70Z Performance of Urinary Filtration, Intermittent, Less than 6 Hours Per Day (ICD-10-PCS; 2022-05-16)
PROC: 0JH63XZ Insertion of Tunneled Vascular Access Device into Chest Subcutaneous Tissue and Fascia, Percutaneous Approach (ICD-10-PCS; 2022-05-17)
PROC: 02H633Z Insertion of Infusion Device into Right Atrium, Percutaneous Approach (ICD-10-PCS; 2022-05-17)
PROC: B548ZZA Ultrasonography of Superior Vena Cava, Guidance (ICD-10-PCS; 2022-05-17)
PROC: 5A1D70Z Performance of Urinary Filtration, Intermittent, Less than 6 Hours Per Day (ICD-10-PCS; 2022-05-18)
DX: A41.9 Sepsis, unspecified organism (principal); J96.01 Acute respiratory failure with hypoxia; J15.211 Pneumonia due to Methicillin susceptible Staphylococcus aureus; I50.33 Acute on chronic diastolic (congestive) heart failure; N17.0 Acute kidney failure with tubular necrosis; N39.0 Urinary tract infection, site not specified; D69.3 Immune thrombocytopenic purpura; E87.4 Mixed disorder of acid-base balance; I13.0 Hypertensive heart and chronic kidney disease with heart failure and stage 1 through stage 4 chronic kidney disease, or unspecified chronic kidney disease; D68.59 Other primary thrombophilia; J98.11 Atelectasis; E44.0 Moderate protein-calorie malnutrition; I82.431 Acute embolism and thrombosis of right popliteal vein; I82.443 Acute embolism and thrombosis of tibial vein, bilateral; I82.412 Acute embolism and thrombosis of left femoral vein; R31.9 Hematuria, unspecified; R80.9 Proteinuria, unspecified; E88.09 Other disorders of plasma-protein metabolism, not elsewhere classified; E11.65 Type 2 diabetes mellitus with hyperglycemia; D64.9 Anemia, unspecified; E66.01 Morbid (severe) obesity due to excess calories; E78.5 Hyperlipidemia, unspecified; G47.30 Sleep apnea, unspecified; E11.22 Type 2 diabetes mellitus with diabetic chronic kidney disease; N18.9 Chronic kidney disease, unspecified; R13.10 Dysphagia, unspecified; Z20.822 Contact with and (suspected) exposure to COVID-19; E11.42 Type 2 diabetes mellitus with diabetic polyneuropathy; I95.3 Hypotension of hemodialysis; Z79.4 Long term (current) use of insulin; Z68.37 Body mass index [BMI] 37.0-37.9, adult; Z86.16 Personal history of COVID-19; Z28.310 Unvaccinated for COVID-19; Z90.49 Acquired absence of other specified parts of digestive tract
CPT/HCPCS: 31622; 31720; 36415; 36558; 36569; 36600; 37191; 71045; 73030; 76775; 80048; 80053; 80061; 80074; 81001; 82248; 82270; 82570; 82805; 82962; 83036; 83540; 83550; 83735; 83880; 84100; 84156; 84300; 84443; 84478; 84484; 84550; 85007; 85014; 85018; 85025; 85027; 85379; 85610; 85730; 86850; 86900; 86901; 87040; 87070; 87077; 87081; 87086; 87088; 87186; 87205; 87493; 90935; 92507; 92610; 93005; 93306; 93970; 94002; 94003; 94640; 94660; 96365; 96368; 96375; 97110; 97116; 97163; 97530; 99152; 99291; A4565; C9113; G0378; J0171; J0330; J0690; J0696; J1450; J1642; J1815; J1956; J2001; J2250; J2405; J2543; J2704; J3480; J3490; J7131; P9047; Q9967

== ENCOUNTER 2023-02-25 01:44 | Inpatient (IN) | payer MEDICARE, MEDICAID ==
[~2023-02-25] VITALS: Ht 172.7 cm; Wt 132.7 kg
[2023-02-25 03:05] LABS: Basophils # (auto) 0 10 ^3/uL (0-0.2); Basophils % (auto) 0.7 % (0.0-2.0); Eosinophils # (auto) 0.3 10 ^3/uL (0-0.8); Eosinophils % (auto) 5.9 % (0.0-7.0); Hematocrit 27.2 % (36.0-46.0); Hemoglobin 9.1 g/dL (12.2-16.2); Lymphocytes # (auto) 1.2 10 ^3/uL (0.4-5.4); Lymphocytes % (auto) 25.3 % (10.0-50.0); Mean Corpuscular Hemoglobin 31.4 pg (28.0-32.0); Mean Corpuscular Hgb Conc. 33.4 g/dL (32.0-36.0); Mean Corpuscular Volume 94.1 fL (80.0-100.0); Monocytes # (auto) 0.4 10 ^3/uL (0-1.3); Monocytes % (auto) 8.1 % (0.0-12.0); Neutrophils # (auto) 2.7 10 ^3/uL (1.6-8.6); Red Blood Cells 2.89 10^6/uL (4.0-5.20); White Blood Cell 4.6 10^3/uL (4.4-10.8)
[2023-02-25 03:18] LABS: BUN/Creatinine Ratio 13.7 (10.0-20.0); Calcium 8.3 mg/dL (8.5-10.1); Magnesium 2.1 mg/dL (1.6-2.6); Potassium 4.2 mmol/L (3.5-5.1)
[2023-02-25 03:21] LABS: Total Protein 7.2 g/dL (6.4-8.2)
[2023-02-25] MEDS ORDERED: cefTRIAXone 1GM/50ML D5W 50 ML IV ONE (05:30)
[2023-02-25] MEDS ORDERED: MAALOX PLUS or MAALOX 30 ML PO PRN (09:00)
[2023-02-25] MEDS ORDERED: DOCUSATE SOD 100 MG CAP PO PRN (09:00)
[2023-02-25] MEDS ORDERED: NITROGLYCERIN 0.4 MG SL TAB SL PRN (09:00)
[2023-02-25] MEDS ORDERED: DEXTROSE (50%) 50ML SYRG IV PRN (09:00)
[2023-02-25] MEDS ORDERED: MORPHINE SULFATE INJ 2 MG/ml SYRG IV PRN (09:00)
[2023-02-25] MEDS ORDERED: ONDANSETRON HCL 4 MG/2 ML VIAL IV PRN (09:00)
[2023-02-25] MEDS ORDERED: BUMETANIDE 2.5mg/10ml (0.25 mg/ml) INJ IV ONE (09:30)
[2023-02-25 09:33] VITALS: BP 136/56
[2023-02-25] MEDS: AMPICILLIN & SULBACTAM SODIUM 3 GM in SODIUM CHL 0.9% 100 ML IV SCH ×3 (10:55→21:15)
[2023-02-25] MEDS: amLODIPine BESYLATE 5 MG TAB PO SCH (10:56)
[2023-02-25] MEDS: METOPROLOL SUCCINATE XL 50 MG TAB PO SCH (10:56)
[2023-02-25] MEDS: ENOXAPARIN SOD 40 MG/0.4 ML SYRINGE SC SCH (10:57)
[2023-02-25] MEDS: IPRATROPIUM BROM 0.5 MG/2.5ML INH SOL NEB SCH ×2 (11:22→18:24)
[2023-02-25] MEDS: InsuLIN REG 1unit/0.01ml Soln (100units/ml) SC SCH ×3 (11:30→23:17)
[2023-02-25] MEDS: ACCU-CHEK COMFORT CURVE STRIP VI SCH ×3 (11:53→23:16)
[2023-02-25] MEDS: SODIUM CHLOR 0.9% PF (SALINE LOCK) 10ML VIAL/SYR IV SCH ×2 (14:23→23:16)
[2023-02-25] MEDS: BUMETANIDE 2.5mg/10ml (0.25 mg/ml) INJ IV SCH (17:59)
[2023-02-25] MEDS: HYDROcodone-ACET 5/325MG TAB PO PRN (18:03)
[2023-02-25] MEDS ORDERED: INSU1INJ19 SC (22:23)
[2023-02-25] MEDS ORDERED: PROM1SOL4 PO (22:23)
[2023-02-25] MEDS ORDERED: HYDR-3682 PO (22:23)
[2023-02-25 22:32] VITALS: BP 120/53
[2023-02-25] MEDS ORDERED: METF-371 PO (22:59)
[2023-02-25] MEDS ORDERED: METO-289 PO (22:59)
[2023-02-25] MEDS ORDERED: CANA100T OR (22:59)
[2023-02-26] MEDS: IPRATROPIUM BROM 0.5 MG/2.5ML INH SOL NEB SCH ×4 (00:21→18:02)
[2023-02-26] MEDS ORDERED: CLINDAMYCIN 600MG IV 50 ML IV ONE (00:30)
[2023-02-26] MEDS: AMPICILLIN & SULBACTAM SODIUM 3 GM in SODIUM CHL 0.9% 100 ML IV SCH ×4 (03:15→21:51)
[2023-02-26 05:00] VITALS: BP 130/43
[2023-02-26] MEDS: BUMETANIDE 2.5mg/10ml (0.25 mg/ml) INJ IV SCH ×2 (06:05→18:36)
[2023-02-26] MEDS: SODIUM CHLOR 0.9% PF (SALINE LOCK) 10ML VIAL/SYR IV SCH ×3 (06:05→22:00)
[2023-02-26] MEDS: ACCU-CHEK COMFORT CURVE STRIP VI SCH ×4 (06:06→22:00)
[2023-02-26] MEDS: InsuLIN REG 1unit/0.01ml Soln (100units/ml) SC SCH ×4 (06:07→22:00)
[2023-02-26 07:26] LABS: Hemoglobin 9.6 g/dL (12.2-16.2); Mean Corpuscular Hemoglobin 31.1 pg (28.0-32.0); Mean Corpuscular Hgb Conc. 33.2 g/dL (32.0-36.0); Mean Corpuscular Volume 93.5 fL (80.0-100.0); Red Cell Distribution Width 14.4 % (11.8-14.3); White Blood Cell 10.8 10^3/uL (4.4-10.8)
[2023-02-26 07:37] LABS: Basophils % (manual) 0 (0.0-2.0); Blast Cells 0; Metamyelocytes % 0; Myelocytes % 0; Promyelocytes % 0; Reactive Lymphocytes 0
[2023-02-26 07:47] LABS: Albumin 1.9 g/dL (3.4-5.0); Calcium 8.1 mg/dL (8.5-10.1); Magnesium 1.9 mg/dL (1.6-2.6); Potassium 4.3 mmol/L (3.5-5.1)
[2023-02-26 07:53] LABS: BUN/Creatinine Ratio 14.3 (10.0-20.0); Bilirubin, Total 1.3 mg/dL (0.2-1.0); Total Protein 6.7 g/dL (6.4-8.2)
[2023-02-26 09:00] VITALS: BP 107/59
[2023-02-26 09:16] LABS: Band Neutrophils % (manual) 6; Eosinophils % (manual) 3 (0-7); Lymphocytes % (manual) 3 (10.0-50.0); Monocytes % (manual) 3 (0-12)
[2023-02-26] MEDS: METOPROLOL SUCCINATE XL 50 MG TAB PO SCH (09:42)
[2023-02-26] MEDS: amLODIPine BESYLATE 5 MG TAB PO SCH (09:43)
[2023-02-26] MEDS: ENOXAPARIN SOD 40 MG/0.4 ML SYRINGE SC SCH (09:43)
[2023-02-26 09:59] LABS: Urine Bacteria NONE SEEN /hpf (None Seen); Urine Blood 2+ /uL (Negative); Urine Specific Gravity 1.012 (1.001-1.035); Urine WBC 19 /hpf (0 - 5)
[2023-02-26 12:26] VITALS: BP 98/30
[2023-02-26 17:00] VITALS: BP 113/52
[2023-02-26] MEDS: ACETAMINOPHEN 325 MG TAB PO PRN (19:12)
[2023-02-26] MEDS: HYDROcodone-ACET 5/325MG TAB PO PRN (21:49)
[2023-02-26 22:00] VITALS: BP 107/47
[2023-02-27] MEDS: IPRATROPIUM BROM 0.5 MG/2.5ML INH SOL NEB SCH ×4 (00:17→18:30)
[2023-02-27] MEDS: AMPICILLIN & SULBACTAM SODIUM 3 GM in SODIUM CHL 0.9% 100 ML IV SCH ×4 (03:25→21:23)
[2023-02-27 05:00] VITALS: BP 125/93
[2023-02-27] MEDS: BUMETANIDE 2.5mg/10ml (0.25 mg/ml) INJ IV SCH ×2 (05:59→18:29)
[2023-02-27] MEDS: HYDROcodone-ACET 5/325MG TAB PO PRN ×2 (06:00→16:15)
[2023-02-27] MEDS: SODIUM CHLOR 0.9% PF (SALINE LOCK) 10ML VIAL/SYR IV SCH ×4 (06:02→21:59)
[2023-02-27] MEDS: ACCU-CHEK COMFORT CURVE STRIP VI SCH ×4 (06:02→21:58)
[2023-02-27] MEDS: InsuLIN REG 1unit/0.01ml Soln (100units/ml) SC SCH ×4 (06:02→21:57)
[2023-02-27] MEDS: METOPROLOL SUCCINATE XL 50 MG TAB PO SCH (08:58)
[2023-02-27] MEDS: amLODIPine BESYLATE 5 MG TAB PO SCH (08:58)
[2023-02-27] MEDS: ENOXAPARIN SOD 40 MG/0.4 ML SYRINGE SC SCH (08:58)
[2023-02-27 09:28] VITALS: BP 123/70
[2023-02-27 12:36] VITALS: BP 101/47
[2023-02-27] MEDS: NYSTATIN TOPICAL POWDER 15GM TOP SCH ×2 (13:40→21:59)
[2023-02-27 16:27] VITALS: BP 123/57
[2023-02-27] MEDS: ACETAMINOPHEN 325 MG TAB PO PRN ×2 (18:59→20:29)
[2023-02-27] MEDS: DAKINS HALF STR 0.25% (NaHypochlorite) 473 ML TOPICAL SOL TOP SCH (19:03)
[2023-02-27 22:00] VITALS: BP 142/56
[2023-02-28] MEDS: IPRATROPIUM BROM 0.5 MG/2.5ML INH SOL NEB SCH ×5 (00:13→23:41)
[2023-02-28] MEDS: AMPICILLIN & SULBACTAM SODIUM 3 GM in SODIUM CHL 0.9% 100 ML IV SCH ×4 (03:06→21:24)
[2023-02-28 05:00] VITALS: BP 105/48
[2023-02-28 05:42] VITALS: BP 142/56
[2023-02-28] MEDS: BUMETANIDE 2.5mg/10ml (0.25 mg/ml) INJ IV SCH (06:00)
[2023-02-28 06:06] LABS: Basophils # (auto) 0 10 ^3/uL (0-0.2); Basophils % (auto) 0.2 % (0.0-2.0); Eosinophils # (auto) 0.6 10 ^3/uL (0-0.8); Hematocrit 28.6 % (36.0-46.0); Hemoglobin 9.2 g/dL (12.2-16.2); Lymphocytes # (auto) 0.3 10 ^3/uL (0.4-5.4); Mean Corpuscular Hgb Conc. 32.3 g/dL (32.0-36.0); Mean Corpuscular Volume 95.9 fL (80.0-100.0); Monocytes # (auto) 0.5 10 ^3/uL (0-1.3); Monocytes % (auto) 4.4 % (0.0-12.0); Neutrophils % (auto) 87.4 % (37.0-80.0); Red Blood Cells 2.98 10^6/uL (4.0-5.20); Red Cell Distribution Width 15.5 % (11.8-14.3); White Blood Cell 11.4 10^3/uL (4.4-10.8)
[2023-02-28 06:14] LABS: Calcium 7.8 mg/dL (8.5-10.1)
[2023-02-28 06:16] LABS: BUN/Creatinine Ratio 12.2 (10.0-20.0)
[2023-02-28] MEDS: InsuLIN REG 1unit/0.01ml Soln (100units/ml) SC SCH ×4 (06:26→22:00)
[2023-02-28] MEDS: ACCU-CHEK COMFORT CURVE STRIP VI SCH ×4 (06:26→22:00)
[2023-02-28] MEDS: SODIUM CHLOR 0.9% PF (SALINE LOCK) 10ML VIAL/SYR IV SCH ×3 (06:26→22:00)
[2023-02-28 09:00] VITALS: BP 115/57
[2023-02-28] MEDS: ENOXAPARIN SOD 40 MG/0.4 ML SYRINGE SC SCH (11:09)
[2023-02-28] MEDS: amLODIPine BESYLATE 5 MG TAB PO SCH (11:09)
[2023-02-28] MEDS: METOPROLOL SUCCINATE XL 50 MG TAB PO SCH (11:19)
[2023-02-28 13:00] VITALS: BP 116/49
[2023-02-28 16:29] VITALS: BP 120/51
[2023-02-28] MEDS: NYSTATIN TOPICAL POWDER 15GM TOP SCH ×2 (20:33→22:01)
[2023-02-28] MEDS: HYDROcodone-ACET 5/325MG TAB PO PRN (21:25)
[2023-02-28 22:00] VITALS: BP 101/27
[2023-02-28] MEDS: DAKINS HALF STR 0.25% (NaHypochlorite) 473 ML TOPICAL SOL TOP SCH (22:00)
[2023-03-01 05:00] VITALS: BP 107/46
[2023-03-01 05:22] LABS: Basophils # (auto) 0 10 ^3/uL (0-0.2); Basophils % (auto) 0.2 % (0.0-2.0); Eosinophils # (auto) 0.4 10 ^3/uL (0-0.8); Eosinophils % (auto) 3.4 % (0.0-7.0); Hematocrit 27.2 % (36.0-46.0); Hemoglobin 8.8 g/dL (12.2-16.2); Lymphocytes # (auto) 0.5 10 ^3/uL (0.4-5.4); Lymphocytes % (auto) 4.5 % (10.0-50.0); Mean Corpuscular Hemoglobin 31.3 pg (28.0-32.0); Mean Corpuscular Hgb Conc. 32.4 g/dL (32.0-36.0); Mean Corpuscular Volume 96.6 fL (80.0-100.0); Monocytes # (auto) 0.8 10 ^3/uL (0-1.3); Monocytes % (auto) 6.8 % (0.0-12.0); Neutrophils # (auto) 9.7 10 ^3/uL (1.6-8.6); Neutrophils % (auto) 85.1 % (37.0-80.0); Nucleated Red Blood Cells % 0.1 %; Red Blood Cells 2.81 10^6/uL (4.0-5.20); Red Cell Distribution Width 15.5 % (11.8-14.3); White Blood Cell 11.4 10^3/uL (4.4-10.8)
[2023-03-01 05:32] LABS: Potassium 4.4 mmol/L (3.5-5.1)
[2023-03-01 05:37] LABS: BUN/Creatinine Ratio 11.4 (10.0-20.0)
[2023-03-01] MEDS: AMPICILLIN & SULBACTAM SODIUM 3 GM in SODIUM CHL 0.9% 100 ML IV SCH ×3 (06:32→23:58)
[2023-03-01] MEDS: SODIUM CHLOR 0.9% PF (SALINE LOCK) 10ML VIAL/SYR IV SCH ×3 (06:33→22:08)
[2023-03-01] MEDS: InsuLIN REG 1unit/0.01ml Soln (100units/ml) SC SCH ×4 (07:00→22:00)
[2023-03-01] MEDS: ACCU-CHEK COMFORT CURVE STRIP VI SCH ×4 (07:08→22:00)
[2023-03-01] MEDS: IPRATROPIUM BROM 0.5 MG/2.5ML INH SOL NEB SCH ×3 (07:13→19:58)
[2023-03-01 07:21] LABS: Urine Bacteria MOD /hpf (None Seen); Urine Blood 3+ /uL (Negative); Urine Hyaline Cast FEW /lpf (0 - 2); Urine Mucus FEW (None Seen); Urine Specific Gravity 1.025 (1.001-1.035); Urine WBC 270 /hpf (0 - 5); Urine WBC Clumps PRESENT /hpf (None Seen)
[2023-03-01 07:34] LABS: Protein, Urine 126.7 mg/dL (0.0-11.9)
[2023-03-01] MEDS ORDERED: SODIUM BICARBONATE 50ML VIAL 75 ML in D5W 5% 1,000 ML IV ONE (07:45)
[2023-03-01 09:00] VITALS: BP 104/39
[2023-03-01] MEDS: ENOXAPARIN SOD 30 MG/0.3 ML SYRINGE SC SCH (09:34)
[2023-03-01] MEDS: amLODIPine BESYLATE 5 MG TAB PO SCH (09:36)
[2023-03-01] MEDS: METOPROLOL SUCCINATE XL 50 MG TAB PO SCH (09:42)
[2023-03-01 13:00] VITALS: BP 99/49
[2023-03-01] MEDS: ACETAMINOPHEN 325 MG TAB PO PRN (15:43)
[2023-03-01] MEDS: NYSTATIN TOPICAL POWDER 15GM TOP SCH ×2 (16:04→22:10)
[2023-03-01] MEDS: DAKINS HALF STR 0.25% (NaHypochlorite) 473 ML TOPICAL SOL TOP SCH (16:04)
[2023-03-01] MEDS: DOPamine 1600MCG/ML D5W 250 ML IV SCH (16:19)
[2023-03-01 16:34] VITALS: BP 113/45
[2023-03-01] MEDS: ALBUMIN 25% 100 ML IV SCH ×2 (18:27→22:09)
[2023-03-01] MEDS: BUMETANIDE 1mg/4ml VIAL (0.25mg/ml) IV SCH (20:16)
[2023-03-01 22:00] VITALS: BP 92/33
[2023-03-02] MEDS: IPRATROPIUM BROM 0.5 MG/2.5ML INH SOL NEB SCH ×4 (00:05→18:55)
[2023-03-02 05:00] VITALS: BP 94/55
[2023-03-02] MEDS: BUMETANIDE 1mg/4ml VIAL (0.25mg/ml) IV SCH ×2 (05:17→18:31)
[2023-03-02] MEDS: SODIUM CHLOR 0.9% PF (SALINE LOCK) 10ML VIAL/SYR IV SCH ×3 (05:18→21:26)
[2023-03-02] MEDS: InsuLIN REG 1unit/0.01ml Soln (100units/ml) SC SCH ×4 (05:38→21:19)
[2023-03-02] MEDS: ACCU-CHEK COMFORT CURVE STRIP VI SCH ×4 (05:38→22:06)
[2023-03-02 10:02] VITALS: BP 101/39
[2023-03-02] MEDS: AMPICILLIN & SULBACTAM SODIUM 3 GM in SODIUM CHL 0.9% 100 ML IV SCH ×2 (10:47→22:05)
[2023-03-02] MEDS: amLODIPine BESYLATE 5 MG TAB PO SCH (10:48)
[2023-03-02] MEDS: METOPROLOL SUCCINATE XL 50 MG TAB PO SCH (10:50)
[2023-03-02] MEDS: NYSTATIN TOPICAL POWDER 15GM TOP SCH ×2 (10:56→22:06)
[2023-03-02] MEDS: ENOXAPARIN SOD 30 MG/0.3 ML SYRINGE SC SCH (10:58)
[2023-03-02] MEDS: ALBUMIN 25% 100 ML IV SCH ×2 (13:13→21:21)
[2023-03-02] MEDS: DAKINS HALF STR 0.25% (NaHypochlorite) 473 ML TOPICAL SOL TOP SCH (13:14)
[2023-03-02 13:31] VITALS: BP 94/46
[2023-03-02] MEDS: DOPamine 1600MCG/ML D5W 250 ML IV SCH (14:45)
[2023-03-02] MEDS: ACETAMINOPHEN 325 MG TAB PO PRN (15:26)
[2023-03-02] MEDS: HYDROmorphone HCL 2 MG/ML VL/or syr IV PRN (15:27)
[2023-03-02 16:30] VITALS: BP 96/48
[2023-03-02] MEDS ORDERED: ASPirin 81 mg TAB PO ONE (19:00)
[2023-03-02 20:00] VITALS: BP 87/51
[2023-03-02] MEDS: ATORVASTATIN 20 MG TAB PO SCH (21:34)
[2023-03-02 22:00] VITALS: BP 87/51
[2023-03-02] MEDS: LORazepam 0.5 MG TAB PO PRN (22:45)
[2023-03-03] VITALS (29 sets, daily range): BP systolic 85–126; BP diastolic 30–49
[2023-03-03] MEDS: IPRATROPIUM BROM 0.5 MG/2.5ML INH SOL NEB SCH ×4 (00:06→18:07)
[2023-03-03] MEDS: LORazepam 0.5 MG TAB PO PRN (04:50)
[2023-03-03 05:58] LABS: Basophils # (auto) 0 10 ^3/uL (0-0.2); Eosinophils # (auto) 0.4 10 ^3/uL (0-0.8); Lymphocytes # (auto) 0.9 10 ^3/uL (0.4-5.4); Mean Corpuscular Volume 94.8 fL (80.0-100.0); Nucleated Red Blood Cells % 0.1 %
[2023-03-03 06:00] LABS: Basophils % (auto) 0.3 % (0.0-2.0); Eosinophils % (auto) 3.1 % (0.0-7.0); Hematocrit 25.6 % (36.0-46.0); Hemoglobin 8.3 g/dL (12.2-16.2); Lymphocytes % (auto) 7.5 % (10.0-50.0); Mean Corpuscular Hemoglobin 30.8 pg (28.0-32.0); Mean Corpuscular Hgb Conc. 32.5 g/dL (32.0-36.0); Monocytes % (auto) 7.7 % (0.0-12.0); Neutrophils # (auto) 10.3 10 ^3/uL (1.6-8.6); Neutrophils % (auto) 81.4 % (37.0-80.0); Red Cell Distribution Width 16.2 % (11.8-14.3); White Blood Cell 12.7 10^3/uL (4.4-10.8)
[2023-03-03] MEDS: BUMETANIDE 1mg/4ml VIAL (0.25mg/ml) IV SCH ×2 (06:13→18:11)
[2023-03-03] MEDS: SODIUM CHLOR 0.9% PF (SALINE LOCK) 10ML VIAL/SYR IV SCH ×3 (06:13→22:01)
[2023-03-03 06:17] LABS: Potassium 4.5 mmol/L (3.5-5.1)
[2023-03-03 06:24] LABS: Albumin 2.5 g/dL (3.4-5.0); BUN/Creatinine Ratio 9.6 (10.0-20.0); Bilirubin, Total 1.7 mg/dL (0.2-1.0); Calcium 8.6 mg/dL (8.5-10.1); Total Protein 6.4 g/dL (6.4-8.2)
[2023-03-03] MEDS: InsuLIN REG 1unit/0.01ml Soln (100units/ml) SC SCH ×4 (06:29→22:00)
[2023-03-03] MEDS: ACCU-CHEK COMFORT CURVE STRIP VI SCH ×4 (06:29→22:01)
[2023-03-03] MEDS: DOPamine 1600MCG/ML D5W 250 ML IV SCH ×2 (08:52→19:30)
[2023-03-03] MEDS: ASPirin 81 mg TAB PO SCH (08:54)
[2023-03-03] MEDS: AMPICILLIN & SULBACTAM SODIUM 3 GM in SODIUM CHL 0.9% 100 ML IV SCH ×2 (08:54→22:09)
[2023-03-03] MEDS: DAKINS HALF STR 0.25% (NaHypochlorite) 473 ML TOPICAL SOL TOP SCH (08:55)
[2023-03-03] MEDS: NYSTATIN TOPICAL POWDER 15GM TOP SCH ×2 (08:55→22:05)
[2023-03-03] MEDS: ENOXAPARIN SOD 30 MG/0.3 ML SYRINGE SC SCH (08:55)
[2023-03-03] MEDS: NOREPINEPHRINE 8 MG/250ML KIT 250 ML IV SCH (17:15)
[2023-03-03] MEDS: ACETAMINOPHEN 325 MG TAB PO PRN (18:00)
[2023-03-03] MEDS: HYDROmorphone HCL 2 MG/ML VL/or syr IV PRN (18:01)
[2023-03-03] MEDS: BUMETANIDE INJECTION 12.5 MG in GIVE UN-DILUTED 0 ML IV SCH (20:15)
[2023-03-03] MEDS: ATORVASTATIN 20 MG TAB PO SCH (22:00)
[2023-03-03] MEDS ORDERED: AMIODARONE 450mg/250ml AE 250 ML IV SCH (23:15)
[2023-03-03] MEDS ORDERED: AMIODARONE HCL 150 MG in D5W 5% 100 ML IV ONE (23:15)
[2023-03-03] MEDS ORDERED: AMIODARONE HCL (50 MG/ ML) 3 ML VIAL IV ONE (23:43)
[2023-03-04] VITALS (97 sets, daily range): BP systolic 85–133; BP diastolic 28–56
[2023-03-04] MEDS: HYDROmorphone HCL 2 MG/ML VL/or syr IV PRN ×4 (00:31→14:31)
[2023-03-04 04:30] LABS: Calcium 8.4 mg/dL (8.5-10.1); Potassium 4.6 mmol/L (3.5-5.1)
[2023-03-04 04:32] LABS: Hematocrit 30.3 % (36.0-46.0); Hemoglobin 9.7 g/dL (12.2-16.2); Mean Corpuscular Hemoglobin 30.4 pg (28.0-32.0); Mean Corpuscular Hgb Conc. 31.8 g/dL (32.0-36.0); Mean Corpuscular Volume 95.6 fL (80.0-100.0); Red Blood Cells 3.17 10^6/uL (4.0-5.20); Red Cell Distribution Width 15.9 % (11.8-14.3); White Blood Cell 28.4 10^3/uL (4.4-10.8)
[2023-03-04 04:36] LABS: Albumin 2.4 g/dL (3.4-5.0); BUN/Creatinine Ratio 9.2 (10.0-20.0); Bilirubin, Total 2.4 mg/dL (0.2-1.0)
[2023-03-04] MEDS: NOREPINEPHRINE 8 MG/250ML KIT 250 ML IV SCH ×3 (04:36→22:21)
[2023-03-04 04:39] LABS: Basophils % (manual) 0 (0.0-2.0); Blast Cells 0; Metamyelocytes % 0; Promyelocytes % 0; Reactive Lymphocytes 0
[2023-03-04 05:28] LABS: Band Neutrophils % (manual) 15; Eosinophils % (manual) 3 (0-7); Lymphocytes % (manual) 7 (10.0-50.0); Monocytes % (manual) 5 (0-12); Myelocytes % 1
[2023-03-04] MEDS: SODIUM CHLOR 0.9% PF (SALINE LOCK) 10ML VIAL/SYR IV SCH ×4 (05:51→21:40)
[2023-03-04] MEDS: InsuLIN REG 1unit/0.01ml Soln (100units/ml) SC SCH ×4 (05:57→21:49)
[2023-03-04] MEDS: AMIODARONE 450mg/250ml AE 250 ML IV SCH ×2 (05:57→09:14)
[2023-03-04] MEDS: ACCU-CHEK COMFORT CURVE STRIP VI SCH ×4 (05:57→21:40)
[2023-03-04] MEDS: IPRATROPIUM BROM 0.5 MG/2.5ML INH SOL NEB SCH ×4 (06:44→18:23)
[2023-03-04] MEDS: LORazepam 2MG/ML-1ML VIAL IV PRN ×2 (09:07→22:22)
[2023-03-04] MEDS: AMPICILLIN & SULBACTAM SODIUM 3 GM in SODIUM CHL 0.9% 100 ML IV SCH (09:54)
[2023-03-04] MEDS: ENOXAPARIN SOD 30 MG/0.3 ML SYRINGE SC SCH (09:55)
[2023-03-04] MEDS: ASPirin 81 mg TAB PO SCH (09:55)
[2023-03-04] MEDS: DAKINS HALF STR 0.25% (NaHypochlorite) 473 ML TOPICAL SOL TOP SCH (09:55)
[2023-03-04] MEDS: NYSTATIN TOPICAL POWDER 15GM TOP SCH ×2 (09:55→21:43)
[2023-03-04 10:11] LABS: INR 1.6 (0.9-1.15)
[2023-03-04] MEDS ORDERED: LIDOCAINE 1% (LOCAL ANESTH.) PF 5ml SDV ID ONE (13:30)
[2023-03-04] MEDS ORDERED: VANCOMYCIN PER PHARMACY 0 MG IV SCH (14:15)
[2023-03-04] MEDS ORDERED: VANCOMYCIN 1GM/250ML 250 ML IV ONE ×2 (15:00→18:00)
[2023-03-04] MEDS ORDERED: PANTOPRAZOLE 40 MG/10 ML VIAL INJ IV ONE (16:30)
[2023-03-04] MEDS: BUMETANIDE INJECTION 12.5 MG in GIVE UN-DILUTED 0 ML IV SCH (19:00)
[2023-03-04] MEDS: DOPamine 1600MCG/ML D5W 250 ML IV SCH (19:15)
[2023-03-04] MEDS ORDERED: HEPARIN 1,000 UNITS/ml 1ML VIAL ONE (19:35)
[2023-03-04] MEDS: ATORVASTATIN 20 MG TAB PO SCH (21:40)
[2023-03-04] MEDS ORDERED: PIPERACILLIN-TAZOB 3.375GM 100 ML IV SCH (22:00)
[2023-03-05] VITALS (94 sets, daily range): BP systolic 73–131; BP diastolic 19–64
[2023-03-05] MEDS: AMIODARONE 450mg/250ml AE 250 ML IV SCH (00:22)
[2023-03-05] MEDS: HYDROmorphone HCL 2 MG/ML VL/or syr IV PRN ×2 (01:20→06:28)
[2023-03-05 04:15] LABS: Hematocrit 27.1 % (36.0-46.0); Hemoglobin 8.7 g/dL (12.2-16.2); Mean Corpuscular Hemoglobin 30.8 pg (28.0-32.0); Mean Corpuscular Hgb Conc. 31.9 g/dL (32.0-36.0); Mean Corpuscular Volume 96.5 fL (80.0-100.0); Red Blood Cells 2.81 10^6/uL (4.0-5.20); Red Cell Distribution Width 16.3 % (11.8-14.3); White Blood Cell 26.9 10^3/uL (4.4-10.8)
[2023-03-05 04:18] LABS: Basophils % (manual) 0 (0.0-2.0); Blast Cells 0; Metamyelocytes % 0; Promyelocytes % 0; Reactive Lymphocytes 0
[2023-03-05 04:39] LABS: BUN/Creatinine Ratio 9.6 (10.0-20.0); Calcium 8.4 mg/dL (8.5-10.1); Magnesium 1.9 mg/dL (1.6-2.6); Potassium 4.8 mmol/L (3.5-5.1)
[2023-03-05 04:42] LABS: Bilirubin, Total 2.5 mg/dL (0.2-1.0); Total Protein 6.6 g/dL (6.4-8.2)
[2023-03-05] MEDS: InsuLIN REG 1unit/0.01ml Soln (100units/ml) SC SCH ×4 (06:18→22:00)
[2023-03-05] MEDS: SODIUM CHLOR 0.9% PF (SALINE LOCK) 10ML VIAL/SYR IV SCH ×5 (06:18→22:04)
[2023-03-05] MEDS: ACCU-CHEK COMFORT CURVE STRIP VI SCH ×4 (06:18→22:04)
[2023-03-05] MEDS: IPRATROPIUM BROM 0.5 MG/2.5ML INH SOL NEB SCH ×4 (06:21→17:48)
[2023-03-05 06:52] LABS: Band Neutrophils % (manual) 24; Eosinophils % (manual) 2 (0-7); Lymphocytes % (manual) 8 (10.0-50.0); Monocytes % (manual) 7 (0-12); Myelocytes % 1
[2023-03-05] MEDS ORDERED: SODIUM CHL 0.9% 1000 ML BAG XX ONE (07:00)
[2023-03-05] MEDS: ASPirin 81 mg TAB PO SCH (10:00)
[2023-03-05] MEDS: DAKINS HALF STR 0.25% (NaHypochlorite) 473 ML TOPICAL SOL TOP SCH (10:00)
[2023-03-05] MEDS: ENOXAPARIN SOD 30 MG/0.3 ML SYRINGE SC SCH (10:00)
[2023-03-05] MEDS ORDERED: ETOMIDATE (2MG/ML) 20ML VIAL IV ONE (11:10)
[2023-03-05] MEDS ORDERED: MIDAZOLAM DRIP 50 mg/50mL 50 ML IV ONE (11:10)
[2023-03-05] MEDS ORDERED: SUCCINYLCHOLINE CHLORIDE 20 MG/ML 10ML VIAL IV ONE ×2 (11:11→12:00)
[2023-03-05] MEDS ORDERED: fentaNYL Drip 2500mCg/250mlNS 250 ML IV ONE (11:11)
[2023-03-05] MEDS: MIDAZOLAM DRIP 50 mg/50mL 50 ML IV SCH (11:58)
[2023-03-05] MEDS ORDERED: NOREPINEPHRINE 8 MG/250ML KIT 250 ML IV SCH (12:00)
[2023-03-05] MEDS: fentaNYL Drip 2500mCg/250mlNS 250 ML IV SCH (12:11)
[2023-03-05] MEDS: PROPOFOL 100 ML IV SCH ×2 (12:16→15:03)
[2023-03-05] MEDS: NYSTATIN TOPICAL POWDER 15GM TOP SCH ×2 (12:16→22:05)
[2023-03-05] MEDS: NOREPINEPHRINE 8 MG/250ML KIT 250 ML IV SCH (15:02)
[2023-03-05] MEDS: PHENYLEPHRINE IV 250 ML IV SCH (15:45)
[2023-03-05] MEDS ORDERED: SODIUM BICARBONATE 8.4% INJ 50ML SYRINGE ONE (16:23)
[2023-03-05] MEDS: PANTOPRAZOLE 40 MG/10 ML VIAL INJ IV SCH ×2 (16:24→16:29)
[2023-03-05] MEDS ORDERED: SODIUM BICARBONATE 8.4 % INJ 50ML VIAL IV ONE (16:30)
[2023-03-05] MEDS ORDERED: VANCOMYCIN 1GM/250ML 250 ML IV ONE (16:30)
[2023-03-05 17:17] LABS: Albumin 1.9 g/dL (3.4-5.0); Calcium 7.8 mg/dL (8.5-10.1); Magnesium 2.1 mg/dL (1.6-2.6); Potassium 4.8 mmol/L (3.5-5.1)
[2023-03-05 17:23] LABS: BUN/Creatinine Ratio 9.9 (10.0-20.0); Bilirubin, Total 2.3 mg/dL (0.2-1.0); Total Protein 6.2 g/dL (6.4-8.2)
[2023-03-05] MEDS: NOREPINEPHRINE BITARTRATE 32 MG in SODIUM CHL 0.9% 218 ML IV SCH (20:33)
[2023-03-05] MEDS ORDERED: EPOETIN ALFA-EPBX 10,000 UNIT/1ML VIAL SC ONE (21:00)
[2023-03-05] MEDS ORDERED: NOREPINEPHRINE BITARTRATE 6 ML IV ONE (21:05)
[2023-03-05] MEDS ORDERED: NOREPINEPHRINE 8 MG/250ML KIT 250 ML IV ONE (21:05)
[2023-03-05] MEDS: ATORVASTATIN 20 MG TAB PO SCH (22:00)
[2023-03-05] MEDS: MEROPENEM 500MG IVPB 50 ML IV SCH (22:06)
[2023-03-06] VITALS (106 sets, daily range): BP systolic 84–143; BP diastolic 21–57
[2023-03-06] MEDS: PHENYLEPHRINE IV 250 ML IV SCH ×2 (00:05→03:31)
[2023-03-06] MEDS: IPRATROPIUM BROM 0.5 MG/2.5ML INH SOL NEB SCH ×4 (00:19→18:30)
[2023-03-06] MEDS: AMIODARONE 450mg/250ml AE 250 ML IV SCH ×3 (02:15→17:15)
[2023-03-06 04:25] LABS: White Blood Cell 29.9 10^3/uL (4.4-10.8)
[2023-03-06 04:27] LABS: Hematocrit 25.6 % (36.0-46.0); Hemoglobin 8.1 g/dL (12.2-16.2); Mean Corpuscular Hemoglobin 30.7 pg (28.0-32.0); Mean Corpuscular Hgb Conc. 31.8 g/dL (32.0-36.0); Mean Corpuscular Volume 96.7 fL (80.0-100.0); Red Blood Cells 2.65 10^6/uL (4.0-5.20); Red Cell Distribution Width 16.4 % (11.8-14.3)
[2023-03-06 04:36] LABS: Basophils % (manual) 0 (0.0-2.0); Eosinophils % (manual) 0 (0-7); Metamyelocytes % 0
[2023-03-06 04:37] LABS: Blast Cells 0; Myelocytes % 0; Promyelocytes % 0; Reactive Lymphocytes 0
[2023-03-06 04:43] LABS: Albumin 1.8 g/dL (3.4-5.0); BUN/Creatinine Ratio 9.3 (10.0-20.0); Calcium 8.1 mg/dL (8.5-10.1)
[2023-03-06 04:46] LABS: Bilirubin, Total 2.6 mg/dL (0.2-1.0); Total Protein 6.7 g/dL (6.4-8.2)
[2023-03-06] MEDS ORDERED: SODIUM ZIRCONIUM CYCL 10 GM PAK PO ONE (05:45)
[2023-03-06] MEDS: ACCU-CHEK COMFORT CURVE STRIP VI SCH ×4 (06:32→21:42)
[2023-03-06] MEDS: SODIUM CHLOR 0.9% PF (SALINE LOCK) 10ML VIAL/SYR IV SCH ×5 (06:32→21:41)
[2023-03-06] MEDS: InsuLIN REG 1unit/0.01ml Soln (100units/ml) SC SCH ×4 (06:38→21:42)
[2023-03-06] MEDS ORDERED: SODIUM BICARBONATE 8.4 % INJ 50ML VIAL IV ONE (08:00)
[2023-03-06] MEDS ORDERED: ALBUMIN 25% 200 ML IV ONE (08:23)
[2023-03-06] MEDS ORDERED: ALBUMIN 25% 100 ML IV ONE ×3 (08:30→09:55)
[2023-03-06 08:42] LABS: Band Neutrophils % (manual) 14; Lymphocytes % (manual) 7 (10.0-50.0); Monocytes % (manual) 3 (0-12)
[2023-03-06] MEDS: fentaNYL Drip 2500mCg/250mlNS 250 ML IV SCH (10:14)
[2023-03-06] MEDS: PHENYLEPHRINE INJ 80 MG in SODIUM CHL 0.9% 242 ML IV SCH ×2 (10:17→15:38)
[2023-03-06] MEDS: ASPirin 81 mg TAB PO SCH (11:29)
[2023-03-06] MEDS: ENOXAPARIN SOD 30 MG/0.3 ML SYRINGE SC SCH (11:29)
[2023-03-06] MEDS: NYSTATIN TOPICAL POWDER 15GM TOP SCH ×2 (11:30→21:42)
[2023-03-06] MEDS: DAKINS HALF STR 0.25% (NaHypochlorite) 473 ML TOPICAL SOL TOP SCH (11:30)
[2023-03-06] MEDS: MIDAZOLAM DRIP 50 mg/50mL 50 ML IV SCH ×2 (12:00→15:43)
[2023-03-06] MEDS: MEROPENEM 500MG IVPB 50 ML IV SCH ×2 (13:59→21:41)
[2023-03-06] MEDS ORDERED: Glucerna 1.2 Cal 1Liter BOTTLE GT SCH (15:00)
[2023-03-06] MEDS: NOREPINEPHRINE BITARTRATE 32 MG in SODIUM CHL 0.9% 218 ML IV SCH (15:02)
[2023-03-06] MEDS ORDERED: ATROPINE SULFATE 1 MG/1 ML VIAL ONE (15:05)
[2023-03-06] MEDS: D5W 5% 1,000 ML IV SCH (17:30)
[2023-03-06] MEDS ORDERED: VANCOMYCIN 500 MG in D5W 5% 100 ML IV ONE (20:00)
[2023-03-06] MEDS: ATORVASTATIN 20 MG TAB PO SCH (21:41)
[2023-03-07] VITALS (102 sets, daily range): BP systolic 85–121; BP diastolic 2–55
[2023-03-07] MEDS: IPRATROPIUM BROM 0.5 MG/2.5ML INH SOL NEB SCH ×4 (00:27→20:54)
[2023-03-07 04:31] LABS: Basophils # (auto) 0.1 10 ^3/uL (0-0.2); Monocytes # (auto) 0.6 10 ^3/uL (0-1.3)
[2023-03-07 04:34] LABS: Basophils % (auto) 0.4 % (0.0-2.0); Eosinophils # (auto) 0.3 10 ^3/uL (0-0.8); Eosinophils % (auto) 1.2 % (0.0-7.0); Hematocrit 24.8 % (36.0-46.0); Hemoglobin 7.9 g/dL (12.2-16.2); Lymphocytes # (auto) 1.3 10 ^3/uL (0.4-5.4); Lymphocytes % (auto) 5.7 % (10.0-50.0); Mean Corpuscular Hemoglobin 30.6 pg (28.0-32.0); Mean Corpuscular Volume 95.7 fL (80.0-100.0); Monocytes % (auto) 2.4 % (0.0-12.0); Neutrophils # (auto) 20.8 10 ^3/uL (1.6-8.6); Neutrophils % (auto) 90.3 % (37.0-80.0); Nucleated Red Blood Cells % 0.5 %; Red Blood Cells 2.59 10^6/uL (4.0-5.20); Red Cell Distribution Width 16.4 % (11.8-14.3); White Blood Cell 23.1 10^3/uL (4.4-10.8)
[2023-03-07 04:58] LABS: Albumin 2.2 g/dL (3.4-5.0); BUN/Creatinine Ratio 8.7 (10.0-20.0); Calcium 8.1 mg/dL (8.5-10.1)
[2023-03-07 05:01] LABS: Bilirubin, Total 3.5 mg/dL (0.2-1.0); Total Protein 6.7 g/dL (6.4-8.2)
[2023-03-07] MEDS: SODIUM CHLOR 0.9% PF (SALINE LOCK) 10ML VIAL/SYR IV SCH ×5 (05:23→21:33)
[2023-03-07] MEDS: ACCU-CHEK COMFORT CURVE STRIP VI SCH ×4 (06:18→21:32)
[2023-03-07] MEDS: InsuLIN REG 1unit/0.01ml Soln (100units/ml) SC SCH ×4 (06:18→21:32)
[2023-03-07] MEDS: AMIODARONE 450mg/250ml AE 250 ML IV SCH ×2 (08:15→23:15)
[2023-03-07] MEDS: NOREPINEPHRINE BITARTRATE 32 MG in SODIUM CHL 0.9% 218 ML IV SCH (08:43)
[2023-03-07] MEDS: ENOXAPARIN SOD 30 MG/0.3 ML SYRINGE SC SCH (09:54)
[2023-03-07] MEDS: ASPirin 81 mg TAB PO SCH (09:55)
[2023-03-07] MEDS: PANTOPRAZOLE 40 MG/10 ML VIAL INJ IV SCH (10:20)
[2023-03-07] MEDS: NYSTATIN TOPICAL POWDER 15GM TOP SCH ×2 (10:22→21:28)
[2023-03-07] MEDS: DAKINS HALF STR 0.25% (NaHypochlorite) 473 ML TOPICAL SOL TOP SCH (10:22)
[2023-03-07] MEDS: MEROPENEM 500MG IVPB 50 ML IV SCH ×2 (10:28→21:27)
[2023-03-07] MEDS: PROPOFOL 100 ML IV SCH (12:00)
[2023-03-07] MEDS: fentaNYL Drip 2500mCg/250mlNS 250 ML IV SCH ×2 (12:00→15:48)
[2023-03-07] MEDS: D5W 5% 1,000 ML IV SCH (12:31)
[2023-03-07] MEDS ORDERED: METOCLOPRAMIDE HCL 5MG/ml INJ 2ml VIAL IV PRN (18:45)
[2023-03-07] MEDS: METOCLOPRAMIDE HCL 5MG/ml INJ 2ml VIAL IV SCH (21:27)
[2023-03-07] MEDS: ATORVASTATIN 20 MG TAB PO SCH (21:28)
[2023-03-08] VITALS (99 sets, daily range): BP systolic 82–121; BP diastolic 20–50
[2023-03-08] MEDS: IPRATROPIUM BROM 0.5 MG/2.5ML INH SOL NEB SCH ×4 (00:06→23:56)
[2023-03-08] MEDS: NOREPINEPHRINE BITARTRATE 32 MG in SODIUM CHL 0.9% 218 ML IV SCH ×2 (00:39→12:45)
[2023-03-08 04:21] LABS: Basophils # (auto) 0.1 10 ^3/uL (0-0.2); Basophils % (auto) 0.4 % (0.0-2.0); Eosinophils # (auto) 0.4 10 ^3/uL (0-0.8); Lymphocytes # (auto) 1.2 10 ^3/uL (0.4-5.4); Red Blood Cells 2.65 10^6/uL (4.0-5.20)
[2023-03-08 04:24] LABS: Hematocrit 25.1 % (36.0-46.0); Hemoglobin 8.2 g/dL (12.2-16.2); Lymphocytes % (auto) 5.7 % (10.0-50.0); Mean Corpuscular Hgb Conc. 32.6 g/dL (32.0-36.0); Monocytes # (auto) 0.5 10 ^3/uL (0-1.3); Monocytes % (auto) 2.3 % (0.0-12.0); Neutrophils # (auto) 18.2 10 ^3/uL (1.6-8.6); Neutrophils % (auto) 89.6 % (37.0-80.0); Nucleated Red Blood Cells % 0.1 %; Red Cell Distribution Width 16.4 % (11.8-14.3); White Blood Cell 20.3 10^3/uL (4.4-10.8)
[2023-03-08 05:40] LABS: Albumin 2.1 g/dL (3.4-5.0); Calcium 7.8 mg/dL (8.5-10.1); Potassium 4.3 mmol/L (3.5-5.1)
[2023-03-08 05:43] LABS: BUN/Creatinine Ratio 8.4 (10.0-20.0); Bilirubin, Total 3.9 mg/dL (0.2-1.0); Total Protein 6.7 g/dL (6.4-8.2)
[2023-03-08] MEDS: SODIUM CHLOR 0.9% PF (SALINE LOCK) 10ML VIAL/SYR IV SCH ×5 (06:20→21:44)
[2023-03-08] MEDS: METOCLOPRAMIDE HCL 5MG/ml INJ 2ml VIAL IV SCH ×3 (06:20→21:44)
[2023-03-08] MEDS: ACCU-CHEK COMFORT CURVE STRIP VI SCH ×4 (06:21→21:48)
[2023-03-08] MEDS: InsuLIN REG 1unit/0.01ml Soln (100units/ml) SC SCH ×5 (06:21→21:48)
[2023-03-08] MEDS: PHENYLEPHRINE INJ 80 MG in SODIUM CHL 0.9% 242 ML IV SCH ×2 (06:22→20:21)
[2023-03-08] MEDS ORDERED: MEROPENEM 500 MG VIAL IV ONE (10:40)
[2023-03-08] MEDS: PANTOPRAZOLE 40 MG/10 ML VIAL INJ IV SCH (10:47)
[2023-03-08] MEDS: MEROPENEM 500MG IVPB 50 ML IV SCH ×2 (10:47→11:30)
[2023-03-08] MEDS: DAKINS HALF STR 0.25% (NaHypochlorite) 473 ML TOPICAL SOL TOP SCH (10:48)
[2023-03-08] MEDS: ASPirin 81 mg TAB PO SCH (10:49)
[2023-03-08] MEDS: NYSTATIN TOPICAL POWDER 15GM TOP SCH ×2 (10:49→21:45)
[2023-03-08] MEDS: ENOXAPARIN SOD 30 MG/0.3 ML SYRINGE SC SCH (10:50)
[2023-03-08] MEDS: fentaNYL Drip 2500mCg/250mlNS 250 ML IV SCH (11:02)
[2023-03-08] MEDS: ALBUMIN 25% 100 ML IV PRN ×3 (11:40→13:40)
[2023-03-08] MEDS ORDERED: ALBUMIN 25% 100 ML IV ONE (11:43)
[2023-03-08] MEDS: PROPOFOL 100 ML IV SCH ×2 (12:43→18:17)
[2023-03-08] MEDS: MIDAZOLAM DRIP 50 mg/50mL 50 ML IV SCH (12:44)
[2023-03-08] MEDS: AMIODARONE 450mg/250ml AE 250 ML IV SCH (15:39)
[2023-03-08] MEDS ORDERED: VANCOMYCIN 750mg/250ml 250 ML IV ONE (16:00)
[2023-03-08] MEDS ORDERED: EPOETIN ALFA-EPBX 4,000 UNIT/ML VIAL SC ONE (21:00)
[2023-03-08] MEDS: ATORVASTATIN 20 MG TAB PO SCH (21:45)
[2023-03-09] VITALS (104 sets, daily range): BP systolic 81–135; BP diastolic 21–75
[2023-03-09] MEDS ORDERED: PHENYLEPHRINE IV 250 ML IV ONE (03:27)
[2023-03-09] MEDS ORDERED: PHENYLEPHRINE HCL 10 MG/ML VL ONE (03:28)
[2023-03-09 04:28] LABS: Basophils # (auto) 0.1 10 ^3/uL (0-0.2); Hematocrit 22.9 % (36.0-46.0)
[2023-03-09 04:31] LABS: Basophils % (auto) 0.3 % (0.0-2.0); Eosinophils # (auto) 0.5 10 ^3/uL (0-0.8); Eosinophils % (auto) 3.4 % (0.0-7.0); Hemoglobin 7.3 g/dL (12.2-16.2); Lymphocytes # (auto) 0.9 10 ^3/uL (0.4-5.4); Lymphocytes % (auto) 6.4 % (10.0-50.0); Mean Corpuscular Hemoglobin 30.4 pg (28.0-32.0); Mean Corpuscular Hgb Conc. 31.9 g/dL (32.0-36.0); Mean Corpuscular Volume 95.1 fL (80.0-100.0); Monocytes # (auto) 0.4 10 ^3/uL (0-1.3); Monocytes % (auto) 2.6 % (0.0-12.0); Neutrophils # (auto) 12.9 10 ^3/uL (1.6-8.6); Neutrophils % (auto) 87.3 % (37.0-80.0); Nucleated Red Blood Cells % 0.6 %; Red Cell Distribution Width 16.2 % (11.8-14.3); White Blood Cell 14.7 10^3/uL (4.4-10.8)
[2023-03-09 04:43] LABS: Albumin 2.5 g/dL (3.4-5.0); Potassium 3.8 mmol/L (3.5-5.1)
[2023-03-09 04:48] LABS: Total Protein 6.5 g/dL (6.4-8.2)
[2023-03-09] MEDS: AMIODARONE 450mg/250ml AE 250 ML IV SCH (04:57)
[2023-03-09] MEDS ORDERED: VASOPRESSIN 20 UNIT/ML ONE (05:16)
[2023-03-09] MEDS: PHENYLEPHRINE INJ 80 MG in SODIUM CHL 0.9% 242 ML IV SCH ×3 (05:36→19:54)
[2023-03-09] MEDS: VASOPRESSIN 20 UNITS in SODIUM CHL 0.9% 99 ML IV SCH ×2 (05:44→14:20)
[2023-03-09] MEDS: METOCLOPRAMIDE HCL 5MG/ml INJ 2ml VIAL IV SCH ×3 (06:13→21:53)
[2023-03-09] MEDS: SODIUM CHLOR 0.9% PF (SALINE LOCK) 10ML VIAL/SYR IV SCH ×5 (06:13→21:53)
[2023-03-09] MEDS: IPRATROPIUM BROM 0.5 MG/2.5ML INH SOL NEB SCH ×3 (06:15→18:00)
[2023-03-09] MEDS: InsuLIN REG 1unit/0.01ml Soln (100units/ml) SC SCH ×4 (06:22→21:54)
[2023-03-09] MEDS: ACCU-CHEK COMFORT CURVE STRIP VI SCH ×4 (06:22→21:54)
[2023-03-09] MEDS ORDERED: MEROPENEM 500MG IVPB 50 ML IV SCH (10:00)
[2023-03-09] MEDS: ASPirin 81 mg TAB PO SCH (10:00)
[2023-03-09] MEDS: PANTOPRAZOLE 40 MG/10 ML VIAL INJ IV SCH (10:18)
[2023-03-09] MEDS: MEROPENEM 500MG IVPB 50 ML IV SCH (10:19)
[2023-03-09] MEDS: fentaNYL Drip 2500mCg/250mlNS 250 ML IV SCH (10:28)
[2023-03-09] MEDS ORDERED: DEXTROSE 10% 250 ML IV ONE (11:51)
[2023-03-09] MEDS: MIDAZOLAM DRIP 50 mg/50mL 50 ML IV SCH (12:00)
[2023-03-09] MEDS: D5W 5% 1,000 ML IV SCH (14:20)
[2023-03-09] MEDS: DAKINS HALF STR 0.25% (NaHypochlorite) 473 ML TOPICAL SOL TOP SCH (14:52)
[2023-03-09] MEDS: NYSTATIN TOPICAL POWDER 15GM TOP SCH ×2 (14:52→21:55)
[2023-03-09] MEDS: NOREPINEPHRINE BITARTRATE 32 MG in SODIUM CHL 0.9% 218 ML IV SCH (15:45)
[2023-03-09] MEDS: ATORVASTATIN 20 MG TAB PO SCH (21:54)
[2023-03-10] VITALS (106 sets, daily range): BP systolic 67–108; BP diastolic 10–79
[2023-03-10] MEDS: IPRATROPIUM BROM 0.5 MG/2.5ML INH SOL NEB SCH ×5 (00:11→23:59)
[2023-03-10] MEDS: VASOPRESSIN 20 UNITS in SODIUM CHL 0.9% 99 ML IV SCH ×3 (00:47→22:44)
[2023-03-10] MEDS: NOREPINEPHRINE BITARTRATE 32 MG in SODIUM CHL 0.9% 218 ML IV SCH ×2 (00:48→18:28)
[2023-03-10] MEDS: PHENYLEPHRINE INJ 80 MG in SODIUM CHL 0.9% 242 ML IV SCH ×3 (02:51→18:26)
[2023-03-10 04:43] LABS: Basophils # (auto) 0 10 ^3/uL (0-0.2); Eosinophils # (auto) 0.4 10 ^3/uL (0-0.8); White Blood Cell 14.1 10^3/uL (4.4-10.8)
[2023-03-10 04:45] LABS: Basophils % (auto) 0.2 % (0.0-2.0); Eosinophils % (auto) 2.8 % (0.0-7.0); Hematocrit 22.3 % (36.0-46.0); Lymphocytes # (auto) 1.2 10 ^3/uL (0.4-5.4); Lymphocytes % (auto) 8.5 % (10.0-50.0); Mean Corpuscular Hgb Conc. 31.3 g/dL (32.0-36.0); Mean Corpuscular Volume 98.8 fL (80.0-100.0); Monocytes # (auto) 0.4 10 ^3/uL (0-1.3); Monocytes % (auto) 2.7 % (0.0-12.0); Neutrophils # (auto) 12.1 10 ^3/uL (1.6-8.6); Neutrophils % (auto) 85.8 % (37.0-80.0); Nucleated Red Blood Cells % 0.4 %; Red Blood Cells 2.26 10^6/uL (4.0-5.20)
[2023-03-10 04:57] LABS: Potassium 4.1 mmol/L (3.5-5.1)
[2023-03-10] MEDS: D5W 5% 1,000 ML IV SCH ×2 (04:59→22:35)
[2023-03-10 05:09] LABS: BUN/Creatinine Ratio 7.5 (10.0-20.0); Calcium 7.7 mg/dL (8.5-10.1); Magnesium 2.1 mg/dL (1.6-2.6); Total Protein 6.3 g/dL (6.4-8.2)
[2023-03-10] MEDS: InsuLIN REG 1unit/0.01ml Soln (100units/ml) SC SCH ×4 (06:09→21:30)
[2023-03-10] MEDS: SODIUM CHLOR 0.9% PF (SALINE LOCK) 10ML VIAL/SYR IV SCH ×5 (06:09→21:31)
[2023-03-10] MEDS: METOCLOPRAMIDE HCL 5MG/ml INJ 2ml VIAL IV SCH ×3 (06:09→21:30)
[2023-03-10] MEDS: ACCU-CHEK COMFORT CURVE STRIP VI SCH ×4 (06:10→21:31)
[2023-03-10] MEDS ORDERED: EPINEPHrine HCL 250 ML IV ONE ×2 (09:04→22:27)
[2023-03-10] MEDS ORDERED: EPINEPHrine HCL 250 ML IV SCH (09:15)
[2023-03-10] MEDS: ASPirin 81 mg TAB PO SCH (10:00)
[2023-03-10] MEDS ORDERED: SODIUM BICARBONATE 8.4 % INJ 50ML VIAL IV ONE ×2 (10:08→10:15)
[2023-03-10] MEDS ORDERED: DOPamine 1600MCG/ML D5W 250 ML IV ONE (10:08)
[2023-03-10] MEDS: DOPamine 1600MCG/ML D5W 250 ML IV SCH ×2 (10:15→13:32)
[2023-03-10] MEDS: MEROPENEM 500MG IVPB 50 ML IV SCH (10:21)
[2023-03-10] MEDS: PANTOPRAZOLE 40 MG/10 ML VIAL INJ IV SCH (10:29)
[2023-03-10] MEDS: AMIODARONE 450mg/250ml AE 250 ML IV SCH (11:15)
[2023-03-10] MEDS: fentaNYL Drip 2500mCg/250mlNS 250 ML IV SCH (11:47)
[2023-03-10] MEDS: PROPOFOL 100 ML IV SCH (11:48)
[2023-03-10] MEDS: MIDAZOLAM DRIP 50 mg/50mL 50 ML IV SCH (11:48)
[2023-03-10] MEDS: DOPamine 3200MCG/ML 250 ML IV SCH ×2 (16:15→21:14)
[2023-03-10] MEDS ORDERED: VANCOMYCIN 500 MG in D5W 5% 100 ML IV ONE (17:00)
[2023-03-10] MEDS: NYSTATIN TOPICAL POWDER 15GM TOP SCH ×2 (17:30→21:31)
[2023-03-10] MEDS: DAKINS HALF STR 0.25% (NaHypochlorite) 473 ML TOPICAL SOL TOP SCH (17:30)
[2023-03-10 17:43] LABS: INR 3.68 (0.9-1.15)
[2023-03-10 17:44] LABS: Partial Thromboplastin Time 70.7 sec (24.6-33.4)
[2023-03-10] MEDS: ATORVASTATIN 20 MG TAB PO SCH (21:32)
[2023-03-10] MEDS: EPINEPHrine HCL INJECTION 16 MG in D5W 5% 234 ML IV SCH (22:35)
[2023-03-11] VITALS (56 sets, daily range): BP systolic 51–80; BP diastolic 10–22
[2023-03-11] MEDS: PHENYLEPHRINE INJ 80 MG in SODIUM CHL 0.9% 242 ML IV SCH ×2 (01:28→08:57)
[2023-03-11] MEDS: DOPamine 1600MCG/ML D5W 250 ML IV SCH ×2 (02:27→05:09)
[2023-03-11] MEDS ORDERED: EPINEPHrine HCL 250 ML IV ONE (05:25)
[2023-03-11] MEDS: InsuLIN REG 1unit/0.01ml Soln (100units/ml) SC SCH ×2 (05:29→12:15)
[2023-03-11] MEDS: METOCLOPRAMIDE HCL 5MG/ml INJ 2ml VIAL IV SCH (05:29)
[2023-03-11] MEDS: ACCU-CHEK COMFORT CURVE STRIP VI SCH ×2 (05:30→12:12)
[2023-03-11] MEDS: SODIUM CHLOR 0.9% PF (SALINE LOCK) 10ML VIAL/SYR IV SCH ×2 (05:30→10:42)
[2023-03-11] MEDS: EPINEPHrine HCL INJECTION 16 MG in D5W 5% 234 ML IV SCH (05:30)
[2023-03-11] MEDS: IPRATROPIUM BROM 0.5 MG/2.5ML INH SOL NEB SCH ×2 (06:19→11:37)
[2023-03-11] MEDS: AMIODARONE 450mg/250ml AE 250 ML IV SCH (08:21)
[2023-03-11] MEDS: DOPamine 3200MCG/ML 250 ML IV SCH (08:23)
[2023-03-11] MEDS: ASPirin 81 mg TAB PO SCH (10:00)
[2023-03-11] MEDS: VASOPRESSIN 20 UNITS in SODIUM CHL 0.9% 99 ML IV SCH (10:22)
[2023-03-11] MEDS: PANTOPRAZOLE 40 MG/10 ML VIAL INJ IV SCH (10:33)
[2023-03-11] MEDS: MEROPENEM 500MG IVPB 50 ML IV SCH (10:37)
[2023-03-11] MEDS ORDERED: SODIUM BICARBONATE 8.4 % INJ 50ML VIAL IV ONE (10:45)
[2023-03-11] MEDS: fentaNYL Drip 2500mCg/250mlNS 250 ML IV SCH (12:00)
[2023-03-11] MEDS ORDERED: VANCOMYCIN 500 MG in D5W 5% 100 ML IV ONE (17:00)
== END 2023-03-11 17:55 | DRG 870 ==
LOC: EDBD 01:44 → ER 01:44 → TELE 09:07 → TELE-WESTW 21:38 → ICU WEST 03-03 17:27
PROVIDERS: ADMIT Internal Medicine; ATTEND Internal Medicine
PROC: 02HV33Z Insertion of Infusion Device into Superior Vena Cava, Percutaneous Approach (ICD-10-PCS; 2023-03-04)
PROC: B548ZZA Ultrasonography of Superior Vena Cava, Guidance (ICD-10-PCS; 2023-03-04)
PROC: 5A09457 Assistance with Respiratory Ventilation, 24-96 Consecutive Hours, Continuous Positive Airway Pressure (ICD-10-PCS; 2023-03-04)
PROC: 5A1955Z Respiratory Ventilation, Greater than 96 Consecutive Hours (ICD-10-PCS; principal; 2023-03-05)
PROC: 5A1D70Z Performance of Urinary Filtration, Intermittent, Less than 6 Hours Per Day (ICD-10-PCS; 2023-03-06)
PROC: 05HD33Z Insertion of Infusion Device into Right Cephalic Vein, Percutaneous Approach (ICD-10-PCS; 2023-03-08)
PROC: 5A1D70Z Performance of Urinary Filtration, Intermittent, Less than 6 Hours Per Day (ICD-10-PCS; 2023-03-08)
PROC: 5A12012 Performance of Cardiac Output, Single, Manual (ICD-10-PCS; 2023-03-11)
DX: A41.9 Sepsis, unspecified organism (principal); E43 Unspecified severe protein-calorie malnutrition; I50.33 Acute on chronic diastolic (congestive) heart failure; N17.0 Acute kidney failure with tubular necrosis; J96.21 Acute and chronic respiratory failure with hypoxia; J96.22 Acute and chronic respiratory failure with hypercapnia; R65.21 Severe sepsis with septic shock; L03.116 Cellulitis of left lower limb; I13.0 Hypertensive heart and chronic kidney disease with heart failure and stage 1 through stage 4 chronic kidney disease, or unspecified chronic kidney disease; L97.929 Non-pressure chronic ulcer of unspecified part of left lower leg with unspecified severity; E87.4 Mixed disorder of acid-base balance; Z68.41 Body mass index [BMI] 40.0-44.9, adult; L03.115 Cellulitis of right lower limb; Z20.822 Contact with and (suspected) exposure to COVID-19; I46.9 Cardiac arrest, cause unspecified; E11.22 Type 2 diabetes mellitus with diabetic chronic kidney disease; I89.0 Lymphedema, not elsewhere classified; E66.01 Morbid (severe) obesity due to excess calories; D63.1 Anemia in chronic kidney disease; N18.30 Chronic kidney disease, stage 3 unspecified; E88.09 Other disorders of plasma-protein metabolism, not elsewhere classified; I48.91 Unspecified atrial fibrillation; E11.51 Type 2 diabetes mellitus with diabetic peripheral angiopathy without gangrene; D69.6 Thrombocytopenia, unspecified; Z95.828 Presence of other vascular implants and grafts; Z90.49 Acquired absence of other specified parts of digestive tract; Z79.4 Long term (current) use of insulin
CPT/HCPCS: 36415; 36569; 36600; 70450; 71045; 76775; 80048; 80053; 80202; 81001; 82570; 82805; 82947; 82962; 83036; 83605; 83735; 83880; 83935; 84156; 84300; 84443; 84484; 85007; 85025; 85027; 85610; 85652; 85730; 86141; 87040; 87070; 87077; 87081; 87086; 87186; 87205; 87426; 87804; 90935; 93005; 93306; 93925; 93970; 94002; 94003; 94640; 94660; 96365; 96375; C9113; G0378; J0171; J0330; J0461; J0696; J1265; J1642; J1815; J2185; J2250; J2405; J2543; J2704; J3490; J7060; P9047